=== PATIENT | male | born 1945 | race Caucasian/White ===

== ENCOUNTER → 2020-10-04 | Outpatient (CLI) | payer MEDICARE, OTHER ==
--- NOTE | 2020-10-05 17:40 | SLEEPCENT ---
DATE: 10/04/2020 ORDERED BY: Betsey Alvarez Nocturnal polysomnography was performed for evaluation of sleep physiology in this patient with a history of excessive somnolence and nonrestorative sleep who has significant comorbidities of atrial fibrillation, type 2 diabetes mellitus, coronary artery disease, and borderline pulmonary hypertension. There were 6 hours and 8 minutes of data reviewed. There was 143 minutes of sleep identified. Sleep latency was normal at 2 minutes. REM sleep was delayed at 200 minutes. Sleep architecture showed poor progression and periods of wake. Overall sleep efficiency was 39.5%. The electrocardiogram showed a sinus rhythm with an average heart rate of 60 beats per minute. Rate ranged 40-80 beats per minute. EEG showed reasonably normal waveforms for wake and sleep. There were 43 respiratory events identified of 10 seconds in duration or greater for an apnea-hypopnea index of 18. The events were not exclusive to sleep stage nor body posture. Arousals from respiratory events occurred 8.8 times per hour, and oxygen desaturations were seen below 90%. There was also some activity in the limb leads. Three trains of 30 events were seen. Limb movement arousal index 8.8. IMPRESSION: Obstructive sleep apnea syndrome (G47.33). Apnea-hypopnea index 18. RECOMMENDATION: The patient should be encouraged to return to the sleep disorder center for pressure therapy. In the interim, alcohol and sedative avoidance should be practiced and caution exercised during the operation of motor vehicles.
== END ==
LOC: M SLEEP 20:00
PROVIDERS: ATTEND Nurse Practitioner Family
DX: G47.33 Obstructive sleep apnea (adult) (pediatric) (principal)

== ENCOUNTER 2020-10-23 18:00 | Inpatient (IN) | payer MEDICARE ==
[~2020-10-23] VITALS: Ht 172.7 cm; Wt 89.2 kg
[2020-10-23] MEDS ORDERED: TAMS1CAP17 (18:35)
[2020-10-23] MEDS ORDERED: LISI10TA22 PO (18:35)
[2020-10-23] MEDS ORDERED: ELIQ5TAB PO (18:35)
[2020-10-23] MEDS ORDERED: SIMV40TA20 PO (18:35)
[2020-10-23] MEDS ORDERED: METF10004 PO (18:35)
[2020-10-23 19:34] LABS: BASO # 0.1 10^3/uL (0.0-0.2); BASO % 0.8 % (0.0-1.0); EOS % 0.5 % (0.0-3.0); HEMATOCRIT 46.3 % (42.0-52.0); HEMOGLOBIN 15.5 g/dl (13.5-17.5); LYMPH # 0.8 10^3/uL (1.5-5.0); LYMPH % 12.6 % (24.0-44.0); MEAN CORPUSCULAR HEMOGLOBIN 30.9 pg (27.0-33.0); MEAN CORPUSCULAR HGB CONC 33.5 g/dl (32.0-36.5); MEAN CORPUSCULAR VOLUME 92.2 fl (80.0-96.0); MONO # 0.4 10^3/uL (0.0-0.8); MONO % 7.3 % (2.0-8.0); NEUTROPHILS # 4.7 10^3/uL (1.5-8.5); NEUTROPHILS % 78.5 % (36.0-66.0); PLATELET COUNT, AUTOMATED 172 10^3/uL (150-450); RED BLOOD COUNT 5.02 10^6/uL (4.30-6.10)
--- NOTE | 2020-10-23 19:45 | ECGEPIP ---
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
[2020-10-23 19:47] LABS: ALBUMIN 3.6 GM/DL (3.2-5.2); ALT/SGPT 29 U/L (12-78); BILIRUBIN,DIRECT 0.3 MG/DL (0.0-0.2); BILIRUBIN,TOTAL 0.9 MG/DL (0.2-1.0); BLOOD UREA NITROGEN 31 MG/DL (7-18); CALCIUM LEVEL 8.6 MG/DL (8.8-10.2); CARBON DIOXIDE LEVEL 21 MEQ/L (21-32); CHLORIDE LEVEL 104 MEQ/L (98-107); CK-MB VALUE MASS 3.9 NG/ML (<3.6); CPK CREATINE PHOSPHOKINASE 382 U/L (39-308); GLOMERULAR FILTRATION RATE 48.4 (>42); GLUCOSE, FASTING 175 MG/DL (70-100); MB/CK RELATIVE INDEX 1.02 (< OR =4); POTASSIUM SERUM 4.4 MEQ/L (3.5-5.1); SODIUM LEVEL 135 MEQ/L (136-145); TOTAL PROTEIN 6.9 GM/DL (6.4-8.2); TROPONIN I < 0.02 NG/ML (< 0.10)
[2020-10-23 19:56] LABS: INR 1.41; PROTHROMBIN TIME 17.6 SECONDS (12.5-14.3)
[2020-10-23 20:00] LABS: D-DIMER QUANT 1152.29 ng/ml (<500)
[2020-10-23 20:03] LABS: C REACTIVE PROTEIN QUANTITATIV 7.42 MG/DL (0.00-0.30)
[2020-10-23] MEDS ORDERED: DAYQUIL PO (20:15)
--- NOTE | 2020-10-23 20:31 | REPVR ---
PROCEDURE INFORMATION: Exam: XR Chest Exam date and time: 10/23/2020 8:12 PM Age: 74 years old Clinical indication: Cough and dyspnea; Additional info: Dyspnea/cough TECHNIQUE: Imaging protocol: XR of the chest Views: 1 view. COMPARISON: No relevant prior studies available. FINDINGS: Tubes, catheters and devices: Dual chamber cardiac pacer demonstrated with intact pacer wires. Lungs: Increased markings demonstrated bilaterally predominantly peripherally in the mid and lower lung zones. Although the changes may be chronic the possibility of a acute to subacute pneumonitis not excluded. Pleural spaces: Unremarkable. No pleural effusion. No pneumothorax. Heart/Mediastinum: Unremarkable. No cardiomegaly. Bones/joints: Unremarkable. IMPRESSION: Increased markings demonstrated bilaterally predominantly peripherally in the mid and lower lung zones. Although the changes may be chronic the possibility of a acute to subacute pneumonitis not excluded. Electronically signed by: Chad Pan On 10/23/2020 20:31:45 PM
[2020-10-23] MEDS: APIXABAN 5 MG TAB (ELIQUIS) PO SCH (21:00)
--- NOTE | 2020-10-23 22:14 | HPEPDOC ---
[facility] Medical History & Physical Date of Admission Oct 23, 2020 Date of Service: Oct 23, 2020 Attending Physician: SHASHA QUINTANILLA MD History and Physical CHIEF COMPLAINT: Shortness of breath HISTORY OF PRESENT ILLNESS: Patient is a 74-year-old male, CAD status post stent, atrial fibrillation, on anticoagulation, COPD, hypertension, NIDDM, who presented to the emergency department the evening of 10/23/20 complaining of worsening shortness of breath. Patient reported that his SOB began approximately 10/17/20, worsening following administration of the COVID-19 vaccination on 10/22/20. Reporting a 1 day history of worsening SOB, RODRÍGUEZ, subjective fever and rigors. Out of concern, patient presented to earlier today. A COVID-19 test was performed and patient was determined to be POS. Per report, patient was also hypoxemic with an SPO2 at 88%. Given this, he was transported to the ED for further evaluation. He did receive IV decadron en route. PAST MEDICAL HISTORY: Atrial fibrillation, on Eliquis COPD Hypertension NIDDM ROBERTH CVD PAST SURGICAL HISTORY: CAD/stent placement, 2010 Pacemaker SOCIAL HISTORY: Marital status: Resides in: Live in own home with and granddaughter Employment: Employed part-time at [employer] Tobacco use: Patient is a current every day smoker, 1PPD for approx. 60 years ETOH: Debues ETOH use Illicit drug use: Denies ilicit, IV drugs, including marijuana Other relevant social factors: Patient does wear eyeglasses and upper and lower dentures FAMILY HISTORY: Father: , Alzheimer's and prostate cancer Mother: pacemaker Siblings: Alive, without any known medical history Children: Alive, healthy Hereditary Diseases: Denies any family history of bleeding disorders, breast, lung, colon, pancreatic cancer ALLERGIES: Please see below. REVIEW OF SYSTEMS: CONSTITUTIONAL: Positive three-day history of fever, rigors present as of yesterday, 10/22/20, HEENT: Denies headache, changes in vision, changes in hearing, difficulty swal lowing. No mouth lesions or sores. CARDIOVASCULAR: As any chest pain or chest pressure, no palpitations RESPIRATORY: Reports shortness of breath the last 7 days, worsening since patient received the vaccine on 10/22. Denies any pleuritic chest pain, no orthopnea or PND. Patient does carry a history of a baseline cough with clear phlegm in the a.m. GASTROINTESTINAL: Denies any nausea, vomiting, abdominal pain, constipation or diarrhea no melena or hematochezia GENITOURINARY: Denies any urinary difficulty, including urgency, hesitancy or frequency SKIN: Denies any new or changing skin lesions or rashes, no bruising MUSCULOSKELETAL: As any muscle/joint aches or pains NEUROLOGICAL: Denies any memory deficits, PSYCHIATRIC: Denies any pressure or anxiety ENDOCRINE: History of diabetes, does not check sugars at home, does not remember what his A1c is. HOME MEDICATIONS: Please see below. PHYSICAL EXAMINATION: VITAL SIGNS:Please see below GENERAL APPEARANCE: Patient was interviewed and examined in the emergency department, he was found to be resting comfortably in bed in no acute distress. HEENT: Normocephalic, atraumatic, EOMI, sclera nonicteric CARDIOVASCULAR: Rate and rhythm without murmur, examination limited secondary to disposable stethoscope LUNGS: Clear to auscultation with fair air movement, examination limited secondary to disposable stethoscope ABDOMEN: Half, nontender, nondistended EXTREMITIES: No lower extremity swelling, no calf tenderness bilaterally, able to move extremities equally NEUROLOGICAL: Alert and oriented 3, no aphasia or dysarthria, no facial droop PSYCHIATRIC: Affect are appropriate given patient's current clinical condition LABORATORY DATA: See below. IMAGING: CXR (10/23/20): Increased markings demonstrated bilaterally predominantly perihilarlly in the mid and lower lung zones. Although changes in the chronic possibility of acute and subacute pneumonitis is not excluded. MICROBIOLOGY: Blood cultures (10/23/20): Pending ASSESSMENT: Patient is a 74-year-old male with past medical history significant for CAD status post stent, atrial fibrillation, on anticoagulation, COPD, hypertension, NIDDM who presented to the emergency department the evening of 10/23/20 complaining of worsening shortness of breath. Patient reported that his symptoms began approximately 10/17/20, worsening following administration of the COVID-19 vaccination on 10/22/20. In the emergency department, patient was found to be hypoxic, requiring 2 L of oxygen via nasal cannula. Patient will be admitted for further monitoring and treatment. PLAN: #COVID-19 PNA -Patient tested positive earlier today, 10/23/20 at urgent care, Day #1. Symptoms of increased shortness of breath began on 10/17/20, Day #7. -Patient does have underlying COPD, CAD. D-dimer of 1152. Requiring 3L to maintain sat above 90%. -Continuous pulse ox, continue supplemental oxygen, CPAP at night, contact and airborne precautions, platelets, CRP, INR, BMP, fibrinogen, d-dimer, PT and PTT, ferritin and LDH, troponins. -Dexamethasone 6 mg IV, patient was started on Remdesivir #Lactic acidosis -Suspect secondary hypoxemia -Repeat lactic pending, trend -Conservative use of IVF 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 -BUN/Cr of 24/09.50, c/w last Cr on file in 2010 -Pt does not report history of CKD -Will hold KYM-i -Continue to monitor #Atrial fibrillation, rate controlled -s/p pacemaker, Eliquis for anticoagulation -tele monitoring #CAD -c/w Statin in 2010 #NIDDM -Hold metformin -Diabetic diet, sliding scale, will obtain A1c #HTN -Lisinopril at home -Normotensive, we will hold his KYM inhibitor as we're unsure whether or not his current renal function is baseline #HLD -c/w statin #Obesity, class I -Complicating care -PCP follow-up to discuss healthy lifestyle and diet modifications, coronary vascular exercise 40 minutes 4-5 days per week DVT: Eliquis CODE STATUS: FULL CODE DISPO: home after at least 2 midnight's stay Vital Signs Vital Signs Date Time Temp Pulse Resp B/P (MAP) Pulse Ox O2 Delivery O2 Flow Rate FiO2 10/23/20 18:41 Nasal Cannula 3.0 90 10/23/20 18:08 96.3 79 22 143/72 (95) 92 Laboratory Data Labs 24H Laboratory Tests 2 10/23/20 18:27: Prothrombin Time 17.6H, Prothromb Time International Ratio 1.41, Activated Partial Thromboplast Time 40.0H, D-Dimer, Quantitative 1152.29H, Lactic Acid Level 2.2*H, Ferritin 359, Lactate Dehydrogenase 295H, C-Reactive Protein, Quantitative 7.42H 10/23/20 19:03: Immature Granulocyte % (Auto) 0.3, Neutrophils (%) (Auto) 78.5H, Lymphocytes (%) (Auto) 12.6L, Monocytes (%) (Auto) 7.3, Eosinophils (%) (Auto) 0.5, Basophils (%) (Auto) 0.8, Neutrophils # (Auto) 4.7, Lymphocytes # (Auto) 0.8L, Monocytes # (Auto) 0.4, Eosinophils # (Auto) 0.0, Basophils # (Auto) 0.1, Nucleated Red Blood Cells % (auto) 0.0, Anion Gap 10, Glomerular Filtration Rate 48.4, Calcium Level 8.6L, Total Bilirubin 0.9, Direct Bilirubin 0.3H, Aspartate Amino Transf (AST/SGOT) 27, Alanine Aminotransferase (ALT/SGPT) 29, Alkaline Phosphatase 50, Total Creatine Kinase 382H, Creatine Kinase MB 3.9H, Creatine Kinase MB Relative Index 1.02, Troponin I < 0.02, Total Protein 6.9, Albumin 3.6, Albumin/Globulin Ratio 1.1 CBC/BMP Laboratory Tests 10/23/20 19:03 Microbiology Microbiology 10/23/20 Blood Culture, Received Pending Home Medications Scheduled Apixaban (Eliquis) 5 Mg Tablet, 5 MG PO BID Lisinopril (Lisinopril) 10 Mg Tablet, 10 MG PO DAILY Metformin HCl (Metformin HCl) 1,000 Mg Tablet, 1,000 MG PO BID Simvastatin (Simvastatin) 40 Mg Tablet, 40 MG PO QHS Scheduled PRN [Dayquil] , 2 TABS PO BID PRN for COUGH/ COLD SYMPTOMS PHENYLEPHRINE 5MG/ DEXTROMETHORPHAN 10MG/ ACETAMINOPHEN 325MG IN 1 TAB Allergies Coded Allergies: No Known Allergies (Unverified , 10/23/20) A-FIB/CHADSVASC A-FIB History Current/History of A-Fib/PAF?: Yes Current PO Anticoag Therapy: Yes GME ATTESTATION GME ATTESTATION My faculty preceptor for this patient encounter was physically present during the encounter and was fully available. All aspects of the patient interview, examination, medical decision making process, and medical care plan development were reviewed and approved by the faculty preceptor. The faculty preceptor is aware and concurs with the plan as stated in the body of this note and will attest to such by his/her cosignature. ATTENDING NOTE time of service 1015pm is a 74yr old smoker (since he was 14 or 15 yrs of age) w a hx of CVA, A fib, COPD, HTN, NIDDM & ROBERTH who presented w c/o dyspnea that begun on Friday and was diagnosed with COVID 19 at an urgent care center today; he currently requires 3L of O2 to maintain his O2 sats above 90%. He will be admitted for hypoxemia & acute COPD 2/2 COVID 19. His qCIS Score is 9 points = intermediate risk, since his score is greater than 3 he is a candidate for admission. His 4C mortality sore for COVID-19 is 14 points = 31.4% to 34.9% risk of in-hospital mortality. He also has lactic acidosis which I suspect is type B 2/2 hypoxemia. I discussed smoking cessation with him. Plan: treat for acute COPD 2/2 COVID 19 / trend lactic acid / CPAP w viral filter if available 18cm O2 w supplemental O2 / smoking cessation education / since his COVID scores put him in the high risk category we will check his IL-6 levels and have a low threshold to consult Pulm rest per 's H&P JON REDDING DO Oct 23, 2020 22:14 SHASHA QUINTANILLA MD Oct 23, 2020 23:47
[2020-10-23] MEDS ORDERED: GLUCAGON INJ 1MG VIAL SC PRN (22:50)
[2020-10-23] MEDS ORDERED: DEXTROSE 50% 50 ML SYRINGE IV PRN (22:50)
[2020-10-23] MEDS ORDERED: GLUCOSE 4GM CHEW TABLET PO PRN (22:50)
[2020-10-24] VITALS (8 sets, daily range): BP systolic 110–143; BP diastolic 58–74; O2SAT 91–92
[2020-10-24] MEDS ORDERED: REMDESIVIR 200 MG in NS 250 ML IV ONE ×2
[2020-10-24 00:12] LABS: HEMOGLOBIN A1c 6.9 %
[2020-10-24] MEDS: HumaLOG INSULIN (NovoLOG) PER UNIT SC SCH ×5 (00:20→19:33)
[2020-10-24] MEDS ORDERED: SODIUM CHLORIDE 0.9% INJ 10 ML SYR IV ONE (01:30)
[2020-10-24] MEDS ORDERED: ALBUTEROL 90 MCG/ACT 8GM HFA INHALER INH PRN (03:15)
[2020-10-24] MEDS ORDERED: methylPREDNISolone 125MG 2ML VIAL IV STA (03:15)
[2020-10-24] MEDS: COMBIVENT RESPIMAT 100-20MCG INHALER 4GM INH SCH ×3 (07:29→19:27)
[2020-10-24 07:47] LABS: BASO % 0.7 % (0.0-1.0); HEMATOCRIT 46.5 % (42.0-52.0); HEMOGLOBIN 15.4 g/dl (13.5-17.5); LYMPH # 0.9 10^3/uL (1.5-5.0); LYMPH % 15.6 % (24.0-44.0); MEAN CORPUSCULAR HGB CONC 33.1 g/dl (32.0-36.5); MEAN CORPUSCULAR VOLUME 93.6 fl (80.0-96.0); MONO # 0.3 10^3/uL (0.0-0.8); MONO % 5.6 % (2.0-8.0); NEUTROPHILS # 4.3 10^3/uL (1.5-8.5); NEUTROPHILS % 77.4 % (36.0-66.0); PLATELET COUNT, AUTOMATED 181 10^3/uL (150-450); RED BLOOD COUNT 4.97 10^6/uL (4.30-6.10); WHITE BLOOD COUNT 5.5 10^3/uL (4.0-10.0)
[2020-10-24] MEDS: dexameTHASONE 4 MG/ML 1ML VIAL (J1100 PER 1MG) IV SCH (07:55)
[2020-10-24] MEDS: APIXABAN 5 MG TAB (ELIQUIS) PO SCH ×2 (07:55→19:27)
[2020-10-24] MEDS: PANTOPRAZOLE 40MG TAB (PROTONIX) PO SCH (07:55)
[2020-10-24 08:26] LABS: CALCIUM LEVEL 8.4 MG/DL (8.8-10.2); CREATININE FOR GFR 1.3 MG/DL (0.70-1.30); GLOMERULAR FILTRATION RATE 57.1 (>42); MAGNESIUM LEVEL 2.2 MG/DL (1.8-2.4); POTASSIUM SERUM 4.5 MEQ/L (3.5-5.1)
--- NOTE | 2020-10-24 13:00 | IPNPDOC ---
Text Note Date of Service The patient was seen on 10/24/20. NOTE Subjective: Pt is a 74YO M with a PMH of atrial fibrillation with a pacemaker, CAD, COPD, NIDDMT2, ROBERTH, and COVID vaccination who presents with COVID pneumonia. This is hospital day 2 after pt was started on Remdisivir and Dexamethasone. Pt expresses good appetite, and denies headaches, chest pain, and abdominal pain at this time. Pt denies being on oxygen at home. Objective: General: Pleasant, NAD HEENT: NC, AT. EOMI, no scleral icterus. CV: RRR, Normal S1 and S2. No murmurs, gallops, or rubs. Resp: CTAB with full breath sounds. No wheezes, crackles, or rhonchi. No dullness to percussion. Abdomen: Bowel sounds present. Soft, NT, ND. Extremities: No swelling or edema. Assessment/Plan: #COVID-19 PNA -Patient tested positive on 10/23/20 at urgent care. Symptoms of increased shortness of breath began on 10/17/20, Day #7. -Patient does have underlying COPD, CAD. D-dimer of 1152 and is requiring 3L to maintain sat above 90%. -Continuous pulse ox, continue supplemental oxygen, CPAP at night, contact and airborne precautions, platelets, CRP, INR, BMP, fibrinogen, d-dimer, PT and PTT, ferritin and LDH, troponins. -Dexamethasone 6 mg IV, patient was started on Remdesivir #Lactic acidosis -Suspect secondary hypoxemia -Repeat lactic was 1.9, WNL -Conservative use of IVF due to COVID PNA at this time. 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 -Cr is 1.3 today; Cr 1.5, on file 2010 -Pt does not report history of CKD -Will hold KYM-I -Continue to monitor #Atrial fibrillation, rate controlled -s/p pacemaker, Eliquis for anticoagulation #CAD -c/w Statin in 2010 #NIDDM -Hold metformin -Diabetic diet, sliding scale, will obtain A1c #HTN -Lisinopril at home -Normotensive, holding KYM-I at this time as renal function stabilizes #HLD -c/w home dose statin #Obesity, class I -Complicating care -PCP follow-up to discuss healthy lifestyle and diet modifications, coronary vascular exercise 40 minutes 4-5 days per week DVT: Eliquis Code Status: FULL CODE Disposition: Pending clinical improvement VS,Fishbone, I+O VS, Fishbone, I+O Laboratory Tests 10/23/20 19:03 10/24/20 06:34 Vital Signs Date Time Temp Pulse Resp B/P (MAP) Pulse Ox O2 Delivery O2 Flow Rate FiO2 10/24/20 09:00 4.0 10/24/20 04:11 96.1 60 20 110/63 (79) 94 Nasal Cannula 10/23/20 18:41 90 I&O- Last 24 Hours up to 6 AM 10/24/20 06:00 Intake Total 590 ml Balance 590 ml GME ATTESTATION GME ATTESTATION My faculty preceptor for this patient encounter was physically present during the encounter and was fully available. All aspects of the patient interview, examination, medical decision making process, and medical care plan development were reviewed and approved by the faculty preceptor. The faculty preceptor is aware and concurs with the plan as stated in the body of this note and will attest to such by his/her cosignature. ATTENDING NOTE I, Kevin Dick MD, have independently examined this patient and performed my own physical exam, as well as reviewed the documentation and edited where necessary. I have discussed in detail with the resident / student the findings and plan of treatment as documented by the resident / student and edited their note. I agree with their findings and treatment plan and have edited their documentation. Rafy Suh DO Oct 24, 2020 13:00 KEVIN DICK MD Oct 27, 2020 14:58
[2020-10-24] MEDS: SIMVASTATIN 40 MG TAB PO SCH (19:27)
--- NOTE | 2020-10-24 22:18 | IPNPDOC ---
Text Note Date of Service The patient was seen on 10/24/20. NOTE INTERIM NOTE: 74 yo male, admitted early in the morning on 10/24/20 for COVID PNA, COPD with extensive smoking history. Called to bedside at approx: 2130 to evaluate patient for worsening SOB and increased WOB. Per nursing staff, patient was stable at start of shift, prior to call, patient began desating into the mid 80's. Non-rebreather placed by my arrival time. Saturations increased to 88-90. Examination demonstrated fair/limited air movement throughout. Pt did not appear to be in acute distress. Albuterol treatment administered and Vapotherm initiated at 20/50. Significant improvement noted, saturations increased to 93-94%. Pt resting comfortably. Giv en sudden decline, updated/reviewed advanced directives. Pt clearly reports desire for resuscitation, though adamantly declines intubation. MOLST updated and signed to reflect this. Pt upgraded to PCU status. VS,Fishbone, I+O VS, Fishbone, I+O Laboratory Tests 10/24/20 06:34 Vital Signs Date Time Temp Pulse Resp B/P (MAP) Pulse Ox O2 Delivery O2 Flow Rate FiO2 10/24/20 22:02 50.0 50 10/24/20 20:00 91 High Flow Cannula 10/24/20 19:14 98.2 71 20 143/65 (91) I&O- Last 24 Hours up to 6 AM 10/24/20 06:00 Intake Total 590 ml Balance 590 ml GME ATTESTATION GME ATTESTATION My faculty preceptor for this patient encounter was physically present during the encounter and was fully available. All aspects of the patient interview, examination, medical decision making process, and medical care plan development were reviewed and approved by the faculty preceptor. The faculty preceptor is aware and concurs with the plan as stated in the body of this note and will attest to such by his/her cosignature. ATTENDING NOTE I agree with the above physical findings, assessment, and management plan as documented by my resident physician. JON REDDING DO Oct 24, 2020 22:18 CARLOS BLANDON MD Oct 24, 2020 23:33
[2020-10-24] MEDS: REMDESIVIR 100 MG in NS 250 ML IV SCH (22:31)
[2020-10-25] VITALS (10 sets, daily range): BP systolic 101–133; BP diastolic 56–75; O2SAT 91–95
[2020-10-25] MEDS: SODIUM CHLORIDE 0.9% INJ 10 ML SYR IV SCH
[2020-10-25] MEDS: ACETAMINOPHEN TAB 650MG DOSE (2X325MG) PO PRN ×2 (00:20→01:23)
[2020-10-25] MEDS ORDERED: NICOTINE 21MG/24HR 1 EA TRANSDERMAL As Ordered ONE (00:25)
[2020-10-25] MEDS: NICOTINE 21MG/24HR 1 EA TRANSDERMAL TD SCH (00:35)
[2020-10-25] MEDS ORDERED: hydrOXYzine 25 MG TAB PO ONE (00:45)
[2020-10-25] MEDS ORDERED: ACETAMINOPHEN TAB 650MG DOSE (2X325MG) PO ONE (01:10)
[2020-10-25] MEDS: COMBIVENT RESPIMAT 100-20MCG INHALER 4GM INH SCH ×4 (02:00→20:22)
[2020-10-25 06:35] LABS: BASO # 0.1 10^3/uL (0.0-0.2); BASO % 0.7 % (0.0-1.0); EOS % 0.2 % (0.0-3.0); HEMOGLOBIN 14.3 g/dl (13.5-17.5); LYMPH # 1.3 10^3/uL (1.5-5.0); LYMPH % 15.7 % (24.0-44.0); MEAN CORPUSCULAR HEMOGLOBIN 31.2 pg (27.0-33.0); MEAN CORPUSCULAR VOLUME 91.7 fl (80.0-96.0); MONO # 0.7 10^3/uL (0.0-0.8); MONO % 8.1 % (2.0-8.0); NEUTROPHILS # 6.1 10^3/uL (1.5-8.5); NEUTROPHILS % 74.8 % (36.0-66.0); PLATELET COUNT, AUTOMATED 187 10^3/uL (150-450); RED BLOOD COUNT 4.58 10^6/uL (4.30-6.10); WHITE BLOOD COUNT 8.1 10^3/uL (4.0-10.0)
[2020-10-25 06:44] LABS: INR 1.44; PARTIAL THROMBOPLASTIN TIME 39.7 SECONDS (24.2-38.5); PROTHROMBIN TIME 17.9 SECONDS (12.5-14.3)
[2020-10-25 07:13] LABS: ALBUMIN 3.1 GM/DL (3.2-5.2); ALT/SGPT 37 U/L (12-78); BILIRUBIN,DIRECT 0.2 MG/DL (0.0-0.2); BILIRUBIN,TOTAL 0.5 MG/DL (0.2-1.0); BLOOD UREA NITROGEN 27 MG/DL (7-18); CALCIUM LEVEL 7.9 MG/DL (8.8-10.2); CARBON DIOXIDE LEVEL 23 MEQ/L (21-32); CHLORIDE LEVEL 105 MEQ/L (98-107); CPK CREATINE PHOSPHOKINASE 374 U/L (39-308); CREATININE FOR GFR 1.17 MG/DL (0.70-1.30); FERRITIN 447 NG/ML (26-388); GLOMERULAR FILTRATION RATE > 60.0 (>42); GLUCOSE, FASTING 197 MG/DL (70-100); LDH LACTATE DEHYDROGENASE 318 U/L (87-241); MAGNESIUM LEVEL 2.1 MG/DL (1.8-2.4); NT-PRO BNP 469 PG/ML (<450); POTASSIUM SERUM 3.9 MEQ/L (3.5-5.1); SODIUM LEVEL 136 MEQ/L (136-145); TOTAL PROTEIN 5.9 GM/DL (6.4-8.2); TROPONIN I < 0.02 NG/ML (< 0.10)
[2020-10-25] MEDS: HumaLOG INSULIN (NovoLOG) PER UNIT SC SCH ×4 (08:00→20:55)
[2020-10-25] MEDS: APIXABAN 5 MG TAB (ELIQUIS) PO SCH ×2 (08:01→20:55)
[2020-10-25] MEDS: PANTOPRAZOLE 40MG TAB (PROTONIX) PO SCH (08:01)
[2020-10-25] MEDS: dexameTHASONE 4 MG/ML 1ML VIAL (J1100 PER 1MG) IV SCH (08:01)
[2020-10-25] MEDS ORDERED: predniSONE 20 MG TAB PO SCH (09:00)
--- NOTE | 2020-10-25 10:59 | REP ---
INDICATION: pneumonia COMPARISON: 10/23/2020 TECHNIQUE: Portable AP view of the chest FINDINGS: Lung zuniga demonstrate increased bilateral infiltrates primarily involving the lower lobes (right greater than left). No obvious effusion. No pneumothorax. Mediastinum and cardiac silhouette stable. Skeletal structures stable. IMPRESSION: Increased bilateral multifocal infiltrates (right greater than left). <Electronically signed by Josias Gao > 10/25/20 [id number]
--- NOTE | 2020-10-25 12:01 | IPNPDOC ---
Text Note Date of Service The patient was seen on 10/25/20. NOTE Subjective: Pt is a 74YO M with a PMH of atrial fibrillation with a pacemaker, CAD, COPD, NIDDMT2, ROBERTH, and COVID vaccination who presents with COVID pneumonia. This is hospital day 3 after pt was started on Remdisivir and Dexamethasone. Pt expresses good appetite, and denies headaches, chest pain, and abdominal pain at this time. Pt denies being on oxygen at home. Overnight, pt was anxious and experienced oxygen desaturation. He was placed on vapotherm and given Atarax with resolution of shortness of breath. He states that he feels well today and denies any new concerns. Objective: General: Pleasant, NAD HEENT: NC, AT. EOMI, no scleral icterus. CV: RRR, Normal S1 and S2. No murmurs, gallops, or rubs. Resp: CTAB with full breath sounds. No wheezes, crackles, or rhonchi. No dullness to percussion. Abdomen: Bowel sounds present. Soft, NT, ND. Extremities: No swelling or edema. Assessment/Plan: #COVID-19 PNA -Patient tested positive on 10/23/20 at urgent care. Symptoms of increased shortness of breath began on 10/17/20, Day #8. -Patient does have underlying COPD, CAD. D-dimer of 1152 and is requiring 3L to maintain sat above 90%. -Continuous pulse ox, continue supplemental oxygen, CPAP at night, contact and airborne precautions, platelets, CRP, INR, BMP, fibrinogen, d-dimer, PT and PTT, ferritin and LDH, troponins. -Dexamethasone 6 mg IV, patient was started on Remdesivir -ordered another portable CXR today to appreciate progression of disease -nursing order placed for awake proning. #Lactic acidosis -Suspect secondary hypoxemia -Repeat lactic was 1.9, WNL -Conservative use of IVF due to COVID PNA at this time. 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 -Cr is 1.17 today; Cr 1.5, on file 2010 -Pt does not report history of CKD -Will hold KYM-I -Continue to monitor #Atrial fibrillation, rate controlled -s/p pacemaker, Eliquis for anticoagulation #CAD -c/w Statin in 2010 #NIDDM -Hold metformin -Diabetic diet, sliding scale, will obtain A1c #HTN -Lisinopril at home -Normotensive, holding KYM-I at this time as renal function stabilizes #HLD -c/w home dose statin #Obesity, class I -Complicating care -PCP follow-up to discuss healthy lifestyle and diet modifications, coronary va scular exercise 40 minutes 4-5 days per week DVT: Eliquis Code Status: DNI with limited (still wants CPR, MOLST form completed by Dr. Fernando.) Disposition: Pending clinical improvement VS,Fishbone, I+O VS, Fishbone, I+O Laboratory Tests 10/25/20 05:50 10/25/20 05:54 Vital Signs Date Time Temp Pulse Resp B/P (MAP) Pulse Ox O2 Delivery O2 Flow Rate FiO2 10/25/20 08:00 20.0 45 10/25/20 08:00 97.4 80 20 133/75 (94) 93 HVNI-Vapotherm I&O- Last 24 Hours up to 6 AM 10/25/20 06:00 Intake Total 1680 ml Output Total 800 ml Balance 880 ml GME ATTESTATION GME ATTESTATION My faculty preceptor for this patient encounter was physically present during the encounter and was fully available. All aspects of the patient interview, examination, medical decision making process, and medical care plan development were reviewed and approved by the faculty preceptor. The faculty preceptor is aware and concurs with the plan as stated in the body of this note and will attest to such by his/her cosignature. ATTENDING NOTE I, Kevin Dick MD, have independently examined this patient and performed my own physical exam, as well as reviewed the documentation and edited where necessary. I have discussed in detail with the resident / student the findings and plan of treatment as documented by the resident / student and edited their note. I agree with their findings and treatment plan and have edited their documentation. Rafy Suh DO Oct 25, 2020 12:00 KEVIN DICK MD Oct 27, 2020 14:58
[2020-10-25] MEDS: SIMVASTATIN 40 MG TAB PO SCH (20:55)
[2020-10-25] MEDS: REMDESIVIR 100 MG in NS 250 ML IV SCH (22:48)
[2020-10-26] VITALS (7 sets, daily range): BP systolic 113–134; BP diastolic 55–72; O2SAT 91–92
[2020-10-26] MEDS: SODIUM CHLORIDE 0.9% INJ 10 ML SYR IV SCH (00:28)
[2020-10-26] MEDS: COMBIVENT RESPIMAT 100-20MCG INHALER 4GM INH SCH ×4 (02:00→19:56)
[2020-10-26 05:44] LABS: HEMATOCRIT 44.1 % (42.0-52.0); HEMOGLOBIN 14.7 g/dl (13.5-17.5); MEAN CORPUSCULAR HEMOGLOBIN 30.8 pg (27.0-33.0); MEAN CORPUSCULAR HGB CONC 33.3 g/dl (32.0-36.5); MEAN CORPUSCULAR VOLUME 92.3 fl (80.0-96.0); PLATELET COUNT, AUTOMATED 209 10^3/uL (150-450); RED BLOOD COUNT 4.78 10^6/uL (4.30-6.10); WHITE BLOOD COUNT 8.9 10^3/uL (4.0-10.0)
[2020-10-26 06:02] LABS: BLOOD UREA NITROGEN 24 MG/DL (7-18); CALCIUM LEVEL 8.1 MG/DL (8.8-10.2); CARBON DIOXIDE LEVEL 28 MEQ/L (21-32); CHLORIDE LEVEL 108 MEQ/L (98-107); CREATININE FOR GFR 1.05 MG/DL (0.70-1.30); GLOMERULAR FILTRATION RATE > 60.0 (>42); GLUCOSE, FASTING 161 MG/DL (70-100); POTASSIUM SERUM 4.2 MEQ/L (3.5-5.1); SODIUM LEVEL 138 MEQ/L (136-145)
[2020-10-26 06:12] LABS: ATYPICAL LYMPH 3 % (0-5); EOSINOPHILS 2 % (0-3); LYMPHOCYTES 15 % (16-44); MONOCYTES 3 % (0-5); NEUTROPHILS 77 % (28-66); PLATELET ESTIMATE NORMAL (NORMAL)
[2020-10-26] MEDS: HumaLOG INSULIN (NovoLOG) PER UNIT SC SCH ×4 (07:45→22:30)
[2020-10-26] MEDS: NICOTINE 21MG/24HR 1 EA TRANSDERMAL TD SCH (08:46)
[2020-10-26] MEDS: dexameTHASONE 4 MG/ML 1ML VIAL (J1100 PER 1MG) IV SCH (08:46)
[2020-10-26] MEDS: APIXABAN 5 MG TAB (ELIQUIS) PO SCH ×2 (08:46→22:28)
[2020-10-26] MEDS: PANTOPRAZOLE 40MG TAB (PROTONIX) PO SCH (08:46)
[2020-10-26] MEDS ORDERED: DOCUSATE SODIUM 100MG CAPSULE PO PRN (09:10)
[2020-10-26] MEDS ORDERED: FUROSEMIDE 20MG/2ML VIAL (J1940) IV ONE (11:00)
--- NOTE | 2020-10-26 11:15 | REP ---
INDICATION: worsening hypoxia COMPARISON: 10/25/2020 TECHNIQUE: Portable AP view of the chest FINDINGS: Diffuse bilateral airspace disease again noted and relatively similar to prior examination although mild progression cannot be excluded. No obvious effusion. No pneumothorax. Mediastinum and cardiac silhouette including pacemaker are stable. Skeletal structures are intact. IMPRESSION: Diffuse bilateral airspace disease (right greater than left) relatively similar to prior examination. <Electronically signed by Josias Gao > 10/26/20 1111
[2020-10-26 11:24] LABS: FERRITIN 468 NG/ML (26-388); LDH LACTATE DEHYDROGENASE 321 U/L (87-241)
--- NOTE | 2020-10-26 11:24 | IPNPDOC ---
Text Note Date of Service The patient was seen on 10/26/20. NOTE Subjective: Pt is a 74YO M with a PMH of atrial fibrillation with a pacemaker, CAD, COPD, NIDDMT2, ROBERTH, and COVID vaccination who presents with COVID pneumonia. This is hospital day 3 after pt was started on Remdisivir and Dexamethasone. Pt expresses good appetite, and denies headaches, chest pain, and abdominal pain at this time. Pt denies being on oxygen at home. Overnight, they both are FiO2 was titrated up to 75%. This morning it was able to be titrated down to 70%. Pt states that he feels well today and expresses a good appetite. He denies any new concerns. . He denies any headaches, chest pain or palpitations and abdominal pain at this time. Objective: General: Pleasant, NAD HEENT: NC, AT. EOMI, no scleral icterus. CV: RRR, Normal S1 and S2.* No murmurs, gallops, or rubs. Resp: CTAB with full breath sounds.* No wheezes, crackles, or rhonchi.* No dullness to percussion. Abdomen: Bowel sounds present. Soft, NT, ND. Extremities: No swelling or edema. *Difficult to auscultate due to auditory interruption by Vapotherm machine. Assessment/Plan: #COVID-19 PNA -Patient tested positive on 10/23/20 at urgent care. Symptoms of increased shortness of breath began on 10/17/20, Day #9. -Patient does have underlying COPD, CAD. D-dimer of 1152 and is requiring 3L to maintain sat above 90%. -Continuous pulse ox, continue supplemental oxygen, CPAP at night, contact and airborne precautions, platelets, CRP, INR, BMP, fibrinogen, d-dimer, PT and PTT, ferritin and LDH, troponins. -Dexamethasone 6 mg IV, patient was started on Remdesivir -ordered another portable CXR today to appreciate progression of disease -nursing order placed for awake proning. -IV 20 mg Lasix ordered once to alleviate interstitial edema. -Toclizumab ordered due to patient's increasing O2 requirement. #Lactic acidosis -Suspect secondary hypoxemia -Repeat lactic was 1.9, WNL -Conservative use of IVF due to COVID PNA at this time. 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 -Cr is 1.05 today; Cr 1.5, on file 2010 -Pt does not report history of CKD -Will hold KYM-I -Continue to monitor #Atrial fibrillation, rate controlled -s/p pacemaker, Eliquis for anticoagulation #CAD -c/w Statin in 2010 #NIDDM -Hold metformin -Diabetic diet, sliding scale, will obtain A1c #HTN -Lisinopril at home -Normotensive, holding KYM-I at this time as renal function stabilizes #HLD -c/w home dose statin #Obesity, class I -Complicating care -PCP follow-up to discuss healthy lifestyle and diet modifications, coronary vascular exercise 40 minutes 4-5 days per week DVT: Eliquis Code Status: DNI, limited, patient would still like to receive chest compressions, MOLST form completed by Dr. Fernando in chart. Disposition: Pending clinical improvement VS,Fishbone, I+O VS, Fishbone, I+O Laboratory Tests 10/26/20 05:11 Vital Signs Date Time Temp Pulse Resp B/P (MAP) Pulse Ox O2 Delivery O2 Flow Rate FiO2 10/26/20 08:00 18.0 70 10/26/20 08:00 96.0 64 20 115/72 (86) 91 HVNI-Vapotherm I&O- Last 24 Hours up to 6 AM 10/26/20 06:00 Intake Total 870 ml Output Total 900 ml Balance -30 ml GME ATTESTATION GME ATTESTATION My faculty preceptor for this patient encounter was physically present during the encounter and was fully available. All aspects of the patient interview, examination, medical decision making process, and medical care plan development were reviewed and approved by the faculty preceptor. The faculty preceptor is aware and concurs with the plan as stated in the body of this note and will attest to such by his/her cosignature. ATTENDING NOTE I, Kevin Dick MD, have independently examined this patient and performed my own physical exam, as well as reviewed the documentation and edited where necessary. I have discussed in detail with the resident / student the findings and plan of treatment as documented by the resident / student and edited their note. I agree with their findings and treatment plan and have edited their documentation. Rafy Suh DO Oct 26, 2020 11:23 KEVIN DICK MD Oct 27, 2020 14:58
[2020-10-26] MEDS ORDERED: diphenhydrAMINE 25MG CAP PO PRN (14:00)
[2020-10-26] MEDS ORDERED: diphenhydrAMINE 50MG/ML VIAL (J1200) IV PRN (14:00)
[2020-10-26] MEDS ORDERED: EPINEPHrine INJ 1 MG/ML 1ML AMP IM PRN (14:00)
[2020-10-26] MEDS ORDERED: methylPREDNISolone 125MG 2ML VIAL IV PRN (14:00)
[2020-10-26] MEDS ORDERED: [UNRECOGNIZED DRUG - OTHER] IV ONE ×4 (14:00)
[2020-10-26] MEDS ORDERED: ALBUTEROL SULFATE 2.5 MG/0.5 ML INH NEB SOLN INH PRN (14:00)
[2020-10-26] MEDS: REMDESIVIR 100 MG in NS 250 ML IV SCH (22:28)
[2020-10-26] MEDS: SIMVASTATIN 40 MG TAB PO SCH (22:28)
[2020-10-27] VITALS (8 sets, daily range): BP systolic 126–136; BP diastolic 66–75; O2SAT 92–93
[2020-10-27] MEDS: SODIUM CHLORIDE 0.9% INJ 10 ML SYR IV SCH ×2 (00:04→23:03)
[2020-10-27] MEDS: COMBIVENT RESPIMAT 100-20MCG INHALER 4GM INH SCH ×4 (02:00→19:19)
[2020-10-27 04:57] LABS: HEMATOCRIT 42.3 % (42.0-52.0); HEMOGLOBIN 14.5 g/dl (13.5-17.5); MEAN CORPUSCULAR HEMOGLOBIN 31.7 pg (27.0-33.0); MEAN CORPUSCULAR HGB CONC 34.3 g/dl (32.0-36.5); MEAN CORPUSCULAR VOLUME 92.6 fl (80.0-96.0); PLATELET COUNT, AUTOMATED 228 10^3/uL (150-450); RED BLOOD COUNT 4.57 10^6/uL (4.30-6.10); WHITE BLOOD COUNT 8.8 10^3/uL (4.0-10.0)
[2020-10-27 05:04] LABS: ATYPICAL LYMPH 6 % (0-5); INR 1.31; LYMPHOCYTES 18 % (16-44); MONOCYTES 5 % (0-5); NEUTROPHILS 71 % (28-66); PARTIAL THROMBOPLASTIN TIME 37.8 SECONDS (24.2-38.5); PROTHROMBIN TIME 16.6 SECONDS (12.5-14.3)
[2020-10-27 05:05] LABS: PLATELET ESTIMATE NORMAL (NORMAL)
[2020-10-27 05:06] LABS: ANISOCYTOSIS 1+
[2020-10-27 05:07] LABS: D-DIMER QUANT 780.71 ng/ml (<500)
[2020-10-27 05:16] LABS: ERYTHROCYTE SEDIMENTATION RATE 35 mm/hr (0-20)
[2020-10-27 05:20] LABS: ALBUMIN 2.9 GM/DL (3.2-5.2); ALT/SGPT 46 U/L (12-78); BILIRUBIN,DIRECT 0.2 MG/DL (0.0-0.2); BILIRUBIN,TOTAL 0.5 MG/DL (0.2-1.0); BLOOD UREA NITROGEN 23 MG/DL (7-18); C REACTIVE PROTEIN QUANTITATIV 2.68 MG/DL (0.00-0.30); CALCIUM LEVEL 7.8 MG/DL (8.8-10.2); CARBON DIOXIDE LEVEL 29 MEQ/L (21-32); CHLORIDE LEVEL 106 MEQ/L (98-107); CPK CREATINE PHOSPHOKINASE 112 U/L (39-308); CREATININE FOR GFR 1.17 MG/DL (0.70-1.30); FERRITIN 455 NG/ML (26-388); GLOMERULAR FILTRATION RATE > 60.0 (>42); GLUCOSE, FASTING 207 MG/DL (70-100); LDH LACTATE DEHYDROGENASE 299 U/L (87-241); MAGNESIUM LEVEL 2.1 MG/DL (1.8-2.4); NT-PRO BNP 754 PG/ML (<450); POTASSIUM SERUM 3.9 MEQ/L (3.5-5.1); SODIUM LEVEL 138 MEQ/L (136-145); TOTAL PROTEIN 6.6 GM/DL (6.4-8.2); TROPONIN I < 0.02 NG/ML (< 0.10)
[2020-10-27] MEDS: NICOTINE 21MG/24HR 1 EA TRANSDERMAL TD SCH (08:51)
[2020-10-27] MEDS: PANTOPRAZOLE 40MG TAB (PROTONIX) PO SCH (08:51)
[2020-10-27] MEDS: HumaLOG INSULIN (NovoLOG) PER UNIT SC SCH ×4 (08:51→20:15)
[2020-10-27] MEDS: APIXABAN 5 MG TAB (ELIQUIS) PO SCH ×2 (08:51→20:10)
[2020-10-27] MEDS: dexameTHASONE 4 MG/ML 1ML VIAL (J1100 PER 1MG) IV SCH (08:51)
--- NOTE | 2020-10-27 09:29 | IPNPDOC ---
Text Note Date of Service The patient was seen on 10/27/20. NOTE Subjective: Pt is a 74YO M with a PMH of atrial fibrillation with a pacemaker, CAD, COPD, NIDDMT2, ROBERTH, and COVID vaccination who presents with COVID pneumonia. This is hospital day 3 after pt was started on Remdisivir and Dexamethasone. Pt expresses good appetite, and denies headaches, chest pain, and abdominal pain at this time. Pt denies being on oxygen at home. Overnight, they both are FiO2 requirement was 70%. This morning the nurse tried to titrate down to 65% but was unable to due to oxygenation dropping below 88%. Pt states that he feels well today and expresses a good appetite. He denies any new concerns. He denies any headaches, chest pain or palpitations and abdominal pain at this time. He reports that he wants to go home and feels well enough to do so. Objective: General: Pleasant, NAD HEENT: NC, AT. EOMI, no scleral icterus. CV: RRR, Normal S1 and S2.* No murmurs, gallops, or rubs. Resp: CTAB with full breath sounds.* No wheezes, crackles, or rhonchi.* No dullness to percussion. Abdomen: Bowel sounds present. Soft, NT, ND. Extremities: No swelling or edema. *Difficult to auscultate due to auditory interruption by Vapotherm machine. Assessment/Plan: #COVID-19 PNA -Patient tested positive on 10/23/20 at urgent care. Symptoms of increased shortness of breath began on 10/17/20, Day #9. -Patient does have underlying COPD, CAD. D-dimer of 1152 and is requiring 3L to maintain sat above 90%. -Continuous pulse ox, continue supplemental oxygen, CPAP at night, contact and airborne precautions, platelets, CRP, INR, BMP, fibrinogen, d-dimer, PT and PTT, ferritin and LDH, troponins. -Dexamethasone 6 mg IV, patient was started on Remdesivir -ordered another portable CXR today to appreciate progression of disease -nursing order placed for awake proning. -IV 20 mg Lasix ordered once on 10/26/2020 to alleviate interstitial edema. -Toclizumab administered on 10/26/2020 due to patient's increasing O2 requirement. #Lactic acidosis -Suspect secondary hypoxemia -Repeat lactic was 1.9, WNL -Conservative use of IVF due to COVID PNA at this time. 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 -Cr is 1.05 today; Cr 1.5, on file 2010 -Pt does not report history of CKD -Will hold KYM-I -Continue to monitor #Atrial fibrillation, rate controlled -s/p pacemaker, Eliquis for anticoagulation #CAD -c/w Statin in 2010 #NIDDM -Hold metformin -Diabetic diet, sliding scale, will obtain A1c #HTN -Lisinopril at home -Normotensive, holding KYM-I at this time as renal function stabilizes #HLD -c/w home dose statin #Obesity, class I -Complicating care -PCP follow-up to discuss healthy lifestyle and diet modifications, coronary vascular exercise 40 minutes 4-5 days per week DVT: Eliquis Code Status: DNI, limited, patient would still like to receive chest compressions, MOLST form completed by Dr. Fernando in chart. Disposition: Pending clinical improvement VS,Fishbone, I+O VS, Fishbone, I+O Laboratory Tests 10/27/20 04:39 Vital Signs Date Time Temp Pulse Resp B/P (MAP) Pulse Ox O2 Delivery O2 Flow Rate FiO2 10/27/20 07:52 97.2 56 17 134/66 (88) 93 HVNI-Vapotherm 25.0 65 I&O- Last 24 Hours up to 6 AM 10/27/20 05:59 Intake Total 1990 ml Output Total 2050 ml Balance -60 ml GME ATTESTATION GME ATTESTATION My faculty preceptor for this patient encounter was physically present during the encounter and was fully available. All aspects of the patient interview, examination, medical decision making process, and medical care plan development were reviewed and approved by the faculty preceptor. The faculty preceptor is aware and concurs with the plan as stated in the body of this note and will attest to such by his/her cosignature. ATTENDING NOTE I, Kevin Prescott MD, have independently examined this patient and performed my own physical exam, as well as reviewed the documentation and edited where necessary. I have discussed in detail with the resident / student the findings and plan of treatment as documented by the resident / student and edited their note. I agree with their findings and treatment plan and have edited their documentation. This is a 74-year-old male with past medical history of atrial fibrillation on anticoagulation with a pacemaker, CAD s/p pci , COPD no home oxygen, NIDDMT2, ROBERTH, and who presents to the emergency department the evening of 10/23/20 compl aining of worsening shortness of breath. Patient reported that his SOB began approximately 10/17/20, worsening following administration of the COVID-19 vaccination on 10/22/20. Reporting a 1 day history of worsening SOB, RODRÍGUEZ, subjective fever and rigors. A COVID-19 test was performed and patient was positive Per report, patient was also hypoxemic with an SPO2 at 88%. Given this, he was transported to the ED for further evaluation. He did receive IV decadron en route. He had the radiological features of diffuse interstitial pneumonia, which has been stable over the last 3 days. He was initially on only nasal cannula, but his oxygen requirement has increased and currently he is on 25 L and 70% FiO2. He has gotten remdesevir , which is his D5 along with dexamethasone as well. He continues to be on full dose and accommodation with Eliquis. He was given monoclonal toculizimab as well on 10/26/20 with no major improvement. He continues to have pronating as well as incentive spirometry. He was given 1 dose of Lasix as well as the keep him on the drum drier side. He is stable at this time but continues to require high oxygen requirements. Continue to titrate the high flow. Continue monitoring his infirmity markers every 48-72 hours. Disposition unknown at this time Rafy Suh DO Oct 27, 2020 09:26 KEVIN PRESCOTT MD Oct 27, 2020 15:00
[2020-10-27] MEDS: SIMVASTATIN 40 MG TAB PO SCH (20:10)
[2020-10-27] MEDS: REMDESIVIR 100 MG in NS 250 ML IV SCH (23:03)
[2020-10-28] VITALS (10 sets, daily range): BP systolic 138–156; BP diastolic 71–87; O2SAT 90–92
[2020-10-28] MEDS: COMBIVENT RESPIMAT 100-20MCG INHALER 4GM INH SCH ×4 (01:37→20:24)
[2020-10-28 07:11] LABS: BASO # 0.1 10^3/uL (0.0-0.2); BASO % 0.5 % (0.0-1.0); EOS # 0.1 10^3/uL (0.0-0.5); EOS % 1.1 % (0.0-3.0); HEMATOCRIT 44.9 % (42.0-52.0); LYMPH # 2.2 10^3/uL (1.5-5.0); LYMPH % 19.7 % (24.0-44.0); MEAN CORPUSCULAR HEMOGLOBIN 31.2 pg (27.0-33.0); MEAN CORPUSCULAR HGB CONC 33.4 g/dl (32.0-36.5); MEAN CORPUSCULAR VOLUME 93.3 fl (80.0-96.0); MONO # 0.5 10^3/uL (0.0-0.8); MONO % 4.3 % (2.0-8.0); NEUTROPHILS # 8.3 10^3/uL (1.5-8.5); NEUTROPHILS % 73.9 % (36.0-66.0); PLATELET COUNT, AUTOMATED 272 10^3/uL (150-450); RED BLOOD COUNT 4.81 10^6/uL (4.30-6.10); WHITE BLOOD COUNT 11.3 10^3/uL (4.0-10.0)
[2020-10-28 07:34] LABS: BLOOD UREA NITROGEN 25 MG/DL (7-18); CALCIUM LEVEL 8.2 MG/DL (8.8-10.2); CARBON DIOXIDE LEVEL 28 MEQ/L (21-32); CHLORIDE LEVEL 105 MEQ/L (98-107); CREATININE FOR GFR 1.07 MG/DL (0.70-1.30); GLOMERULAR FILTRATION RATE > 60.0 (>42); GLUCOSE, FASTING 235 MG/DL (70-100); MAGNESIUM LEVEL 2.2 MG/DL (1.8-2.4); POTASSIUM SERUM 4.2 MEQ/L (3.5-5.1); SODIUM LEVEL 138 MEQ/L (136-145)
[2020-10-28] MEDS: PANTOPRAZOLE 40MG TAB (PROTONIX) PO SCH (08:14)
[2020-10-28] MEDS: NICOTINE 21MG/24HR 1 EA TRANSDERMAL TD SCH (08:14)
[2020-10-28] MEDS: HumaLOG INSULIN (NovoLOG) PER UNIT SC SCH ×4 (08:14→20:40)
[2020-10-28] MEDS: APIXABAN 5 MG TAB (ELIQUIS) PO SCH ×2 (08:14→20:38)
[2020-10-28] MEDS: dexameTHASONE 4 MG/ML 1ML VIAL (J1100 PER 1MG) IV SCH (08:14)
--- NOTE | 2020-10-28 09:04 | IPNPDOC ---
Text Note Date of Service The patient was seen on 10/28/20. NOTE HPI: Pt is a 74 year old male with a past medical history of atrial fibrillation s/p pacemaker, CAD, COPD, and ROBERTH who was admitted to [facility] due to dyspnea started around 10/17/2020 and was admitted for COVID pneumonia. Pt denies any fever, chills, chest pain, palpitations, dyspnea, or abdominal pain at the tune if examination. It was noted that patient had exertional dyspnea with oxygen saturation dropped to 82% during exertion with vapotherm Physical examination: General: Pleasant, not in acute distress HEENT: Normocephalic, atraumatic, vapotherm on, no scleral icterus. CV: RRR, Normal S1 and S2. No murmurs noted. Resp: Clear to auscultation bilaterally. No obvious accessory muscle use, labored breathing, wheezing, crackles, or rhonchi noted at the time of examination. However auscultation is difficult due to vapotherm machine. Abdomen: Bowel sounds present in all 4 quadrants, soft, no guarding or distention. No tenderness upon palpation in all 4 quadrants. Extremities: No swelling or edema in bilateral lower extremity. Assessment/Plan: #COVID-19 pneumonia -Patient tested positive on 10/23/20 at urgent care -Patient has continue to be on vapotherm flow rate with 30 FiO2 60 to maintain oxygen saturation. It was noted that patient has been having exertional dyspnea with oxygen sat droppped to 82% with exertion with vapotherm on. He was on Vapotherm flow rate 35 with FiO2 65 earlier -Continuous pulse ox, oxygen therapy, CPAP inpt at night, contact and airborne precautions -respiratory therapy, IS lung expansion -Dexamethasone 6 mg IV and Remdesivir since 10/24/2020. Patient received Tocilizumab on 10/26/2020 -Procalcitonin 0.12 and 0.06, trending down -Patient denies any fever or chills -Toclizumab administered on 10/26/2020 due to patient's increasing O2 requirement #Atrial fibrillation, rate controlled -s/p pacemaker -RRR at time of examination -Continue Eliquis for anticoagulation #History of CAD -Continue Statin -Patient on anticoagulation Eliquis due to history of A. fib #NIDDM -Continue to hold [employer] med metformin -Continue Diabetic diet, sliding scale, glucose checks AC&HS, and hypoglycemia protocol -A1C 6.9 #HTN -Patient has been on Lisinopril at home -Blood pressure grossly unremarkable, patient's home med Lisinopril has been held since admission #Hyperlipidemia -continue with home dose statin #Obesity -Complicating care -Patient will discuss with PCP at follow-up appointments o discuss healthy lifestyle and diet modifications DVT prophylaxis: On Eliquis due to history of a. fib Code Status: DNI, limited, patient would still like to receive chest ej sions Disposition: Pending clinical improvement/oxygen titration Attending Note: Patient seen and examined independently. Agree with resident's note and plan of care. VS,Fishbone, I+O VS, Fishbone, I+O Laboratory Tests 10/28/20 06:21 10/28/20 06:22 Vital Signs Date Time Temp Pulse Resp B/P (MAP) Pulse Ox O2 Delivery O2 Flow Rate FiO2 10/28/20 08:19 96.3 64 20 148/78 (101) 89 HVNI-Vapotherm 30.0 60 I&O- Last 24 Hours up to 6 AM 10/28/20 06:00 Intake Total 2370 ml Output Total 1800 ml Balance 570 ml MISAEL HENDRICKS DO Oct 28, 2020 09:04 JODY SANTIAGO MD Oct 30, 2020 18:40
[2020-10-28] MEDS: SIMVASTATIN 40 MG TAB PO SCH (20:38)
[2020-10-28] MEDS: REMDESIVIR 100 MG in NS 250 ML IV SCH (22:56)
[2020-10-28] MEDS: SODIUM CHLORIDE 0.9% INJ 10 ML SYR IV SCH (22:56)
[2020-10-29] VITALS: BP 129/80; O2SAT 93
[2020-10-29] MEDS: COMBIVENT RESPIMAT 100-20MCG INHALER 4GM INH SCH ×4 (01:06→19:39)
[2020-10-29 05:30] VITALS: O2SAT 91
[2020-10-29 05:52] VITALS: BP 144/84
[2020-10-29 07:30] LABS: BASO # 0.1 10^3/uL (0.0-0.2); BASO % 0.6 % (0.0-1.0); EOS # 0.1 10^3/uL (0.0-0.5); EOS % 1.2 % (0.0-3.0); HEMATOCRIT 45.7 % (42.0-52.0); HEMOGLOBIN 15.5 g/dl (13.5-17.5); LYMPH # 2.7 10^3/uL (1.5-5.0); LYMPH % 22.5 % (24.0-44.0); MEAN CORPUSCULAR HGB CONC 33.9 g/dl (32.0-36.5); MEAN CORPUSCULAR VOLUME 91.4 fl (80.0-96.0); MONO # 0.6 10^3/uL (0.0-0.8); NEUTROPHILS # 8.3 10^3/uL (1.5-8.5); PLATELET COUNT, AUTOMATED 293 10^3/uL (150-450); WHITE BLOOD COUNT 11.9 10^3/uL (4.0-10.0)
[2020-10-29 07:44] LABS: INR 1.27; PROTHROMBIN TIME 16.2 SECONDS (12.5-14.3)
[2020-10-29 07:45] LABS: PARTIAL THROMBOPLASTIN TIME 32.6 SECONDS (24.2-38.5)
[2020-10-29 07:56] LABS: ALBUMIN 3.2 GM/DL (3.2-5.2); ALT/SGPT 66 U/L (12-78); BILIRUBIN,DIRECT 0.2 MG/DL (0.0-0.2); BILIRUBIN,TOTAL 0.6 MG/DL (0.2-1.0); BLOOD UREA NITROGEN 26 MG/DL (7-18); CALCIUM LEVEL 8.5 MG/DL (8.8-10.2); CARBON DIOXIDE LEVEL 27 MEQ/L (21-32); CHLORIDE LEVEL 104 MEQ/L (98-107); CPK CREATINE PHOSPHOKINASE 104 U/L (39-308); FERRITIN 571 NG/ML (26-388); GLOMERULAR FILTRATION RATE > 60.0 (>42); GLUCOSE, FASTING 202 MG/DL (70-100); LDH LACTATE DEHYDROGENASE 329 U/L (87-241); NT-PRO BNP 713 PG/ML (<450); POTASSIUM SERUM 4.3 MEQ/L (3.5-5.1); SODIUM LEVEL 137 MEQ/L (136-145); TOTAL PROTEIN 6.3 GM/DL (6.4-8.2); TROPONIN I < 0.02 NG/ML (< 0.10)
[2020-10-29] MEDS: NICOTINE 21MG/24HR 1 EA TRANSDERMAL TD SCH (08:15)
[2020-10-29] MEDS: dexameTHASONE 4 MG/ML 1ML VIAL (J1100 PER 1MG) IV SCH (08:15)
[2020-10-29] MEDS: PANTOPRAZOLE 40MG TAB (PROTONIX) PO SCH (08:16)
[2020-10-29] MEDS: APIXABAN 5 MG TAB (ELIQUIS) PO SCH ×2 (08:16→21:15)
[2020-10-29] MEDS: HumaLOG INSULIN (NovoLOG) PER UNIT SC SCH ×4 (08:16→21:17)
[2020-10-29 08:19] VITALS: BP 139/80
[2020-10-29 11:53] VITALS: BP 125/73
--- NOTE | 2020-10-29 16:14 | IPNPDOC ---
Text Note Date of Service The patient was seen on 10/29/20. NOTE Subjective: Patient has no new medical complaints this morning. States he is feeling better. No acute overnight events reported. Objective: General: Pleasant, not in acute distress HEENT: NC/AT, vapotherm on CV: RRR, Normal S1 and S2. No murmurs noted. Resp: CTA B/L, labored breathing Assessment/Plan: #COVID-19 pneumonia -Patient tested positive on 10/23/20 at urgent care -continue supplemental oxygen with vapotherm - patient has been having exertional dyspnea with oxygen sat dropped to 82% with exertion with vapotherm on. -Continuous pulse ox, oxygen therapy, CPAP at night, contact and airborne precautions -respiratory treatment, incentive spirometry -Dexamethasone 6 mg IV and Remdesivir since 10/24/2020 -Procalcitonin trending down -Toclizumab administered on 10/26/2020 due to patient's increasing O2 requirement #Atrial fibrillation - rate controlled -Continue Eliquis for anticoagulation #History of CAD -Continue Statin #NIDDM -Continue to hold home med - metformin -Continue Diabetic diet, sliding scale, glucose checks AC&HS, and hypoglycemia protocol -A1C 6.9 #HTN -Patient has been on Lisinopril at home - held inpatient for now #HLD -continue with home dose statin #Obesity -Complicating care -Patient will discuss with PCP at follow-up appointments o discuss healthy lifestyle and diet modifications DVT prophylaxis: On Eliquis due to history of a. fib Code Status: DNI, limited, patient would still like to receive chest compressions Disposition: Pending clinical improvement/oxygen titration VS,Santobone, I+O VS, Fishbone, I+O Vital Signs Date Time Temp Pulse Resp B/P (MAP) Pulse Ox O2 Delivery O2 Flow Rate FiO2 10/29/20 05:52 96.5 60 18 144/84 (104) 91 High Flow Cannula 30.0 60 I&O- Last 24 Hours up to 6 AM 10/29/20 06:00 Intake Total 1710 ml Output Total 1500 ml Balance 210 ml JODY SANTIAGO MD Oct 29, 2020 07:00
[2020-10-29 21:00] VITALS: BP 137/80; O2SAT 91
[2020-10-29] MEDS: SIMVASTATIN 40 MG TAB PO SCH (21:15)
[2020-10-29] MEDS: SODIUM CHLORIDE 0.9% INJ 10 ML SYR IV SCH (23:11)
[2020-10-29] MEDS: REMDESIVIR 100 MG in NS 250 ML IV SCH (23:11)
[2020-10-30] VITALS (7 sets, daily range): BP systolic 119–137; BP diastolic 69–93; O2SAT 88–94
[2020-10-30] MEDS: COMBIVENT RESPIMAT 100-20MCG INHALER 4GM INH SCH ×4 (01:00→20:16)
[2020-10-30 06:25] LABS: BASO # 0.1 10^3/uL (0.0-0.2); BASO % 0.7 % (0.0-1.0); EOS # 0.2 10^3/uL (0.0-0.5); EOS % 1.1 % (0.0-3.0); HEMATOCRIT 46.1 % (42.0-52.0); HEMOGLOBIN 15.9 g/dl (13.5-17.5); LYMPH # 2.8 10^3/uL (1.5-5.0); LYMPH % 20.4 % (24.0-44.0); MEAN CORPUSCULAR HEMOGLOBIN 31.5 pg (27.0-33.0); MEAN CORPUSCULAR HGB CONC 34.5 g/dl (32.0-36.5); MEAN CORPUSCULAR VOLUME 91.3 fl (80.0-96.0); MONO # 0.7 10^3/uL (0.0-0.8); MONO % 5.2 % (2.0-8.0); NEUTROPHILS # 9.6 10^3/uL (1.5-8.5); NEUTROPHILS % 71.3 % (36.0-66.0); PLATELET COUNT, AUTOMATED 296 10^3/uL (150-450); RED BLOOD COUNT 5.05 10^6/uL (4.30-6.10); WHITE BLOOD COUNT 13.5 10^3/uL (4.0-10.0)
[2020-10-30 06:43] LABS: BLOOD UREA NITROGEN 29 MG/DL (7-18); CALCIUM LEVEL 8.4 MG/DL (8.8-10.2); CARBON DIOXIDE LEVEL 27 MEQ/L (21-32); CHLORIDE LEVEL 103 MEQ/L (98-107); CREATININE FOR GFR 1.14 MG/DL (0.70-1.30); GLOMERULAR FILTRATION RATE > 60.0 (>42); GLUCOSE, FASTING 219 MG/DL (70-100); MAGNESIUM LEVEL 2.1 MG/DL (1.8-2.4); POTASSIUM SERUM 4.4 MEQ/L (3.5-5.1); SODIUM LEVEL 136 MEQ/L (136-145)
[2020-10-30] MEDS: NICOTINE 21MG/24HR 1 EA TRANSDERMAL TD SCH (08:13)
[2020-10-30] MEDS: dexameTHASONE 4 MG/ML 1ML VIAL (J1100 PER 1MG) IV SCH (08:14)
[2020-10-30] MEDS: HumaLOG INSULIN (NovoLOG) PER UNIT SC SCH ×4 (08:14→20:34)
[2020-10-30] MEDS: PANTOPRAZOLE 40MG TAB (PROTONIX) PO SCH (08:14)
[2020-10-30] MEDS: APIXABAN 5 MG TAB (ELIQUIS) PO SCH ×2 (08:14→20:33)
--- NOTE | 2020-10-30 14:07 | IPNPDOC ---
Subjective Date Seen The patient was seen on 10/30/20. Subjective Chief Complaint/HPI Subjective: Patient seen at bedside this morning. Did not report any episodes of shortness of breath at night. He is able to that above 94% on 30 L, 60% FiO2 overnight without desaturations. This morning he was able to tolerate without any desaturations on 50% FiO2. Vision. States that he's feeling well and has been using his Acapella device, which helps break up some of the mucus; also using incentive spirometry hourly. No acute events reported by nursing overnight or this morning. Objective: Vital signs: Please see below General: Pleasant, not in acute distress, saturating 94% on 30 L 50% FiO2 of Vapotherm HEENT: NC/AT CV: RRR, Normal S1 and S2. No murmurs, gallops, rubs appreciated Resp: CTA B/L, breathing comfortably on current settings of PEEP, no accessory muscle use. No significant labored breathing appreciated Extr: Trace lower extremity edema bilaterally, no cyanosis, clubbing or rashes appreciated Assessment and plan: This is a 74-year-old male with past medical history significant for CAD status post stent, atrial fibrillation, on anticoagulation, COPD, hypertension, NIDDM who presented to the emergency department the evening of 10/23/20 complaining of worsening shortness of breath. Patient reported that his symptoms began approximately 10/17/20, worsening following administration of the COVID-19 vaccination on 10/22/20. In the emergency department, patient was found to be hypoxic, requiring 2 L of oxygen via nasal cannula. Patient was admitted to the hospital service for acute hypoxic respiratory failure secondary to Covid pneumonia. #Hypoxic respiratory failure secondary to COVID 19 infection with superimposed pneumonia -Patient tested positive on 10/23/20 at urgent care -Patient continues to improve and able to be weaned slowly down on the FiO2 on vapotherm- currently on 50% FIO2 and satting above 90% -Continuous pulse ox, oxygen therapy, CPAP at night, contact and airborne precautions -respiratory treatment, incentive spirometry, acapella -Dexamethasone 6 mg IV and Remdesivir since 10/24/2020 (today is day 7) -C/w monitoring inflamm markers -Toclizumab administered on 10/26/2020 due to patient's increasing O2 requirement #Atrial fibrillation -rate controlled -Continue Eliquis for AC #History of CAD -Continue Statin #NIDDM -Continue to hold home metformin -Continue Diabetic diet, sliding scale, glucose checks AC&HS, and hypoglycemia protocol -A1C 6.9 #HTN -Patient has been on Lisinopril at home - held inpatient for now - bp 137/74 #HLD -continue with home dose statin #Obesity -Complicating care -Patient will discuss with PCP at follow-up appointments o discuss healthy lifestyle and diet modifications DVT prophylaxis: On Eliquis for afib GI ppx: Protonix Fluids: none Code Status: DNI, limited, patient would still like to receive chest compressions Disposition: Patient continues to improve and required less oxygen from day to day. Currently able to wean FiO2 from 60% to 50% without desaturations. Pending further clinical improvement. Continue to wean FiO2 Assessment /Plan Plan/VTE VTE Prophylaxis Ordered?: Yes VS, I&O, 24H, Fishbone Vital Signs/I&O Vital Signs Date Time Temp Pulse Resp B/P (MAP) Pulse Ox O2 Delivery O2 Flow Rate FiO2 10/30/20 09:00 30.0 50 10/30/20 08:30 19 10/30/20 08:30 92 HVNI-Vapotherm 10/30/20 08:00 96.3 79 123/69 (87) I&O- Last 24 Hours up to 6 AM 10/30/20 05:59 Intake Total 1580 ml Output Total 1880 ml Balance -300 ml Laboratory Data 24H LABS Laboratory Tests 2 10/29/20 11:47: Bedside Glucose (Misc Panel) 307H 10/29/20 16:55: Bedside Glucose (Misc Panel) 381H 10/29/20 21:13: Bedside Glucose (Misc Panel) 313H 10/30/20 05:51: Immature Granulocyte % (Auto) 1.3, Neutrophils (%) (Auto) 71.3H, Lymphocytes (%) (Auto) 20.4L, Monocytes (%) (Auto) 5.2, Eosinophils (%) (Auto) 1.1, Basophils (%) (Auto) 0.7, Neutrophils # (Auto) 9.6H, Lymphocytes # (Auto) 2.8, Monocytes # (Auto) 0.7, Eosinophils # (Auto) 0.2, Basophils # (Auto) 0.1, Nucleated Red Blood Cells % (auto) 0.0, Anion Gap 6L, Glomerular Filtration Rate > 60.0, Calcium Level 8.4L, Magnesium Level 2.1 CBC/BMP Laboratory Tests 10/30/20 05:51 Microbiology Microbiology 10/24/20 Blood Culture - Final, Complete NO GROWTH AFTER 5 DAYS 10/23/20 Blood Culture - Final, Complete NO GROWTH AFTER 5 DAYS GME ATTESTATION GME ATTESTATION My faculty preceptor for this patient encounter was physically present during the encounter and was fully available. All aspects of the patient interview, examination, medical decision making process, and medical care plan development were reviewed and approved by the faculty preceptor. The faculty preceptor is aware and concurs with the plan as stated in the body of this note and will attest to such by his/her cosignature. ATTENDING NOTE Attending Note: Patient seen and examined independently. Agree with resident's note and plan of care. Prosper Sterling DO Oct 30, 2020 11:08 JODY SANTIAGO MD Oct 30, 2020 18:38
[2020-10-30] MEDS: SIMVASTATIN 40 MG TAB PO SCH (20:33)
[2020-10-30] MEDS: LEVEMIR (INSULIN DETEMIR) 1 UNITS/0.01ML SC SCH (20:35)
[2020-10-30] MEDS: ACETAMINOPHEN TAB 650MG DOSE (2X325MG) PO PRN (20:35)
[2020-10-30] MEDS: REMDESIVIR 100 MG in NS 250 ML IV SCH (23:15)
[2020-10-30] MEDS: SODIUM CHLORIDE 0.9% INJ 10 ML SYR IV SCH (23:16)
[2020-10-31] VITALS (9 sets, daily range): BP systolic 120–139; BP diastolic 75–85; O2SAT 88–94
[2020-10-31] MEDS: COMBIVENT RESPIMAT 100-20MCG INHALER 4GM INH SCH ×4 (01:03→20:00)
[2020-10-31] MEDS: NICOTINE 21MG/24HR 1 EA TRANSDERMAL TD SCH (08:01)
[2020-10-31] MEDS: dexameTHASONE 4 MG/ML 1ML VIAL (J1100 PER 1MG) IV SCH (08:01)
[2020-10-31] MEDS: HumaLOG INSULIN (NovoLOG) PER UNIT SC SCH ×4 (08:02→20:38)
[2020-10-31] MEDS: LEVEMIR (INSULIN DETEMIR) 1 UNITS/0.01ML SC SCH ×2 (08:02→20:38)
[2020-10-31] MEDS: PANTOPRAZOLE 40MG TAB (PROTONIX) PO SCH (08:04)
[2020-10-31] MEDS: APIXABAN 5 MG TAB (ELIQUIS) PO SCH ×2 (08:04→20:38)
[2020-10-31 08:16] LABS: BASO # 0.1 10^3/uL (0.0-0.2); BASO % 0.4 % (0.0-1.0); EOS # 0.2 10^3/uL (0.0-0.5); HEMATOCRIT 45.2 % (42.0-52.0); HEMOGLOBIN 15.4 g/dl (13.5-17.5); LYMPH # 2.9 10^3/uL (1.5-5.0); LYMPH % 19.2 % (24.0-44.0); MEAN CORPUSCULAR HEMOGLOBIN 31.2 pg (27.0-33.0); MEAN CORPUSCULAR HGB CONC 34.1 g/dl (32.0-36.5); MEAN CORPUSCULAR VOLUME 91.7 fl (80.0-96.0); MONO # 0.9 10^3/uL (0.0-0.8); MONO % 5.9 % (2.0-8.0); NEUTROPHILS # 10.8 10^3/uL (1.5-8.5); NEUTROPHILS % 71.7 % (36.0-66.0); PLATELET COUNT, AUTOMATED 291 10^3/uL (150-450); RED BLOOD COUNT 4.93 10^6/uL (4.30-6.10)
[2020-10-31 08:30] LABS: D-DIMER QUANT 1152.29 ng/ml (<500)
[2020-10-31 08:43] LABS: ALBUMIN 3.2 GM/DL (3.2-5.2); ALT/SGPT 68 U/L (12-78); BILIRUBIN,TOTAL 0.6 MG/DL (0.2-1.0); BLOOD UREA NITROGEN 25 MG/DL (7-18); C REACTIVE PROTEIN QUANTITATIV 0.36 MG/DL (0.00-0.30); CARBON DIOXIDE LEVEL 28 MEQ/L (21-32); CHLORIDE LEVEL 103 MEQ/L (98-107); CREATININE FOR GFR 1.08 MG/DL (0.70-1.30); FERRITIN 458 NG/ML (26-388); GLOMERULAR FILTRATION RATE > 60.0 (>42); GLUCOSE, FASTING 227 MG/DL (70-100); POTASSIUM SERUM 4.2 MEQ/L (3.5-5.1); SODIUM LEVEL 137 MEQ/L (136-145); TOTAL PROTEIN 6.2 GM/DL (6.4-8.2)
--- NOTE | 2020-10-31 10:38 | IPNPDOC ---
Subjective Date Seen The patient was seen on 10/31/20. Subjective Chief Complaint/HPI Subjective: Patient seen at bedside this morning. Did not report any episodes of shortness of breath at night. Had no desaturations overnight on 30 L, 50% FiO2 overnight. This morning he was able to be weaned down to 20 L, 40% FiO2, satting greater than 90%. Patient continues to use his acappella device to break up the mucus/chest congestion. Patient also continues to be compliant with incentive spirometry. Objective: Vital signs: Please see below General: Obese male, not in acute distress, saturating greater than 90% on 20 L, 40 % FiO2 of Vapotherm HEENT: NC/AT CV: RRR, Normal S1 and S2. No murmurs, gallops, rubs appreciated Resp: decreased breath sounds in lung bases, no crackles appreciated, no wheezing Extr: Trace lower extremity edema bilaterally, no cyanosis, clubbing or rashes appreciated Assessment and plan: This is a 74-year-old male with past medical history significant for CAD status post stent, atrial fibrillation, on anticoagulation, COPD, hypertension, NIDDM who presented to the emergency department the evening of 10/23/20 complaining of worsening shortness of breath. Patient reported that his symptoms began a pproximately 10/17/20, worsening following administration of the COVID-19 vaccination on 10/22/20. In the emergency department, patient was found to be hypoxic, requiring 2 L of oxygen via nasal cannula. Patient was admitted to the hospital service for acute hypoxic respiratory failure secondary to Covid pneumonia. #Hypoxic respiratory failure secondary to COVID 19 infection with superimposed pneumonia -Patient tested positive on 10/23/20 at urgent care -Patient continues to improve oxygenation. Currently on 20 L, 40% FiO2, satting greater than 90% -Continuous pulse ox, oxygen therapy, CPAP at night, contact and airborne precautions -respiratory treatment, incentive spirometry, acapella -Dexamethasone 6 mg IV and Remdesivir since 10/24/2020 (today is day 8) -C/w monitoring inflamm markers -Toclizumab administered on 10/26/2020 due to patient's increasing O2 requirement #Atrial fibrillation -rate controlled -Continue Eliquis for AC #History of CAD -Continue Statin #NIDDM - Continue to hold home metformin - A1C 6.9 - Blood sugar running high to 27. This morning, changed Levemir to 20 units daily at bedtime - We'll continue to monitor blood sugars closely with glucose checks before meals and daily at bedtime plus hypoglycemic protocol - Continue with consistent carb diet #HTN -Patient has been on Lisinopril at home - held inpatient for now - bp 139/85 #HLD -continue with home dose statin #Obesity -Complicating care -Patient will discuss with PCP at follow-up appointments o discuss healthy lifestyle and diet modifications DVT prophylaxis: On Eliquis for afib GI ppx: Protonix Fluids: none Code Status: DNI, limited, patient would still like to receive chest compression s Disposition: Pending clinical improvement. Continues to wean down FiO2. Assessment /Plan Plan/VTE VTE Prophylaxis Ordered?: Yes VS, I&O, 24H, Fishbone Vital Signs/I&O Vital Signs Date Time Temp Pulse Resp B/P (MAP) Pulse Ox O2 Delivery O2 Flow Rate FiO2 10/31/20 08:10 89 HVNI-Vapotherm 20.0 40 10/31/20 08:00 97.6 61 18 134/78 (96) I&O- Last 24 Hours up to 6 AM 10/31/20 06:00 Intake Total 1750 ml Output Total 1175 ml Balance 575 ml Laboratory Data 24H LABS Laboratory Tests 2 10/30/20 11:33: Bedside Glucose (Misc Panel) 295H 10/30/20 17:25: Bedside Glucose (Misc Panel) 436H 10/30/20 20:29: Bedside Glucose (Misc Panel) 387H 10/31/20 05:52: Bedside Glucose (Misc Panel) 269H 10/31/20 07:40: Immature Granulocyte % (Auto) 1.8, Neutrophils (%) (Auto) 71.7H, Lymphocytes (%) (Auto) 19.2L, Monocytes (%) (Auto) 5.9, Eosinophils (%) (Auto) 1.0, Basophils (%) (Auto) 0.4, Neutrophils # (Auto) 10.8H, Lymphocytes # (Auto) 2.9, Monocytes # (Auto) 0.9H, Eosinophils # (Auto) 0.2, Basophils # (Auto) 0.1, Nucleated Red Blood Cells % (auto) 0.0, Fibrinogen 275, D-Dimer, Quantitative 1152.29H CBC/BMP Laboratory Tests 10/31/20 07:40 Microbiology Microbiology 10/24/20 Blood Culture - Final, Complete NO GROWTH AFTER 5 DAYS 10/23/20 Blood Culture - Final, Complete NO GROWTH AFTER 5 DAYS GME ATTESTATION GME ATTESTATION My faculty preceptor for this patient encounter was physically present during the encounter and was fully available. All aspects of the patient interview, examination, medical decision making process, and medical care plan development were reviewed and approved by the faculty preceptor. The faculty preceptor is aware and concurs with the plan as stated in the body of this note and will attest to such by his/her cosignature. ATTENDING NOTE I, Raji Berman, have independently examined this patient and performed my own physical exam, as well as reviewed the documentation and edited where necessary. I have discussed in detail with the resident / student the findings and plan of treatment as documented by the resident / student and edited their note. I agree with their findings and treatment plan and have edited their documentation. I will continue to follow the patient during this hospital stay. Prosper Sterling DO Oct 31, 2020 08:37 RAJI BERMAN MD Oct 31, 2020 11:03
[2020-10-31] MEDS: SIMVASTATIN 40 MG TAB PO SCH (20:38)
[2020-10-31] MEDS: REMDESIVIR 100 MG in NS 250 ML IV SCH (22:03)
[2020-10-31] MEDS: SODIUM CHLORIDE 0.9% INJ 10 ML SYR IV SCH (22:04)
[2020-11-01] VITALS (8 sets, daily range): BP systolic 113–126; BP diastolic 63–78; O2SAT 89–94
[2020-11-01] MEDS: COMBIVENT RESPIMAT 100-20MCG INHALER 4GM INH SCH ×4 (01:24→20:19)
[2020-11-01 06:04] LABS: BASO # 0.1 10^3/uL (0.0-0.2); BASO % 0.5 % (0.0-1.0); EOS # 0.2 10^3/uL (0.0-0.5); EOS % 1.2 % (0.0-3.0); HEMATOCRIT 46.2 % (42.0-52.0); HEMOGLOBIN 15.3 g/dl (13.5-17.5); LYMPH # 3.1 10^3/uL (1.5-5.0); LYMPH % 21.3 % (24.0-44.0); MEAN CORPUSCULAR HEMOGLOBIN 30.4 pg (27.0-33.0); MEAN CORPUSCULAR HGB CONC 33.1 g/dl (32.0-36.5); MEAN CORPUSCULAR VOLUME 91.8 fl (80.0-96.0); MONO # 0.9 10^3/uL (0.0-0.8); MONO % 5.9 % (2.0-8.0); NEUTROPHILS # 10.2 10^3/uL (1.5-8.5); NEUTROPHILS % 69.5 % (36.0-66.0); PLATELET COUNT, AUTOMATED 273 10^3/uL (150-450); RED BLOOD COUNT 5.03 10^6/uL (4.30-6.10); WHITE BLOOD COUNT 14.7 10^3/uL (4.0-10.0)
[2020-11-01 06:16] LABS: D-DIMER QUANT 910.54 ng/ml (<500)
[2020-11-01 06:36] LABS: ALBUMIN 3.1 GM/DL (3.2-5.2); ALT/SGPT 60 U/L (12-78); BILIRUBIN,TOTAL 0.6 MG/DL (0.2-1.0); BLOOD UREA NITROGEN 25 MG/DL (7-18); CARBON DIOXIDE LEVEL 27 MEQ/L (21-32); CHLORIDE LEVEL 104 MEQ/L (98-107); CREATININE FOR GFR 1.03 MG/DL (0.70-1.30); FERRITIN 386 NG/ML (26-388); GLOMERULAR FILTRATION RATE > 60.0 (>42); GLUCOSE, FASTING 121 MG/DL (70-100); SODIUM LEVEL 136 MEQ/L (136-145); TOTAL PROTEIN 5.9 GM/DL (6.4-8.2)
[2020-11-01] MEDS ORDERED: SLF 3 ML SYR IV PRN (07:15)
[2020-11-01] MEDS: HumaLOG INSULIN (NovoLOG) PER UNIT SC SCH ×4 (08:23→20:19)
[2020-11-01] MEDS: dexameTHASONE 4 MG/ML 1ML VIAL (J1100 PER 1MG) IV SCH (08:24)
[2020-11-01] MEDS: NICOTINE 21MG/24HR 1 EA TRANSDERMAL TD SCH (08:24)
[2020-11-01] MEDS: APIXABAN 5 MG TAB (ELIQUIS) PO SCH ×2 (08:24→20:17)
[2020-11-01] MEDS: PANTOPRAZOLE 40MG TAB (PROTONIX) PO SCH (08:24)
--- NOTE | 2020-11-01 09:34 | IPNPDOC ---
Subjective Date Seen The patient was seen on 11/01/20. Subjective Chief Complaint/HPI Subjective: Patient seen at bedside this morning. Did not report any episodes of shortness of breath at night. Had no desaturations overnight and was able to be weaned to nasal cannula 5 L. This morning he was able to be weaned down to 4 L NC satting about 90%. Patient will likely be discharged tomorrow if he can tolerate ambulation on 2-3 L of nasal cannula without desaturation below 90%. Objective: Vital signs: Please see below General: Obese male, not in acute distress, saturating greater than 90% on 4L NC, but desats with ambulation HEENT: NC/AT CV: RRR, Normal S1 and S2. No murmurs, gallops, rubs appreciated Resp: decreased breath sounds in lung bases, no crackles appreciated, no wheezing Extr: Trace lower extremity edema bilaterally, no cyanosis, clubbing or rashes appreciated Assessment and plan: This is a 74-year-old male with past medical history significant for CAD status post stent, atrial fibrillation, on anticoagulation, COPD, hypertension, NIDDM who presented to the emergency department the evening of 10/23/20 complaining of worsening shortness of breath. Patient reported that his symptoms began approximately 10/17/20, worsening following administration of the COVID-19 vaccination on 10/22/20. In the emergency department, patient was found to be hypoxic, requiring 2 L of oxygen via nasal cannula. Patient was admitted to the hospital service for acute hypoxic respiratory failure secondary to Covid pneumonia. #Hypoxic respiratory failure secondary to COVID-19 infection with superimposed pneumonia -Patient tested positive on 10/23/20 at urgent care -Patient continues to improve oxygenation. Currently on 4L NC satting greater than 90%, but does desat when he ambulates -Continuous pulse ox, oxygen therapy, CPAP at night, contact and airborne precautions -respiratory treatment, incentive spirometry, acapella -Dexamethasone 6 mg IV and Remdesivir since 10/24/2020 (today is day 9) -Inflammatory markers improving -Toclizumab administered on 10/26/2020 due to patient's increasing O2 requirement #Atrial fibrillation -rate controlled -Continue Eliquis for AC #History of CAD -Continue Statin #NIDDM - Continue to hold home metformin - A1C 6.9 - Blood sugar running high to 27. This morning, changed Levemir to 20 units daily at bedtime - We'll continue to monitor blood sugars closely with glucose checks before meals and daily at bedtime plus hypoglycemic protocol - Continue with consistent carb diet #HTN -Patient has been on Lisinopril at home - held inpatient for now #HLD -continue with home dose statin #Obesity -Complicating care -Patient will discuss with PCP at follow-up appointments o discuss healthy lifestyle and diet modifications DVT prophylaxis: On Eliquis for afib GI ppx: Protonix Fluids: none Code Status: DNI, limited, patient would still like to receive chest compressions Disposition: Continue to wean O2%. He's currently on NC 4L. Likely dc tomorrow if he can tolerated 2-3L NC without desatting below 90%. Assessment /Plan Plan/VTE VTE Prophylaxis Ordered?: Yes VS, I&O, 24H, Fishbone Vital Signs/I&O Vital Signs Date Time Temp Pulse Resp B/P (MAP) Pulse Ox O2 Delivery O2 Flow Rate FiO2 11/01/20 05:06 97.1 64 18 126/78 (94) 90 High Flow Cannula 4.0 10/31/20 16:30 40 I&O- Last 24 Hours up to 6 AM 11/01/20 06:00 Intake Total 1510 ml Output Total 1625 ml Balance -115 ml Laboratory Data 24H LABS Laboratory Tests 2 10/31/20 12:28: Bedside Glucose (Misc Panel) 347H 10/31/20 16:38: Bedside Glucose (Misc Panel) 280H 10/31/20 19:54: Bedside Glucose (Misc Panel) 326H 11/01/20 05:36: Immature Granulocyte % (Auto) 1.6, Neutrophils (%) (Auto) 69.5H, Lymphocytes (%) (Auto) 21.3L, Monocytes (%) (Auto) 5.9, Eosinophils (%) (Auto) 1.2, Basophils (%) (Auto) 0.5, Neutrophils # (Auto) 10.2H, Lymphocytes # (Auto) 3.1, Monocytes # (Auto) 0.9H, Eosinophils # (Auto) 0.2, Basophils # (Auto) 0.1, Nucleated Red Blood Cells % (auto) 0.0, Fibrinogen 271, D-Dimer, Quantitative 910.54H, Anion Gap 5L, Glomerular Filtration Rate > 60.0, Calcium Level 8.0L, Ferritin 386, Total Bilirubin 0.6, Aspartate Amino Transf (AST/SGOT) 18, Alanine Aminotransferase (ALT/SGPT) 60, Alkaline Phosphatase 69, C-Reactive Protein, Quantitative 0.30, Total Protein 5.9L, Albumin 3.1L, Albumin/Globulin Ratio 1.1 CBC/BMP Laboratory Tests 11/01/20 05:36 Microbiology Microbiology 10/24/20 Blood Culture - Final, Complete NO GROWTH AFTER 5 DAYS 10/23/20 Blood Culture - Final, Complete NO GROWTH AFTER 5 DAYS GME ATTESTATION GME ATTESTATION My faculty preceptor for this patient encounter was physically present during the encounter and was fully available. All aspects of the patient interview, examination, medical decision making process, and medical care plan development were reviewed and approved by the faculty preceptor. The faculty preceptor is aware and concurs with the plan as stated in the body of this note and will attest to such by his/her cosignature. ATTENDING NOTE I, Raji Berman, have independently examined this patient and performed my own physical exam, as well as reviewed the documentation and edited where necessary. I have discussed in detail with the resident / student the findings and plan of treatment as documented by the resident / student and edited their note. I agree with their findings and treatment plan and have edited their documentation. I will continue to follow the patient during this hospital stay. Prosper Sterling DO Nov 01, 2020 09:25 RAJI BERMAN MD Nov 01, 2020 10:21
[2020-11-01] MEDS: SLF 3 ML SYR IV SCH ×2 (17:19→22:39)
[2020-11-01] MEDS: SIMVASTATIN 40 MG TAB PO SCH (20:17)
[2020-11-01] MEDS: LEVEMIR (INSULIN DETEMIR) 1 UNITS/0.01ML SC SCH (20:17)
[2020-11-01] MEDS: REMDESIVIR 100 MG in NS 250 ML IV SCH (22:39)
[2020-11-01] MEDS: SODIUM CHLORIDE 0.9% INJ 10 ML SYR IV SCH (23:41)
[2020-11-02] VITALS (9 sets, daily range): BP systolic 121–137; BP diastolic 68–77; O2SAT 88–95
[2020-11-02] MEDS: COMBIVENT RESPIMAT 100-20MCG INHALER 4GM INH SCH ×4 (02:19→20:10)
[2020-11-02 05:51] LABS: BASO # 0.1 10^3/uL (0.0-0.2); BASO % 0.5 % (0.0-1.0); EOS # 0.1 10^3/uL (0.0-0.5); EOS % 0.9 % (0.0-3.0); HEMATOCRIT 45.2 % (42.0-52.0); HEMOGLOBIN 15.5 g/dl (13.5-17.5); LYMPH # 2.8 10^3/uL (1.5-5.0); MEAN CORPUSCULAR HEMOGLOBIN 31.8 pg (27.0-33.0); MEAN CORPUSCULAR HGB CONC 34.3 g/dl (32.0-36.5); MEAN CORPUSCULAR VOLUME 92.6 fl (80.0-96.0); MONO # 0.8 10^3/uL (0.0-0.8); MONO % 5.5 % (2.0-8.0); NEUTROPHILS # 10.7 10^3/uL (1.5-8.5); NEUTROPHILS % 72.3 % (36.0-66.0); PLATELET COUNT, AUTOMATED 243 10^3/uL (150-450); RED BLOOD COUNT 4.88 10^6/uL (4.30-6.10); WHITE BLOOD COUNT 14.8 10^3/uL (4.0-10.0)
[2020-11-02] MEDS: SLF 3 ML SYR IV SCH ×3 (06:04→23:34)
[2020-11-02 06:05] LABS: D-DIMER QUANT 946.94 ng/ml (<500)
[2020-11-02 06:16] LABS: ALBUMIN 3.1 GM/DL (3.2-5.2); ALT/SGPT 56 U/L (12-78); BILIRUBIN,TOTAL 0.5 MG/DL (0.2-1.0); BLOOD UREA NITROGEN 26 MG/DL (7-18); CALCIUM LEVEL 8.2 MG/DL (8.8-10.2); CARBON DIOXIDE LEVEL 28 MEQ/L (21-32); CHLORIDE LEVEL 104 MEQ/L (98-107); CREATININE FOR GFR 1.01 MG/DL (0.70-1.30); FERRITIN 341 NG/ML (26-388); GLOMERULAR FILTRATION RATE > 60.0 (>42); GLUCOSE, FASTING 168 MG/DL (70-100); POTASSIUM SERUM 4.2 MEQ/L (3.5-5.1); SODIUM LEVEL 138 MEQ/L (136-145); TOTAL PROTEIN 5.8 GM/DL (6.4-8.2)
[2020-11-02] MEDS: HumaLOG INSULIN (NovoLOG) PER UNIT SC SCH ×4 (07:50→20:07)
[2020-11-02] MEDS: PANTOPRAZOLE 40MG TAB (PROTONIX) PO SCH (07:50)
[2020-11-02] MEDS: NICOTINE 21MG/24HR 1 EA TRANSDERMAL TD SCH (07:50)
[2020-11-02] MEDS: dexameTHASONE 4 MG/ML 1ML VIAL (J1100 PER 1MG) IV SCH (07:50)
[2020-11-02] MEDS: APIXABAN 5 MG TAB (ELIQUIS) PO SCH ×2 (07:50→20:05)
--- NOTE | 2020-11-02 09:50 | IPNPDOC ---
Subjective Date Seen The patient was seen on 11/02/20. Subjective Chief Complaint/HPI Subjective: No acute events overnight reported by the patient or nursing staff. Patient states that he hadn't really get night last night, maintaining sats above 92% to 95% on 5 L oxygen. Patient continues to work with PT, OT, but desats to below 80% with ambulation yesterday. He denies any shortness of breath, chest pain, abdominal discomfort, nausea, vomiting, diarrhea Objective: Vital signs: Please see below General: Obese male, not in acute distress, saturating greater than 88% on 5L NC HEENT: NC/AT CV: RRR, Normal S1 and S2. No murmurs, gallops, rubs appreciated Resp: decreased breath sounds in lung bases, no crackles appreciated, no wheezing Extr: Trace lower extremity edema bilaterally, no cyanosis, clubbing or rashes appreciated Assessment and plan: This is a 74-year-old male with past medical history significant for CAD status post stent, atrial fibrillation, on anticoagulation, COPD, hypertension, NIDDM who presented to the emergency department the evening of 10/23/20 complaining of worsening shortness of breath. Patient reported that his symptoms began approximately 10/17/20, worsening following administration of the COVID-19 vaccination on 10/22/20. In the emergency department, patient was found to be hypoxic, requiring 2 L of oxygen via nasal cannula. Patient was admitted to the hospital service for acute hypoxic respiratory failure secondary to Covid pneumonia. #Hypoxic respiratory failure secondary to COVID-19 infection with superimposed pneumonia -Patient tested positive on 10/23/20 at urgent care -Patient desatted to 79% with ambulation while working with PT, OT yesterday -Currently satting at 88% on 5 L oxygen at rest; will attempt to get ambulate with oxygen and determine requirement -Continuous pulse ox, oxygen therapy, CPAP at night, contact and airborne precautions -respiratory treatment, incentive spirometry, acapella -Dexamethasone 6 mg IV and Remdesivir since 10/24/2020 (today is day 10) -Inflammatory markers improving -Toclizumab administered on 10/26/2020 due to patient's increasing O2 requirement #Atrial fibrillation -rate controlled -Continue Eliquis for AC #History of CAD -Continue Statin #NIDDM - Continue to hold home metformin - A1C 6.9 - Blood sugar running high to 27. This morning, changed Levemir to 20 units daily at bedtime - We'll continue to monitor blood sugars closely with glucose checks before meals and daily at bedtime plus hypoglycemic protocol - Continue with consistent carb diet #HTN -Patient has been on Lisinopril at home - held inpatient for now #HLD -continue with home dose statin #Obesity -Complicating care -Patient will discuss with PCP at follow-up appointments o discuss healthy lifestyle and diet modifications DVT prophylaxis: On Eliquis for afib GI ppx: Protonix Fluids: none Code Status: DNI, limited, patient would still like to receive chest compressions Disposition: - Continue to wean O2%. He's currently on NC 5L satting 88%. continue PT/OT - Patient is adamant that he is leaving tomorrow regardless of medical clearance Assessment /Plan Plan/VTE VTE Prophylaxis Ordered?: Yes VS, I&O, 24H, Fishbone Vital Signs/I&O Vital Signs Date Time Temp Pulse Resp B/P (MAP) Pulse Ox O2 Delivery O2 Flow Rate FiO2 11/02/20 04:04 96.9 62 18 137/74 (95) 95 High Flow Cannula 5.0 10/31/20 16:30 40 I&O- Last 24 Hours up to 6 AM 11/02/20 06:00 Intake Total 2010 ml Output Total 1750 ml Balance 260 ml Laboratory Data 24H LABS Laboratory Tests 2 11/01/20 11:27: Bedside Glucose (Misc Panel) 343H 11/01/20 16:51: Bedside Glucose (Misc Panel) 286H 11/01/20 20:15: Bedside Glucose (Misc Panel) 389H 11/02/20 05:30: Immature Granulocyte % (Auto) 1.8, Neutrophils (%) (Auto) 72.3H, Lymphocytes (%) (Auto) 19.0L, Monocytes (%) (Auto) 5.5, Eosinophils (%) (Auto) 0.9, Basophils (%) (Auto) 0.5, Neutrophils # (Auto) 10.7H, Lymphocytes # (Auto) 2.8, Monocytes # (Auto) 0.8, Eosinophils # (Auto) 0.1, Basophils # (Auto) 0.1, Nucleated Red Blood Cells % (auto) 0.0, Fibrinogen 273, D-Dimer, Quantitative 946.94H, Anion Gap 6L, Glomerular Filtration Rate > 60.0, Calcium Level 8.2L, Ferritin 341, Total Bilirubin 0.5, Aspartate Amino Transf (AST/SGOT) 17, Alanine Aminotransfe rase (ALT/SGPT) 56, Alkaline Phosphatase 65, C-Reactive Protein, Quantitative 0.30, Total Protein 5.8L, Albumin 3.1L, Albumin/Globulin Ratio 1.1 CBC/BMP Laboratory Tests 11/02/20 05:30 Microbiology Microbiology 10/24/20 Blood Culture - Final, Complete NO GROWTH AFTER 5 DAYS 10/23/20 Blood Culture - Final, Complete NO GROWTH AFTER 5 DAYS GME ATTESTATION GME ATTESTATION My faculty preceptor for this patient encounter was physically present during the encounter and was fully available. All aspects of the patient interview, examination, medical decision making process, and medical care plan development were reviewed and approved by the faculty preceptor. The faculty preceptor is aware and concurs with the plan as stated in the body of this note and will attest to such by his/her cosignature. ATTENDING NOTE I, Raji Berman, have independently examined this patient and performed my own physical exam, as well as reviewed the documentation and edited where necessary. I have discussed in detail with the resident / student the findings and plan of treatment as documented by the resident / student and edited their note. I agree with their findings and treatment plan and have edited their documentation. I will continue to follow the patient during this hospital stay. Prosper Sterling DO Nov 02, 2020 08:13 RAJI BERMAN MD Nov 02, 2020 11:34
[2020-11-02] MEDS: SIMVASTATIN 40 MG TAB PO SCH (20:05)
[2020-11-02] MEDS: LEVEMIR (INSULIN DETEMIR) 1 UNITS/0.01ML SC SCH (20:06)
[2020-11-03] MEDS: COMBIVENT RESPIMAT 100-20MCG INHALER 4GM INH SCH ×2 (01:00→07:04)
[2020-11-03] MEDS: SLF 3 ML SYR IV SCH (04:15)
[2020-11-03 04:16] VITALS: BP 149/88
[2020-11-03 06:41] LABS: BASO # 0.1 10^3/uL (0.0-0.2); BASO % 0.5 % (0.0-1.0); EOS # 0.1 10^3/uL (0.0-0.5); EOS % 0.9 % (0.0-3.0); HEMATOCRIT 48.8 % (42.0-52.0); HEMOGLOBIN 16.6 g/dl (13.5-17.5); LYMPH # 2.9 10^3/uL (1.5-5.0); LYMPH % 19.3 % (24.0-44.0); MEAN CORPUSCULAR HEMOGLOBIN 31.7 pg (27.0-33.0); MEAN CORPUSCULAR VOLUME 93.3 fl (80.0-96.0); MONO # 0.8 10^3/uL (0.0-0.8); MONO % 5.1 % (2.0-8.0); NEUTROPHILS % 72.7 % (36.0-66.0); PLATELET COUNT, AUTOMATED 227 10^3/uL (150-450); RED BLOOD COUNT 5.23 10^6/uL (4.30-6.10); WHITE BLOOD COUNT 15.2 10^3/uL (4.0-10.0)
[2020-11-03 06:53] LABS: D-DIMER QUANT 962.16 ng/ml (<500)
[2020-11-03 07:07] LABS: ALBUMIN 3.3 GM/DL (3.2-5.2); ALT/SGPT 57 U/L (12-78); BILIRUBIN,TOTAL 0.7 MG/DL (0.2-1.0); BLOOD UREA NITROGEN 27 MG/DL (7-18); CALCIUM LEVEL 8.1 MG/DL (8.8-10.2); CARBON DIOXIDE LEVEL 30 MEQ/L (21-32); CHLORIDE LEVEL 102 MEQ/L (98-107); CREATININE FOR GFR 1.16 MG/DL (0.70-1.30); FERRITIN 353 NG/ML (26-388); GLOMERULAR FILTRATION RATE > 60.0 (>42); GLUCOSE, FASTING 250 MG/DL (70-100); POTASSIUM SERUM 4.3 MEQ/L (3.5-5.1); SODIUM LEVEL 136 MEQ/L (136-145); TOTAL PROTEIN 6.1 GM/DL (6.4-8.2)
[2020-11-03] MEDS: HumaLOG INSULIN (NovoLOG) PER UNIT SC SCH ×2 (07:35→12:13)
[2020-11-03 08:00] VITALS: O2SAT 92
[2020-11-03] MEDS: APIXABAN 5 MG TAB (ELIQUIS) PO SCH (08:16)
[2020-11-03] MEDS: NICOTINE 21MG/24HR 1 EA TRANSDERMAL TD SCH (08:16)
[2020-11-03] MEDS: PANTOPRAZOLE 40MG TAB (PROTONIX) PO SCH (08:16)
[2020-11-03] MEDS ORDERED: PRED10TA2 PO (10:15)
--- NOTE | 2020-11-03 10:27 | DS.PDOC ---
Discharge Summary General Date of Admission Oct 23, 2020 at 21:38 Date of Discharge 11/03/20 Discharge Summary PROCEDURES PERFORMED DURING STAY: [None]. ADMITTING DIAGNOSES / DISCHARGE DIAGNOSES: Acute hypoxic respiratory failure - likely 2/2 Viral pneumonia 2/2 COVID19 Virus Atrial fibrillation, on Eliquis COPD Hypertension NIDDM ROBERTH DLP DVT prophylaxis CHIEF COMPLAINT: Shortness of breath HISTORY OF PRESENT ILLNESS: Patient is a 74-year-old male, CAD status post stent, atrial fibrillation, on anticoagulation, COPD, hypertension, NIDDM, who presented to the emergency department the evening of 10/23/20 complaining of worsening shortness of breath. Patient reported that his SOB began approximately 10/17/20, worsening following administration of the COVID-19 vaccination on 10/22/20. Reporting a 1 day history of worsening SOB, RODRÍGUEZ, subjective fever and rigors. Out of concern, patient presented to earlier today. A COVID-19 test was performed and patient was determined to be POS. Per report, patient was also hypoxemic with an SPO2 at 88%. Given this, he was transported to the ED for further evaluation. He did receive IV decadron en route. HOSPITAL COURSE: This is a 74-year-old male with past medical history significant for CAD status post stent, atrial fibrillation, on anticoagulation, COPD, hypertension, NIDDM who presented to the emergency department the evening of 10/23/20 complaining of worsening shortness of breath. Patient reported that his symptoms began approximately 10/17/20, worsening following administration of the COVID-19 vaccination on 10/22/20. In the emergency department, patient was found to be hypoxic, requiring 2 L of oxygen via nasal cannula. Patient was admitted to the hospital service for acute hypoxic respiratory failure secondary to Covid pneumonia. Pt was able to be weaned down from vapotherm to highflow 4L NC without desaturations. He will be discharged home with home services and oxygen. He was informed to be compliant with the prednisone taper and to follow up with PCP within 2 weeks of hospital discharge. He was also instructed that if his condition worsens to report back to ER. #Hypoxic respiratory failure secondary to COVID-19 infection with superimposed pneumonia -Patient tested positive on 10/23/20 at urgent care -Patient desatted to 79% with ambulation while working with PT, OT yesterday -Currently satting at 88% on 5 L oxygen at rest; will attempt to get ambulate with oxygen and determine requirement -Continuous pulse ox, oxygen therapy, CPAP at night, contact and airborne precautions -Toclizumab administered on 10/26/2020 due to patient's increasing O2 requirement -respiratory treatment, incentive spirometry, acapella -Dexamethasone 6 mg IV and Remdesivir since 10/24/2020 - completed 10 day course -Inflammatory markers improving -Will d/c home with O2. #Atrial fibrillation -rate controlled -Continue Eliquis for AC #History of CAD -Continue Statin #NIDDM - C/w with home metformin - A1C 6.9 - b.s spikes likely 2/2 to steroids - given basal bolus coverage inpatient - need to f.u with pcp to repeat labs within 2 weeks and address accordingly outpt - Continue with consistent carb diet #HTN - c/w w home med lisinopril #HLD -continue with home dose statin #Obesity -Complicating care -Patient will discuss with PCP at follow-up appointments o discuss healthy lifestyle and diet modifications #Tobacco use disorder - pt requested nicotine patch on discharge - given 30 day supply - f/u with PCP to discuss further about quitting smoking DVT prophylaxis: On Eliquis for afib GI ppx: Protonix DISCHARGE MEDICATIONS: Please see below. ALLERGIES: Please see below. PHYSICAL EXAMINATION ON DISCHARGE: VITAL SIGNS: Please see below GENERAL APPEARANCE: NAD, no accessory muscle use, speaking in full sentences without desaturations or sob HEENT: Normocephalic, atraumatic, EOMI, sclera nonicteric CARDIOVASCULAR: Rate and rhythm without murmur, examination limited secondary to disposable stethoscope LUNGS: could not appreciate any wheezing, examination limited secondary to disposable stethoscope ABDOMEN: Half, nontender, nondistended, +BS throughout EXTREMITIES: No lower extremity swelling, no calf tenderness bilaterally, able to move extremities equally NEUROLOGICAL: Alert and oriented 3,no focal neuro deficits PSYCHIATRIC: Affect are appropriate given patient's current clinical condition LABORATORY DATA: Please see below. IMAGING: X-ray chest 10/23/20 IMPRESSION: Increased markings demonstrated bilaterally predominantly peripherally in the mid and lower lung zones. Although the changes may be chronic the possibility of a acute to subacute pneumonitis not excluded. X-ray chest 10/25 Increased bilateral multifocal infiltrates (right greater than left). Xray chest 3/4 Diffuse bilateral airspace disease (right greater than left) relatively similar to prior examination. PROGNOSIS: fair ACTIVITY: [As tolerated]. DIET: consistent carb and 2g Na DISCHARGE PLAN: prednisone taper and f/u with pcp w.i 2 weeks DISPOSITION: Home with services DISCHARGE INSTRUCTIONS: please be complaint with medication: prednisone taper please f/u with pcp within 2 weeks of discharge Return to the ER if you experience any problems TIME SPENT ON DISCHARGE: Greater than 30 minutes. Vital Signs/I&Os Vital Signs Date Time Temp Pulse Resp B/P (MAP) Pulse Ox O2 Delivery O2 Flow Rate FiO2 11/03/20 08:00 92 Nasal Cannula 4.0 11/03/20 04:16 96.4 60 18 149/88 (108) 10/31/20 16:30 40 I&O- Last 24 Hours up to 6 AM 11/03/20 06:00 Intake Total 1800 ml Output Total 1550 ml Balance 250 ml Laboratory Data Labs 24H Laboratory Tests 2 11/02/20 11:40: Bedside Glucose (Misc Panel) 294H 11/02/20 16:32: Bedside Glucose (Misc Panel) 314H 11/02/20 20:01: Bedside Glucose (Misc Panel) 275H 11/03/20 06:25: Immature Granulocyte % (Auto) 1.5, Neutrophils (%) (Auto) 72.7H, Lymphocytes (%) (Auto) 19.3L, Monocytes (%) (Auto) 5.1, Eosinophils (%) (Auto) 0.9, Basophils (%) (Auto) 0.5, Neutrophils # (Auto) 11.0H, Lymphocytes # (Auto) 2.9, Monocytes # (Auto) 0.8, Eosinophils # (Auto) 0.1, Basophils # (Auto) 0.1, Nucleated Red Blood Cells % (auto) 0.0, Fibrinogen 252, D-Dimer, Quantitative 962.16H, Anion Gap 4L, Glomerular Filtration Rate > 60.0, Calcium Level 8.1L, Ferritin 353, Total Bilirubin 0.7, Aspartate Amino Transf (AST/SGOT) 15, Alanine Aminotransferase (ALT/SGPT) 57, Alkaline Phosphatase 80, C-Reactive Protein, Quantitative 0.30, Total Protein 6.1L, Albumin 3.3, Albumin/Globulin Ratio 1.2 CBC/BMP Laboratory Tests 11/03/20 06:25 FSBS Laboratory Tests Test 11/02/20 11:40 11/02/20 16:32 11/02/20 20:01 Range/Units Bedside Glucose (Misc Panel) 294 314 275 83-110 MG/DL Microbiology Microbiology 10/24/20 Blood Culture - Final, Complete NO GROWTH AFTER 5 DAYS Discharge Medications Scheduled Apixaban (Eliquis) 5 Mg Tablet, 5 MG PO BID, (Reported) Lisinopril (Lisinopril) 10 Mg Tablet, 10 MG PO DAILY, (Reported) Metformin HCl (Metformin HCl) 1,000 Mg Tablet, 1,000 MG PO BID, (Reported) Nicotine (Nicotine Patch) 21 Mg Patch.td24, 1 PATCH TD DAILY Prednisone (Prednisone) 10 Mg Tablet, 10 MG PO TAPER Take 4 tabs daily x 3 days, then 3 tabs daily x 3 days, then 2 tabs daily x 3 days, then 1 tab daily x 3 days and stop Simvastatin (Simvastatin) 40 Mg Tablet, 40 MG PO QHS, (Reported) Scheduled PRN [Dayquil] , 2 TABS PO BID PRN for COUGH/ COLD SYMPTOMS, (Reported) PHENYLEPHRINE 5MG/ DEXTROMETHORPHAN 10MG/ ACETAMINOPHEN 325MG IN 1 TAB Allergies Coded Allergies: No Known Allergies (Unverified , 10/23/20) GME ATTESTATION GME ATTESTATION My faculty preceptor for this patient encounter was physically present during the encounter and was fully available. All aspects of the patient interview, examination, medical decision making process, and medical care plan development were reviewed and approved by the faculty preceptor. The faculty preceptor is aware and concurs with the plan as stated in the body of this note and will attest to such by his/her cosignature. ATTENDING NOTE I, Raji Berman, have independently examined this patient and performed my own physical exam, as well as reviewed the documentation and edited where necessary. I have discussed in detail with the resident / student the findings and plan of treatment as documented by the resident / student and edited their note. I agree with their findings and treatment plan and have edited their documentation. I will continue to follow the patient during this hospital stay. Time spent on discharge 35 minutes Prosper Sterling DO Nov 03, 2020 10:26 RAJI BERMAN MD Nov 03, 2020 13:40
[2020-11-03] MEDS ORDERED: NICO21PAT TD (10:32)
== END 2020-11-03 13:26 | disposition home health service (06) | DRG 177 ==
LOC: M ED 18:00 → M ED INP 21:38 → M 4MAIN 10-24 00:07
PROVIDERS: ADMIT Internal Medicine; ATTEND Internal Medicine
PROC: XW033E5 Introduction of Remdesivir Anti-infective into Peripheral Vein, Percutaneous Approach, New Technology Group 5 (ICD-10-PCS; principal; 2020-10-23)
PROC: 3E0333Z Introduction of Anti-inflammatory into Peripheral Vein, Percutaneous Approach (ICD-10-PCS; 2020-10-23)
DX: U07.1 COVID-19 (principal); J12.82 Pneumonia due to coronavirus disease 2019; J96.01 Acute respiratory failure with hypoxia; E87.2 Acidosis; J44.1 Chronic obstructive pulmonary disease with (acute) exacerbation; N17.9 Acute kidney failure, unspecified; I25.10 Atherosclerotic heart disease of native coronary artery without angina pectoris; I48.91 Unspecified atrial fibrillation; I10 Essential (primary) hypertension; F17.200 Nicotine dependence, unspecified, uncomplicated; G47.33 Obstructive sleep apnea (adult) (pediatric); E11.9 Type 2 diabetes mellitus without complications; E66.9 Obesity, unspecified; Z79.01 Long term (current) use of anticoagulants; Z95.0 Presence of cardiac pacemaker; Z95.5 Presence of coronary angioplasty implant and graft; Z79.84 Long term (current) use of oral hypoglycemic drugs; Z79.899 Other long term (current) drug therapy; Z68.29 Body mass index [BMI] 29.0-29.9, adult

== ENCOUNTER 2020-11-28 14:03 | Emergency (ER) | payer MEDICARE ==
[~2020-11-28] VITALS: Ht 172.7 cm; Wt 90.8 kg
[~2020-11-28 14:03] MED LIST: DAYQUIL PO; ELIQ5TAB PO; LISI10TA22 PO; METF10004 PO; NICO21PAT TD; PRED10TA2 PO; SIMV40TA20 PO; TAMS1CAP17
[2020-11-28] MEDS ORDERED: ASPI81CH33 PO (14:14)
[2020-11-28 15:09] LABS: VENOUS BASE EXCESS 0.2 (-2.0-2.0); VENOUS HCO3 24.3 MEQ/L (23.0-27.0); VENOUS O2 SATURATION 75.5 % (60.0-80.0); VENOUS PARTIAL PRESSURE CO2 37.7 mmHg (38.0-50.0); VENOUS PARTIAL PRESSURE O2 40.3 mmHg (30.0-50.0); VENOUS PH 7.427 UNITS (7.330-7.430); VENOUS STANDARD HCO3 24.1 MEQ/L; VENOUS TOTAL CO2 25.5 MEQ/L (24.0-28.0)
[2020-11-28 15:17] LABS: BASO # 0.1 10^3/uL (0.0-0.2); BASO % 0.7 % (0.0-1.0); EOS # 0.1 10^3/uL (0.0-0.5); EOS % 1.5 % (0.0-3.0); HEMOGLOBIN 13.1 g/dl (13.5-17.5); LYMPH # 2.1 10^3/uL (1.5-5.0); LYMPH % 23.1 % (24.0-44.0); MEAN CORPUSCULAR HEMOGLOBIN 31.6 pg (27.0-33.0); MEAN CORPUSCULAR HGB CONC 34.5 g/dl (32.0-36.5); MEAN CORPUSCULAR VOLUME 91.8 fl (80.0-96.0); MONO # 0.6 10^3/uL (0.0-0.8); MONO % 6.4 % (2.0-8.0); NEUTROPHILS % 66.5 % (36.0-66.0); PLATELET COUNT, AUTOMATED 215 10^3/uL (150-450); RED BLOOD COUNT 4.14 10^6/uL (4.30-6.10); WHITE BLOOD COUNT 9.1 10^3/uL (4.0-10.0)
[2020-11-28 15:25] LABS: INR 1.14; PROTHROMBIN TIME 14.9 SECONDS (12.5-14.3)
[2020-11-28 15:52] LABS: ALBUMIN 3.1 GM/DL (3.2-5.2); BILIRUBIN,DIRECT 0.2 MG/DL (0.0-0.2); BILIRUBIN,TOTAL 0.5 MG/DL (0.2-1.0); THYROID STIMULATING HORMONE 1.3 uIU/ML (0.358-3.740); TOTAL PROTEIN 6.4 GM/DL (6.4-8.2)
--- NOTE | 2020-11-28 16:22 | REP ---
INDICATION: DYSPNEA/COUGH. COMPARISON: 10/26/2020. TECHNIQUE: SINGLE PORTABLE AP VIEW OF THE CHEST WAS PERFORMED. FINDINGS: Diffuse bilateral infiltrates appear essentially unchanged. Heart mediastinum are unchanged. Left 2 lead pacemaker is again noted. IMPRESSION: Diffuse bilateral infiltrates unchanged. The infiltrates are greater on the right than on the left. <Electronically signed by Juan Zhou > 11/28/20 0003
[2020-11-28] MEDS ORDERED: ISOVUE-370 76% 100ML VIAL As Ordered ONE (16:46)
--- NOTE | 2020-11-28 17:56 | REPVR ---
PROCEDURE INFORMATION: Exam: CTA Chest With Contrast Exam date and time: 11/28/2020 5:02 PM Age: 75 years old Clinical indication: Shortness of breath; Additional info: Hypoxia SOB TECHNIQUE: Imaging protocol: Computed tomographic angiography of the chest with contrast. 3D rendering (Not supervised by radiologist): MIP and/or 3D reconstructed images were created by the technologist. Radiation optimization: All CT scans at this facility use at least one of these dose optimization techniques: automated exposure control; mA and/or kV adjustment per patient size (includes targeted exams where dose is matched to clinical indication); or iterative reconstruction. Contrast material: ISOVUE 370; Contrast volume: 75 ml; Contrast route: INTRAVENOUS (IV); COMPARISON: [facility] PORTABLE CHEST X-RAY 11/28/2020 2:50 PM FINDINGS: Pulmonary arteries: There is no filling defect in the pulmonary arteries bilaterally to indicate pulmonary emboli. Aorta: There is atherosclerotic calcification in a tortuous thoracic aorta. No thoracic aortic aneurysm. Additional atherosclerotic changes in the upper abdomen. Lungs: Peripheral opacities particularly on the right in the mid and lower lung, with soft tissue density masslike regions measuring up to 4.4 x 1.8 cm in the right upper lobe and measuring up to 1.0 by 0.8 cm in the lingula, and adjacent mixed interstitial and ground-glass opacities. This is superimposed on moderate to severe emphysematous changes. Pleural spaces: Unremarkable. No pneumothorax. No pleural effusion. Heart: Heart size is mildly enlarged. No pericardial effusion. Mediastinal space: Small to moderate hiatal hernia. Lymph nodes: Paratracheal lymphadenopathy with the largest node measuring 14 mm short axis dimension. Aortic pulmonary window lymph node measures 10 mm short axis dimension. Subcarinal node measures 1.9 cm short axis dimension. Small nonenlarged bilateral hilar lymph nodes. Small posterior mediastinal lymph node adjacent to the hiatal hernia measuring 4 mm short axis dimension. Liver: Minimal diffuse fatty liver change. Kidneys and ureters: There may be a small 1 mm nonobstructing calculus in the upper pole of the left kidney. Bones/joints: No acute osseous abnormality or concerning osseous lesion Soft tissues: Unremarkable. IMPRESSION: 1. No evidence of pulmonary embolism. 2. Peripheral opacities particularly on the right in the mid and lower lung with soft tissue density masslike regions, larger on the right, and adjacent mixed interstitial and ground-glass opacities. Findings may be from interstitial lung disease, potentially with superimposed pneumonia, although neoplasm cannot be completely excluded in the areas of nodular masslike soft tissue density. For patients at low risk (minimal or absent history of smoking and of other known risk factors), recommend CT Chest at 3-6 months, then consider CT Chest at 18-24 months. For patients at high risk (history of smoking or of other known risk factors), recommend CT Chest at 3-6 months, then CT Chest at 18-24 months. (Reference: Ana) 3. Mediastinal lymphadenopathy which may be reactive from pneumonia, although metastases from an unknown primary are not excluded. 4. Minimal diffuse fatty liver change. 5. Emphysema. References: Maria Luzhodeirdre H, et al. Guidelines for Management of Incidental Pulmonary Nodules Detected on CT Images: From the Fleischner Society 2017. Radiology. 2017;284(1):228-243. Electronically signed by: Violette Heller On 11/28/2020 17:56:44 PM
--- NOTE | 2020-11-28 18:02 | ECGEPIP ---
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
[2020-11-28] MEDS ORDERED: CEFU50TA PO (18:54)
[2020-11-28] MEDS ORDERED: PRED10TA2 PO (18:54)
[2020-11-28 19:15] VITALS: BP 152/82
--- NOTE | 2020-11-29 17:48 | ED PDOC ---
Post-Departure Follow-Up cta chest faxed to [facility] for fu Jameson Harper MD Nov 29, 2020 17:48
== END 2020-11-28 19:35 | disposition home or self-care (01) ==
LOC: M ED 14:03
DX: J18.9 Pneumonia, unspecified organism (principal); U07.1 COVID-19; J44.9 Chronic obstructive pulmonary disease, unspecified; I10 Essential (primary) hypertension; E11.9 Type 2 diabetes mellitus without complications; I48.91 Unspecified atrial fibrillation; G47.30 Sleep apnea, unspecified; I25.10 Atherosclerotic heart disease of native coronary artery without angina pectoris; I25.2 Old myocardial infarction; Z99.81 Dependence on supplemental oxygen; Z95.5 Presence of coronary angioplasty implant and graft; Z79.899 Other long term (current) drug therapy; Z79.84 Long term (current) use of oral hypoglycemic drugs; Z79.82 Long term (current) use of aspirin; Z79.01 Long term (current) use of anticoagulants; F17.210 Nicotine dependence, cigarettes, uncomplicated
CPT/HCPCS: 36415; 71045; 71275; 80047; 80076; 82803; 83880; 84443; 84484; 85025; 85610; 87040; 93005; 93041; 99284; Q9967

== ENCOUNTER → 2021-01-24 | Outpatient (CLI) | payer MEDICARE ==
[~2021-01-24] MED LIST changes: +ASPI81CH33 PO; +CEFU50TA PO
--- NOTE | 2021-01-24 10:01 | REP ---
INDICATION: DEPENDENCE ON SUPPLIMENTAL OXYGEN COMPARISON: 11/28/2020 TECHNIQUE: Axial noncontrast images from the thoracic inlet to the upper abdomen with coronal and sagittal reformations. This CT examination was performed using the following dose reduction techniques: Automated exposure control, adjustment of mA and/or kv according to the patient's size, and use of iterative reconstruction technique. FINDINGS: Advanced COPD/emphysematous changes with moderate to significant subpleural fibrosis demonstrating areas of ground-glass opacity and small areas of consolidation. No large acute area of consolidation, effusion, or pneumothorax. Tracheobronchial tree demonstrates stable bronchiectasis. Stable mediastinal and hilar lymph nodes likely reactive again noted. Thoracic aorta, pulmonary vasculature, and heart/pericardium are stable with atherosclerotic disease and pacemaker again noted. No pericardial effusion. In direct comparison with most recent prior examination. The areas of consolidation along the periphery of the right hemithorax have significantly improved while there appears to be slightly more areas of patchy ground-glass opacities/fibrosis along the periphery of the left hemithorax now noted. IMPRESSION: Advanced COPD/emphysematous changes and subpleural fibrosis. While there is decreased areas of consolidation along the right hemithorax as compared to prior examination, there appears to be slightly increased areas of peripheral fibrosis/ground-glass opacities in the left hemithorax, bow without significant large consolidation or effusion. <Electronically signed by Josias Gao > 01/24/21 [id number]
== END ==
LOC: M RAD 08:39
PROVIDERS: ATTEND Nurse Practitioner Family
DX: J44.9 Chronic obstructive pulmonary disease, unspecified (principal); Z99.81 Dependence on supplemental oxygen

== ENCOUNTER → 2021-02-02 | Outpatient (CLI) | payer MEDICARE ==
[2021-02-02 14:54] LABS: C REACTIVE PROTEIN QUANTITATIV 0.62 MG/DL (0.00-0.30); RHEUMATOID FACTOR QUANT < 10.0 IU/ML (<15.0)
== END ==
LOC: M LAB 08:47
PROVIDERS: ATTEND Nurse Practitioner Family
DX: Z99.81 Dependence on supplemental oxygen (principal); Z79.899 Other long term (current) drug therapy

== ENCOUNTER → 2021-03-12 | Outpatient (CLI) | payer MEDICARE ==
--- NOTE | 2021-03-12 15:25 | REP ---
INDICATION: HX OF COVID 19, OXYGEN DEPENDENCE. COMPARISON: CT 01/24/2021, 11/28/2020; portable 11/28/2020, 10/26/2020. TECHNIQUE: Noncontrast CT with coronal and sagittal reconstructions provided. FINDINGS: Study again shows hyperinflation with danced bullous emphysematous changes throughout. There is extensive peripheral fibrotic change in the subpleural regions and further improvement in the areas of consolidation bilaterally. Still significant fibrotic changes and some superimposed interstitial infiltrates are again seen. I do not see pleural effusion, pleural based mass or calcified pleural plaques. No pneumothorax. Apical pleuroparenchymal scarring again noted. Bronchiectatic changes are stable. Heart size not enlarged. Dual lead pacer overlies the left upper chest with leads terminating in the right atrium and ventricle. No pericardial thickening or effusion. The mediastinal and hilar nodes are stable, the largest is a precarinal node up to 14 mm in short axis. These are likely reactive in nature to the inflammatory process. Calcifications aortic arch and descending aorta without aneurysm. Coronary artery calcifications are also noted. Visible structures in the upper abdomen were unchanged from multiple priors. They show no acute finding. Likewise the bony thorax is without acute finding or interval change. IMPRESSION: 1. Advanced COPD with bullous emphysematous changes extensive subpleural fibrotic changes there are decreased areas of consolidations associated with this subpleural fibrotic change and further improvement without complete clearing of the consolidative appearance noted on both sides. No effusion. No definite new areas of consolidation. <Electronically signed by Julio Spear > 03/12/21 [id number]
== END ==
LOC: M RAD 12:43
PROVIDERS: ATTEND Nurse Practitioner Family
DX: J44.9 Chronic obstructive pulmonary disease, unspecified (principal); Z86.16 Personal history of COVID-19; Z99.81 Dependence on supplemental oxygen

== ENCOUNTER → 2021-06-25 | Outpatient (CLI) | payer MEDICARE ==
--- NOTE | 2021-06-25 08:45 | REPVR ---
PROCEDURE INFORMATION: Exam: CT Chest Without Contrast; Diagnostic Exam date and time: 06/25/2021 7:19 AM Age: 75 years old Clinical indication: Abnormal findings; Lung mass or nodule; Not specified; Additional info: Abn findings of lung field TECHNIQUE: Imaging protocol: Diagnostic computed tomography of the chest without contrast. 3D rendering (Not supervised by radiologist): MIP reconstructed images were created by the technologist. Radiation optimization: All CT scans at this facility use at least one of these dose optimization techniques: automated exposure control; mA and/or kV adjustment per patient size (includes targeted exams where dose is matched to clinical indication); or iterative reconstruction. COMPARISON: CT Chest without contrast 03/12/2021 12:58 PM FINDINGS: Tubes, catheters and devices: A dual lead pacemaker is present. Thyroid: The partially imaged bilateral thyroid lobes are unremarkable. Lungs: Peripheral predominant pulmonary intralobular and interlobular septal thickening with architectural distortion, predominating in the bilateral mid lung zones with relative apical and basal sparing. Tree in bud densities l peripheral ateral right upper lobe on the prior study are much less conspicuous/profuse. None of the current densities appear particularly nodular or masslike, with exception of previously described posterior right apical density which appears rounded in the sagittal plane only, maximally measuring 10.7 mm, stable. The previously described lingular nodular density is not appreciated on the current study. Pleural spaces: No pneumothorax. No pleural effusion. Heart: Subendocardial adipose of the cardiac left ventricular apex and mid-distal anterior wall and septum. Aorta: Mild aortic arch, branch, and descending thoracic aortic atherosclerotic calcification without ectasia. Lymph nodes: No enlarged lymph nodes. Diaphragm: A small sliding hiatal hernia is present above the level of the diaphragm. Kidneys and ureters: Left renal 11.7 mm probable benign cyst. Bones/joints: Mild left shoulder rotator cuff calcifications. Thoracic spine vertebral body marginal osteophytes are noted at multiple levels. Soft tissues: Unremarkable. IMPRESSION: 1. Chronic interstitial lung disease, interval improvement in the lateral right upper lobe alveolar component as described, otherwise stable. 2. Stable scarring right pulmonary apex at 16 months. A 2 year follow-up may be helpful. 3. 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 4. Small hiatal hernia. 5. Left renal probable benign cyst. No follow-up imaging is recommended. COMMENTS: Consistent with the [employer]'s Incidental Findings Committee white paper (J Am Zeus Radiol 2018): Any incidental renal lesion less than 1 cm or classified as too small to characterize, or any incidental cystic renal lesion characterized as simple-appearing, is likely benign. No follow-up imaging is recommended for these lesions per consensus recommendations based on imaging criteria. Electronically signed by: Jonnathan De Guzman On 06/25/2021 08:45:20 AM
== END ==
LOC: M RAD 06:55
PROVIDERS: ATTEND Internal Medicine Pulmonary Disease
DX: R91.8 Other nonspecific abnormal finding of lung field (principal)

== ENCOUNTER 2021-10-17 12:57 | Inpatient (IN) | payer MEDICARE ==
[~2021-10-17] VITALS: Ht 172.7 cm; Wt 97.9 kg
[2021-10-17] MEDS ORDERED: dexameTHASONE 20MG/5ML VIAL (J1100 PER 1MG) IV ONE (13:25)
[2021-10-17 13:37] LABS: VENOUS BASE EXCESS -3.8 (-2.0-2.0); VENOUS HCO3 21.9 MEQ/L (23.0-27.0); VENOUS PARTIAL PRESSURE CO2 42.1 mmHg (38.0-50.0); VENOUS PARTIAL PRESSURE O2 17.6 mmHg (30.0-50.0); VENOUS PH 7.334 UNITS (7.330-7.430); VENOUS STANDARD HCO3 19.4 MEQ/L; VENOUS TOTAL CO2 23.2 MEQ/L (24.0-28.0)
[2021-10-17] MEDS: COMBIVENT RESPIMAT 100-20MCG INHALER 4GM INH SCH ×3 (13:38→14:52)
[2021-10-17 13:41] LABS: BASO # 0.1 10^3/uL (0.0-0.2); BASO % 0.8 % (0.0-1.0); EOS # 0.1 10^3/uL (0.0-0.5); EOS % 0.9 % (0.0-3.0); HEMATOCRIT 49.8 % (42.0-52.0); HEMOGLOBIN 16.2 g/dl (13.5-17.5); LYMPH # 1.9 10^3/uL (1.5-5.0); LYMPH % 23.9 % (24.0-44.0); MEAN CORPUSCULAR HEMOGLOBIN 30.7 pg (27.0-33.0); MEAN CORPUSCULAR HGB CONC 32.5 g/dl (32.0-36.5); MEAN CORPUSCULAR VOLUME 94.5 fl (80.0-96.0); MONO # 0.5 10^3/uL (0.0-0.8); NEUTROPHILS # 5.4 10^3/uL (1.5-8.5); NEUTROPHILS % 68.1 % (36.0-66.0); PLATELET COUNT, AUTOMATED 171 10^3/uL (150-450); RED BLOOD COUNT 5.27 10^6/uL (4.30-6.10); WHITE BLOOD COUNT 7.9 10^3/uL (4.0-10.0)
[2021-10-17 14:12] LABS: CK-MB VALUE MASS 5.6 NG/ML (<3.6); MB/CK RELATIVE INDEX 5.05 (< OR =4)
[2021-10-17] MEDS ORDERED: cefTRIAXone SOD 2 GM in D5W MINI-BAG PLUS 50 ML IV ONE (14:20)
[2021-10-17 14:32] LABS: ALBUMIN 3.3 GM/DL (3.2-5.2); ALT/SGPT 25 U/L (12-78); BILIRUBIN,DIRECT 0.9 MG/DL (0.0-0.2); BILIRUBIN,TOTAL 1.8 MG/DL (0.2-1.0); BLOOD UREA NITROGEN 29 MG/DL (7-18); CALCIUM LEVEL 8.9 MG/DL (8.8-10.2); CARBON DIOXIDE LEVEL 23 MEQ/L (21-32); CHLORIDE LEVEL 106 MEQ/L (98-107); CREATININE FOR GFR 1.21 MG/DL (0.70-1.30); GLOMERULAR FILTRATION RATE > 60.0 (>42); GLUCOSE, FASTING 139 MG/DL (70-100); NT-PRO BNP 9997 PG/ML (<450); POTASSIUM SERUM 4.7 MEQ/L (3.5-5.1); SODIUM LEVEL 138 MEQ/L (136-145); TOTAL PROTEIN 5.9 GM/DL (6.4-8.2)
[2021-10-17] MEDS ORDERED: ASPI81TA26 PO (15:03)
[2021-10-17] MEDS ORDERED: CARV6.25 PO (15:03)
[2021-10-17] MEDS ORDERED: HOME MED LIST COMPLETE! XX SCH (15:05)
[2021-10-17] MEDS ORDERED: MOM 30ML SUSPENSION UDC PO PRN (15:45)
[2021-10-17] MEDS ORDERED: ACETAMINOPHEN TAB 650MG DOSE (2X325MG) PO PRN (15:45)
[2021-10-17] MEDS ORDERED: GLUCOSE 4GM CHEW TABLET PO PRN (15:45)
[2021-10-17] MEDS ORDERED: DEXTROSE 50% 50 ML SYRINGE IV PRN (15:45)
[2021-10-17] MEDS ORDERED: GLUCAGON INJ 1MG VIAL SC PRN (15:45)
[2021-10-17] MEDS ORDERED: LEVALBUTEROL 1.25 MG/0.5 ML CONCENTRATE NEB NEB PRN (17:20)
[2021-10-17] MEDS: HumaLOG INSULIN (NovoLOG) PER UNIT SC SCH ×2 (17:25→21:00)
[2021-10-17 18:57] VITALS: BP 113/75
[2021-10-17] MEDS: IPRATROPIUM 0.5MG/ALBUTEROL 2.5MG INH SOL UD 3ML (DUONEB) NEB SCH ×2 (20:00→23:55)
[2021-10-17] MEDS ORDERED: DOXYCYCLINE HYCLATE 100 MG in D5W MINI-BAG PLUS 100 ML IV SCH (21:00)
[2021-10-17] MEDS: SIMVASTATIN 40 MG TAB PO SCH (21:12)
[2021-10-17] MEDS: methylPREDNISolone 125MG 2ML VIAL IV SCH (21:12)
[2021-10-17] MEDS: APIXABAN 5 MG TAB (ELIQUIS) PO SCH (21:12)
[2021-10-17 22:00] VITALS: BP 107/72
[2021-10-18 02:00] VITALS: BP 107/69
[2021-10-18] MEDS ORDERED: cefTRIAXone SOD 1 GM in D5W MINI-BAG PLUS 50 ML IV SCH (02:00)
[2021-10-18 06:00] VITALS: BP 125/79
[2021-10-18 07:20] LABS: HEMATOCRIT 42.9 % (42.0-52.0); HEMOGLOBIN 14.3 g/dl (13.5-17.5); MEAN CORPUSCULAR HEMOGLOBIN 31.2 pg (27.0-33.0); MEAN CORPUSCULAR HGB CONC 33.3 g/dl (32.0-36.5); MEAN CORPUSCULAR VOLUME 93.5 fl (80.0-96.0); PLATELET COUNT, AUTOMATED 144 10^3/uL (150-450); RED BLOOD COUNT 4.59 10^6/uL (4.30-6.10); WHITE BLOOD COUNT 6.3 10^3/uL (4.0-10.0)
[2021-10-18 07:28] LABS: CALCIUM LEVEL 8.3 MG/DL (8.8-10.2); CREATININE FOR GFR 1.31 MG/DL (0.70-1.30); GLOMERULAR FILTRATION RATE 56.5 (>42); MAGNESIUM LEVEL 1.5 MG/DL (1.8-2.4); POTASSIUM SERUM 4.3 MEQ/L (3.5-5.1)
[2021-10-18] MEDS: IPRATROPIUM 0.5MG/ALBUTEROL 2.5MG INH SOL UD 3ML (DUONEB) NEB SCH ×3 (08:21→20:20)
[2021-10-18] MEDS: APIXABAN 5 MG TAB (ELIQUIS) PO SCH ×2 (08:31→20:00)
[2021-10-18] MEDS: HumaLOG INSULIN (NovoLOG) PER UNIT SC SCH ×4 (08:31→21:00)
[2021-10-18] MEDS: methylPREDNISolone 125MG 2ML VIAL IV SCH ×2 (08:31→20:00)
[2021-10-18] MEDS: FUROSEMIDE 40MG/4ML VIAL (J1940) IV SCH (08:31)
[2021-10-18] MEDS: ASPIRIN 81MG ENTERIC TABLET PO SCH (08:31)
[2021-10-18 10:00] VITALS: BP 122/78
[2021-10-18] MEDS: MAG SULF 1GM/100ML (MAG RUN) 1 GM in IV 1 EA IV SCH ×2 (12:14→13:37)
[2021-10-18 14:00] VITALS: BP 117/71
[2021-10-18 16:25] LABS: CALCIUM LEVEL 8.6 MG/DL (8.8-10.2); CREATININE FOR GFR 1.38 MG/DL (0.70-1.30); GLOMERULAR FILTRATION RATE 53.2 (>42); POTASSIUM SERUM 4.1 MEQ/L (3.5-5.1)
[2021-10-18] MEDS: SIMVASTATIN 40 MG TAB PO SCH (20:00)
[2021-10-18 21:00] VITALS: BP 113/76
[2021-10-19] MEDS: IPRATROPIUM 0.5MG/ALBUTEROL 2.5MG INH SOL UD 3ML (DUONEB) NEB SCH ×4 (01:43→20:37)
[2021-10-19 02:00] VITALS: BP 113/76
[2021-10-19 05:41] VITALS: BP 113/77
[2021-10-19 06:10] LABS: HEMOGLOBIN 13.5 g/dl (13.5-17.5); MEAN CORPUSCULAR HEMOGLOBIN 30.9 pg (27.0-33.0); MEAN CORPUSCULAR HGB CONC 32.9 g/dl (32.0-36.5); MEAN CORPUSCULAR VOLUME 93.8 fl (80.0-96.0); PLATELET COUNT, AUTOMATED 148 10^3/uL (150-450); RED BLOOD COUNT 4.37 10^6/uL (4.30-6.10); WHITE BLOOD COUNT 11.6 10^3/uL (4.0-10.0)
[2021-10-19 06:37] LABS: BLOOD UREA NITROGEN 36 MG/DL (7-18); CALCIUM LEVEL 8.6 MG/DL (8.8-10.2); CARBON DIOXIDE LEVEL 27 MEQ/L (21-32); CHLORIDE LEVEL 106 MEQ/L (98-107); GLOMERULAR FILTRATION RATE > 60.0 (>42); GLUCOSE, FASTING 177 MG/DL (70-100); POTASSIUM SERUM 4.4 MEQ/L (3.5-5.1); SODIUM LEVEL 141 MEQ/L (136-145)
[2021-10-19] MEDS: methylPREDNISolone 125MG 2ML VIAL IV SCH ×2 (08:19→20:19)
[2021-10-19] MEDS: ASPIRIN 81MG ENTERIC TABLET PO SCH (08:19)
[2021-10-19] MEDS: HumaLOG INSULIN (NovoLOG) PER UNIT SC SCH ×4 (08:19→20:20)
[2021-10-19] MEDS: APIXABAN 5 MG TAB (ELIQUIS) PO SCH ×2 (08:19→20:19)
[2021-10-19] MEDS: FUROSEMIDE 40MG/4ML VIAL (J1940) IV SCH (08:19)
[2021-10-19 10:00] VITALS: BP 113/79
[2021-10-19 14:00] VITALS: BP 108/75
[2021-10-19 16:08] LABS: MYCOPLASMA PNEUMONIAE IgG 510 U/mL (0-99); MYCOPLASMA PNEUMONIAE IgM <770 U/mL (0-769)
[2021-10-19 18:00] VITALS: BP 108/74
[2021-10-19] MEDS: SIMVASTATIN 40 MG TAB PO SCH (20:19)
[2021-10-19 21:00] VITALS: BP 109/74
[2021-10-19] MEDS: hydrOXYzine 25 MG TAB PO PRN (22:47)
[2021-10-19] MEDS: RAMELTEON 8 MG TAB (ROZEREM) PO PRN (22:47)
[2021-10-20] VITALS (7 sets, daily range): BP systolic 118–129; BP diastolic 76–91
[2021-10-20] MEDS: IPRATROPIUM 0.5MG/ALBUTEROL 2.5MG INH SOL UD 3ML (DUONEB) NEB SCH ×4 (00:19→19:48)
[2021-10-20] MEDS ORDERED: SALIVA SUBSTITUTE(MOUTHKOTE) BTL MT PRN (00:20)
[2021-10-20] MEDS ORDERED: SODIUM CHLORIDE NASAL 0.65% SPRAY BTL (OCEAN) PRN (00:20)
[2021-10-20 05:40] LABS: VENOUS BASE EXCESS -0.2 (-2.0-2.0); VENOUS HCO3 25.7 MEQ/L (23.0-27.0); VENOUS PARTIAL PRESSURE CO2 46.7 mmHg (38.0-50.0); VENOUS PARTIAL PRESSURE O2 51.4 mmHg (30.0-50.0); VENOUS PH 7.359 UNITS (7.330-7.430); VENOUS TOTAL CO2 27.2 MEQ/L (24.0-28.0)
[2021-10-20 05:58] LABS: HEMATOCRIT 40.2 % (42.0-52.0); HEMOGLOBIN 13.1 g/dl (13.5-17.5); MEAN CORPUSCULAR HEMOGLOBIN 30.8 pg (27.0-33.0); MEAN CORPUSCULAR HGB CONC 32.6 g/dl (32.0-36.5); MEAN CORPUSCULAR VOLUME 94.4 fl (80.0-96.0); PLATELET COUNT, AUTOMATED 142 10^3/uL (150-450); RED BLOOD COUNT 4.26 10^6/uL (4.30-6.10); WHITE BLOOD COUNT 10.2 10^3/uL (4.0-10.0)
[2021-10-20 06:14] LABS: BLOOD UREA NITROGEN 36 MG/DL (7-18); CALCIUM LEVEL 8.4 MG/DL (8.8-10.2); CARBON DIOXIDE LEVEL 28 MEQ/L (21-32); CHLORIDE LEVEL 106 MEQ/L (98-107); CREATININE FOR GFR 1.11 MG/DL (0.70-1.30); GLOMERULAR FILTRATION RATE > 60.0 (>42); GLUCOSE, FASTING 179 MG/DL (70-100); POTASSIUM SERUM 4.2 MEQ/L (3.5-5.1); SODIUM LEVEL 141 MEQ/L (136-145)
[2021-10-20] MEDS: FUROSEMIDE 40MG/4ML VIAL (J1940) IV SCH (09:15)
[2021-10-20] MEDS: methylPREDNISolone 125MG 2ML VIAL IV SCH ×2 (09:15→20:56)
[2021-10-20] MEDS: HumaLOG INSULIN (NovoLOG) PER UNIT SC SCH ×4 (09:16→20:32)
[2021-10-20] MEDS: APIXABAN 5 MG TAB (ELIQUIS) PO SCH ×2 (09:16→20:57)
[2021-10-20] MEDS: ASPIRIN 81MG ENTERIC TABLET PO SCH (09:16)
[2021-10-20] MEDS: cefTRIAXone SOD 1 GM in D5W MINI-BAG PLUS 50 ML IV SCH (09:17)
[2021-10-20] MEDS: FLUTICASONE PROP 0.05% NASAL SPRAY 16 GM (FLONASE) NARES PRN ×2 (09:40→19:00)
[2021-10-20] MEDS: SIMVASTATIN 40 MG TAB PO SCH (20:57)
[2021-10-20] MEDS ORDERED: FUROSEMIDE 40MG/4ML VIAL (J1940) IV SCH (21:00)
[2021-10-21] MEDS: IPRATROPIUM 0.5MG/ALBUTEROL 2.5MG INH SOL UD 3ML (DUONEB) NEB SCH ×4 (01:27→21:00)
[2021-10-21 02:00] VITALS: BP 117/70
[2021-10-21 06:00] VITALS: BP 110/69
[2021-10-21 06:46] LABS: HEMATOCRIT 40.4 % (42.0-52.0); HEMOGLOBIN 13.2 g/dl (13.5-17.5); MEAN CORPUSCULAR HEMOGLOBIN 30.9 pg (27.0-33.0); MEAN CORPUSCULAR HGB CONC 32.7 g/dl (32.0-36.5); MEAN CORPUSCULAR VOLUME 94.6 fl (80.0-96.0); PLATELET COUNT, AUTOMATED 123 10^3/uL (150-450); RED BLOOD COUNT 4.27 10^6/uL (4.30-6.10); WHITE BLOOD COUNT 8.9 10^3/uL (4.0-10.0)
[2021-10-21 07:13] LABS: BLOOD UREA NITROGEN 35 MG/DL (7-18); CALCIUM LEVEL 8.1 MG/DL (8.8-10.2); CARBON DIOXIDE LEVEL 32 MEQ/L (21-32); CHLORIDE LEVEL 102 MEQ/L (98-107); CREATININE FOR GFR 1.09 MG/DL (0.70-1.30); GLOMERULAR FILTRATION RATE > 60.0 (>42); GLUCOSE, FASTING 215 MG/DL (70-100); POTASSIUM SERUM 3.6 MEQ/L (3.5-5.1); SODIUM LEVEL 143 MEQ/L (136-145)
[2021-10-21] MEDS ORDERED: POTASSIUM CHLORIDE 10MEQ SR TABLET PO ONE (07:40)
[2021-10-21] MEDS: HumaLOG INSULIN (NovoLOG) PER UNIT SC SCH ×4 (07:47→21:01)
[2021-10-21] MEDS: ASPIRIN 81MG ENTERIC TABLET PO SCH (08:58)
[2021-10-21] MEDS: APIXABAN 5 MG TAB (ELIQUIS) PO SCH ×2 (08:58→21:00)
[2021-10-21] MEDS: methylPREDNISolone 125MG 2ML VIAL IV SCH ×2 (09:00→21:01)
[2021-10-21] MEDS: FUROSEMIDE 40MG/4ML VIAL (J1940) IV SCH ×2 (09:01→18:02)
[2021-10-21] MEDS: cefTRIAXone SOD 1 GM in D5W MINI-BAG PLUS 50 ML IV SCH (09:02)
[2021-10-21 10:00] VITALS: BP 110/72
[2021-10-21] MEDS: FLUTICASONE PROP 0.05% NASAL SPRAY 16 GM (FLONASE) NARES PRN (11:54)
[2021-10-21 13:33] VITALS: O2SAT 89
[2021-10-21 13:42] LABS: BLOOD UREA NITROGEN 36 MG/DL (7-18); CALCIUM LEVEL 8.5 MG/DL (8.8-10.2); CARBON DIOXIDE LEVEL 34 MEQ/L (21-32); CHLORIDE LEVEL 100 MEQ/L (98-107); CREATININE FOR GFR 1.18 MG/DL (0.70-1.30); GLOMERULAR FILTRATION RATE > 60.0 (>42); GLUCOSE, FASTING 162 MG/DL (70-100); MAGNESIUM LEVEL 1.8 MG/DL (1.8-2.4); POTASSIUM SERUM 3.8 MEQ/L (3.5-5.1); SODIUM LEVEL 142 MEQ/L (136-145)
[2021-10-21 14:00] VITALS: BP 110/73
[2021-10-21] MEDS: SIMVASTATIN 40 MG TAB PO SCH (21:00)
[2021-10-21 21:30] VITALS: BP 110/74
[2021-10-22] MEDS: IPRATROPIUM 0.5MG/ALBUTEROL 2.5MG INH SOL UD 3ML (DUONEB) NEB SCH ×4 (01:46→20:22)
[2021-10-22 02:00] VITALS: BP 120/78
[2021-10-22 06:00] VITALS: BP 120/78
[2021-10-22 06:17] LABS: HEMOGLOBIN 13.2 g/dl (13.5-17.5); MEAN CORPUSCULAR HEMOGLOBIN 30.9 pg (27.0-33.0); MEAN CORPUSCULAR VOLUME 93.7 fl (80.0-96.0); PLATELET COUNT, AUTOMATED 117 10^3/uL (150-450); RED BLOOD COUNT 4.27 10^6/uL (4.30-6.10); WHITE BLOOD COUNT 9.3 10^3/uL (4.0-10.0)
[2021-10-22 06:54] LABS: BLOOD UREA NITROGEN 35 MG/DL (7-18); CALCIUM LEVEL 8.3 MG/DL (8.8-10.2); CARBON DIOXIDE LEVEL 34 MEQ/L (21-32); CHLORIDE LEVEL 99 MEQ/L (98-107); CREATININE FOR GFR 1.17 MG/DL (0.70-1.30); GLOMERULAR FILTRATION RATE > 60.0 (>42); GLUCOSE, FASTING 183 MG/DL (70-100); POTASSIUM SERUM 4.1 MEQ/L (3.5-5.1); SODIUM LEVEL 138 MEQ/L (136-145)
[2021-10-22] MEDS: APIXABAN 5 MG TAB (ELIQUIS) PO SCH ×2 (09:00→20:08)
[2021-10-22] MEDS: ASPIRIN 81MG ENTERIC TABLET PO SCH (09:00)
[2021-10-22] MEDS: cefTRIAXone SOD 1 GM in D5W MINI-BAG PLUS 50 ML IV SCH (09:01)
[2021-10-22] MEDS: methylPREDNISolone 125MG 2ML VIAL IV SCH ×2 (09:01→20:09)
[2021-10-22] MEDS: FUROSEMIDE 40MG/4ML VIAL (J1940) IV SCH ×2 (09:01→17:44)
[2021-10-22] MEDS: SODIUM CHLORIDE NASAL 0.65% SPRAY BTL (OCEAN) SCH ×3 (09:02→20:09)
[2021-10-22] MEDS: HumaLOG INSULIN (NovoLOG) PER UNIT SC SCH ×4 (09:02→20:02)
[2021-10-22 10:00] VITALS: BP 116/76
[2021-10-22 14:00] VITALS: BP 116/77
[2021-10-22 15:42] LABS: ABG BASE EXCESS 3.7 (-2.0-2.0); ABG HCO3 27.4 MEQ/L (22.0-26.0); ABG O2 SATURATION 93.6 % (95.0-99.0); ABG PARTIAL PRESSURE CO2 38.4 mmHg (35.0-45.0); ABG STANDARD HCO3 27.7 MEQ/L (22.0-26.0); ABG TOTAL CO2 28.6 MEQ/L (23.0-31.0); ABG pH (ARTERIAL) 7.472 UNITS (7.350-7.450)
[2021-10-22] MEDS: SIMVASTATIN 40 MG TAB PO SCH (20:08)
[2021-10-22 20:22] VITALS: O2SAT 95
[2021-10-22 22:00] VITALS: BP 105/70
[2021-10-23] MEDS: IPRATROPIUM 0.5MG/ALBUTEROL 2.5MG INH SOL UD 3ML (DUONEB) NEB SCH ×4 (01:00→20:14)
[2021-10-23 02:00] VITALS: BP 111/71
[2021-10-23 06:00] VITALS: BP 111/71
[2021-10-23 06:00] LABS: HEMATOCRIT 39.7 % (42.0-52.0); MEAN CORPUSCULAR HGB CONC 32.7 g/dl (32.0-36.5); MEAN CORPUSCULAR VOLUME 94.5 fl (80.0-96.0); PLATELET COUNT, AUTOMATED 119 10^3/uL (150-450); WHITE BLOOD COUNT 9.6 10^3/uL (4.0-10.0)
[2021-10-23 06:23] LABS: BLOOD UREA NITROGEN 35 MG/DL (7-18); CARBON DIOXIDE LEVEL 38 MEQ/L (21-32); CHLORIDE LEVEL 97 MEQ/L (98-107); CREATININE FOR GFR 1.05 MG/DL (0.70-1.30); GLOMERULAR FILTRATION RATE > 60.0 (>42); GLUCOSE, FASTING 159 MG/DL (70-100); POTASSIUM SERUM 3.3 MEQ/L (3.5-5.1); SODIUM LEVEL 139 MEQ/L (136-145)
[2021-10-23] MEDS: methylPREDNISolone 125MG 2ML VIAL IV SCH (08:50)
[2021-10-23] MEDS: POTASSIUM CHLORIDE 10MEQ SR TABLET PO SCH (08:51)
[2021-10-23] MEDS: HumaLOG INSULIN (NovoLOG) PER UNIT SC SCH ×4 (08:51→20:30)
[2021-10-23] MEDS: SODIUM CHLORIDE NASAL 0.65% SPRAY BTL (OCEAN) SCH ×3 (08:51→20:30)
[2021-10-23] MEDS: FUROSEMIDE 40MG/4ML VIAL (J1940) IV SCH (08:51)
[2021-10-23] MEDS: APIXABAN 5 MG TAB (ELIQUIS) PO SCH ×2 (08:51→20:29)
[2021-10-23] MEDS: ASPIRIN 81MG ENTERIC TABLET PO SCH (08:51)
[2021-10-23 10:00] VITALS: BP 110/73
[2021-10-23] MEDS: SPIRONOLACTONE 25 MG TAB PO SCH (12:41)
[2021-10-23 14:00] VITALS: BP 106/71
[2021-10-23] MEDS ORDERED: TORSEMIDE 10 MG TABLET PO SCH (17:00)
[2021-10-23] MEDS: SIMVASTATIN 40 MG TAB PO SCH (20:29)
[2021-10-23] MEDS ORDERED: LEVEMIR (INSULIN DETEMIR) 1 UNITS/0.01ML SC SCH (21:00)
[2021-10-23 22:00] VITALS: BP 100/64
[2021-10-24] VITALS (14 sets, daily range): BP systolic 92–130; BP diastolic 57–87; O2SAT 90–95
[2021-10-24] MEDS: IPRATROPIUM 0.5MG/ALBUTEROL 2.5MG INH SOL UD 3ML (DUONEB) NEB SCH ×4 (01:50→19:51)
[2021-10-24 05:10] LABS: HEMATOCRIT 40.1 % (42.0-52.0); HEMOGLOBIN 13.1 g/dl (13.5-17.5); MEAN CORPUSCULAR HGB CONC 32.7 g/dl (32.0-36.5); PLATELET COUNT, AUTOMATED 134 10^3/uL (150-450); RED BLOOD COUNT 4.22 10^6/uL (4.30-6.10); WHITE BLOOD COUNT 11.9 10^3/uL (4.0-10.0)
[2021-10-24 05:36] LABS: BLOOD UREA NITROGEN 38 MG/DL (7-18); CARBON DIOXIDE LEVEL 41 MEQ/L (21-32); CHLORIDE LEVEL 99 MEQ/L (98-107); CREATININE FOR GFR 1.06 MG/DL (0.70-1.30); GLOMERULAR FILTRATION RATE > 60.0 (>42); GLUCOSE, FASTING 50 MG/DL (70-100); POTASSIUM SERUM 3.2 MEQ/L (3.5-5.1); SODIUM LEVEL 143 MEQ/L (136-145)
[2021-10-24 07:03] LABS: LDH LACTATE DEHYDROGENASE 387 U/L (87-241); TOTAL PROTEIN 5.8 GM/DL (6.4-8.2)
[2021-10-24] MEDS: HumaLOG INSULIN (NovoLOG) PER UNIT SC SCH ×4 (07:24→20:31)
[2021-10-24] MEDS: predniSONE 20 MG TAB PO SCH (08:49)
[2021-10-24] MEDS: POTASSIUM CHLORIDE 10MEQ SR TABLET PO SCH (08:49)
[2021-10-24] MEDS: MIDODRINE 5 MG TAB PO SCH ×3 (08:50→16:10)
[2021-10-24] MEDS: ENTRESTO 24-26MG TABLET (SACUBITRIL/VALSARTAN) PO SCH ×2 (08:50→20:30)
[2021-10-24] MEDS: CARVedilol 3.125 MG TAB PO SCH (08:50)
[2021-10-24] MEDS: ASPIRIN 81MG ENTERIC TABLET PO SCH (08:51)
[2021-10-24] MEDS: SODIUM CHLORIDE NASAL 0.65% SPRAY BTL (OCEAN) SCH ×3 (08:51→20:32)
[2021-10-24] MEDS: SPIRONOLACTONE 25 MG TAB PO SCH (09:00)
[2021-10-24 13:30] LABS: APPEARANCE, BODY FLUID HAZY (CLEAR); PLEURAL FL COLOR YELLOW (COLORLESS); SOURCE, BODY FLUID PLEURAL
[2021-10-24 13:52] LABS: PH BODY FLUID 7.746 UNITS (NOT ESTABLISHED); SOURCE, BODY FLUID pH PLEURAL
[2021-10-24 14:15] LABS: AMYLASE, BODY FLUID 21 U/L (NOT ESTABLISHED); CHOLESTEROL, BODY FLUID < 50 MG/DL (NOT ESTABLISHED); LDH, BODY FLUID 106 U/L (NOT ESTABLISHED); SOURCE, BODY FLUID AMYLASE PLEURAL; SOURCE, BODY FLUID CHOL PLEURAL; SOURCE, BODY FLUID GLUCOSE PLEURAL; SOURCE, BODY FLUID LDH PLEURAL; TRIGLYCERIDE, BODY FLUID 16 MG/DL (NOT ESTABLISHED)
[2021-10-24 14:16] LABS: SOURCE, BODY FLUID TRIG PLEURAL
[2021-10-24 14:37] LABS: SOURCE, BODY FLUID ALBUMIN PLEURAL; SOURCE, BODY FLUID TOT PROTEIN PLEURAL; TOTAL PROTEIN, BODY FLUID 2.8 G/DL (NOT ESTABLISHED)
[2021-10-24 15:08] LABS: ALBUMIN 3.7 GM/DL (3.2-5.2); BILIRUBIN,TOTAL 2.5 MG/DL (0.2-1.0); TOTAL PROTEIN 6.4 GM/DL (6.4-8.2)
[2021-10-24] MEDS: SIMVASTATIN 40 MG TAB PO SCH (20:30)
[2021-10-25] VITALS (8 sets, daily range): BP systolic 102–112; BP diastolic 64–69; O2SAT 93
[2021-10-25] MEDS: IPRATROPIUM 0.5MG/ALBUTEROL 2.5MG INH SOL UD 3ML (DUONEB) NEB SCH ×4 (02:41→20:23)
[2021-10-25 07:16] LABS: HEMATOCRIT 44.4 % (42.0-52.0); HEMOGLOBIN 14.6 g/dl (13.5-17.5); MEAN CORPUSCULAR HEMOGLOBIN 31.3 pg (27.0-33.0); MEAN CORPUSCULAR HGB CONC 32.9 g/dl (32.0-36.5); MEAN CORPUSCULAR VOLUME 95.3 fl (80.0-96.0); PLATELET COUNT, AUTOMATED 128 10^3/uL (150-450); RED BLOOD COUNT 4.66 10^6/uL (4.30-6.10); WHITE BLOOD COUNT 11.6 10^3/uL (4.0-10.0)
[2021-10-25 07:44] LABS: BLOOD UREA NITROGEN 34 MG/DL (7-18); CALCIUM LEVEL 7.9 MG/DL (8.8-10.2); CARBON DIOXIDE LEVEL 35 MEQ/L (21-32); CHLORIDE LEVEL 102 MEQ/L (98-107); CREATININE FOR GFR 0.88 MG/DL (0.70-1.30); GLOMERULAR FILTRATION RATE > 60.0 (>42); GLUCOSE, FASTING 115 MG/DL (70-100); POTASSIUM SERUM 3.5 MEQ/L (3.5-5.1); SODIUM LEVEL 141 MEQ/L (136-145)
[2021-10-25] MEDS: MIDODRINE 5 MG TAB PO SCH ×3 (08:12→16:15)
[2021-10-25] MEDS: APIXABAN 5 MG TAB (ELIQUIS) PO SCH ×2 (08:12→21:53)
[2021-10-25] MEDS: HumaLOG INSULIN (NovoLOG) PER UNIT SC SCH ×4 (08:12→21:00)
[2021-10-25] MEDS: cefTRIAXone SOD 2 GM in D5W MINI-BAG PLUS 50 ML IV SCH (08:12)
[2021-10-25] MEDS: ASPIRIN 81MG ENTERIC TABLET PO SCH (08:12)
[2021-10-25] MEDS: POTASSIUM CHLORIDE 10MEQ SR TABLET PO SCH (08:12)
[2021-10-25] MEDS: CARVedilol 3.125 MG TAB PO SCH (08:13)
[2021-10-25] MEDS: SODIUM CHLORIDE NASAL 0.65% SPRAY BTL (OCEAN) SCH ×3 (08:13→21:53)
[2021-10-25] MEDS: SPIRONOLACTONE 25 MG TAB PO SCH (08:13)
[2021-10-25] MEDS: ENTRESTO 24-26MG TABLET (SACUBITRIL/VALSARTAN) PO SCH (08:13)
[2021-10-25] MEDS: predniSONE 20 MG TAB PO SCH (09:37)
[2021-10-25 11:36] LABS: NT-PRO BNP 11319 PG/ML (<450)
[2021-10-25] MEDS ORDERED: FUROSEMIDE injection 250 MG in D5W 225 ML IV SCH (19:00)
[2021-10-25] MEDS: FUROSEMIDE injection 250 MG in D5W 225 ML IV SCH (19:00)
[2021-10-25] MEDS: SIMVASTATIN 40 MG TAB PO SCH (21:53)
[2021-10-26] VITALS (18 sets, daily range): BP systolic 94–122; BP diastolic 61–83; O2SAT 81–97
[2021-10-26] MEDS: IPRATROPIUM 0.5MG/ALBUTEROL 2.5MG INH SOL UD 3ML (DUONEB) NEB SCH ×2 (00:57→07:46)
[2021-10-26 05:51] LABS: HEMATOCRIT 46.1 % (42.0-52.0); HEMOGLOBIN 15.1 g/dl (13.5-17.5); MEAN CORPUSCULAR HEMOGLOBIN 31.4 pg (27.0-33.0); MEAN CORPUSCULAR HGB CONC 32.8 g/dl (32.0-36.5); MEAN CORPUSCULAR VOLUME 95.8 fl (80.0-96.0); PLATELET COUNT, AUTOMATED 140 10^3/uL (150-450); RED BLOOD COUNT 4.81 10^6/uL (4.30-6.10); WHITE BLOOD COUNT 10.9 10^3/uL (4.0-10.0)
[2021-10-26 06:16] LABS: BLOOD UREA NITROGEN 39 MG/DL (7-18); CALCIUM LEVEL 8.5 MG/DL (8.8-10.2); CARBON DIOXIDE LEVEL 37 MEQ/L (21-32); CHLORIDE LEVEL 101 MEQ/L (98-107); CREATININE FOR GFR 1.12 MG/DL (0.70-1.30); GLOMERULAR FILTRATION RATE > 60.0 (>42); GLUCOSE, FASTING 167 MG/DL (70-100); MAGNESIUM LEVEL 1.9 MG/DL (1.8-2.4); PHOSPHORUS LEVEL 2.5 MG/DL (2.5-4.9); POTASSIUM SERUM 4.7 MEQ/L (3.5-5.1); SODIUM LEVEL 141 MEQ/L (136-145)
[2021-10-26] MEDS: APIXABAN 5 MG TAB (ELIQUIS) PO SCH ×2 (08:25→20:18)
[2021-10-26] MEDS: MIDODRINE 5 MG TAB PO SCH ×3 (08:25→16:38)
[2021-10-26] MEDS: ASPIRIN 81MG ENTERIC TABLET PO SCH (08:25)
[2021-10-26] MEDS: predniSONE 20 MG TAB PO SCH (08:25)
[2021-10-26] MEDS: POTASSIUM CHLORIDE 10MEQ SR TABLET PO SCH (08:25)
[2021-10-26] MEDS: SPIRONOLACTONE 25 MG TAB PO SCH (08:26)
[2021-10-26] MEDS: HumaLOG INSULIN (NovoLOG) PER UNIT SC SCH ×4 (08:27→20:18)
[2021-10-26] MEDS: cefTRIAXone SOD 2 GM in D5W MINI-BAG PLUS 50 ML IV SCH (08:27)
[2021-10-26] MEDS: FLUTICASONE PROP 0.05% NASAL SPRAY 16 GM (FLONASE) NARES PRN (08:29)
[2021-10-26] MEDS ORDERED: FUROSEMIDE injection 250 MG in D5W 225 ML IV SCH (08:40)
[2021-10-26] MEDS: SODIUM CHLORIDE NASAL 0.65% SPRAY BTL (OCEAN) SCH ×3 (09:34→20:19)
[2021-10-26] MEDS: FUROSEMIDE injection 250 MG in D5W 225 ML IV SCH (10:25)
[2021-10-26] MEDS ORDERED: LEVALBUTEROL 1.25 MG/0.5 ML CONCENTRATE NEB INH PRN (12:40)
[2021-10-26] MEDS ORDERED: methylPREDNISolone 125MG 2ML VIAL IV ONE (12:40)
[2021-10-26 12:59] LABS: BLOOD UREA NITROGEN 39 MG/DL (7-18); CALCIUM LEVEL 8.1 MG/DL (8.8-10.2); CARBON DIOXIDE LEVEL 32 MEQ/L (21-32); CHLORIDE LEVEL 100 MEQ/L (98-107); CREATININE FOR GFR 1.13 MG/DL (0.70-1.30); GLOMERULAR FILTRATION RATE > 60.0 (>42); GLUCOSE, FASTING 292 MG/DL (70-100); POTASSIUM SERUM 4.1 MEQ/L (3.5-5.1); SODIUM LEVEL 138 MEQ/L (136-145)
[2021-10-26] MEDS ORDERED: SODIUM CHLORIDE NASAL 0.65% SPRAY BTL (OCEAN) PRN (13:00)
[2021-10-26] MEDS: SODIUM CHLORIDE 0.9% NASAL GEL 15GM (AYR) SCH ×3 (14:28→20:19)
[2021-10-26] MEDS: LEVALBUTEROL 1.25 MG/0.5 ML CONCENTRATE NEB INH SCH ×3 (15:10→23:18)
[2021-10-26] MEDS ORDERED: ISOVUE-370 76% 100ML VIAL As Ordered ONE (15:59)
[2021-10-26 18:23] LABS: CALCIUM LEVEL 8.1 MG/DL (8.8-10.2); CREATININE FOR GFR 1.3 MG/DL (0.70-1.30); POTASSIUM SERUM 4.2 MEQ/L (3.5-5.1)
[2021-10-26] MEDS: methylPREDNISolone 125MG 2ML VIAL IV SCH (18:40)
[2021-10-26] MEDS: SIMVASTATIN 40 MG TAB PO SCH (20:18)
[2021-10-26] MEDS: hydrOXYzine 25 MG TAB PO PRN (22:32)
[2021-10-26] MEDS: RAMELTEON 8 MG TAB (ROZEREM) PO PRN (22:32)
[2021-10-27] VITALS (20 sets, daily range): BP systolic 85–150; BP diastolic 53–100
[2021-10-27] MEDS: methylPREDNISolone 125MG 2ML VIAL IV SCH ×2 (00:08→05:29)
[2021-10-27] MEDS: SODIUM CHLORIDE 0.9% NASAL GEL 15GM (AYR) SCH ×6 (00:09→20:56)
[2021-10-27] MEDS ORDERED: ALBUTEROL 90 MCG/ACT 8GM HFA INHALER INH PRN (01:00)
[2021-10-27 01:32] LABS: ABG O2 SATURATION 83.6 % (95.0-99.0)
[2021-10-27 01:34] LABS: ABG BASE EXCESS 6.5 (-2.0-2.0); ABG HCO3 30.5 MEQ/L (22.0-26.0); ABG TOTAL CO2 31.7 MEQ/L (23.0-31.0); ABG pH (ARTERIAL) 7.489 UNITS (7.350-7.450)
[2021-10-27] MEDS ORDERED: FUROSEMIDE injection 250 MG in D5W 225 ML IV SCH ×2 (01:35→08:15)
[2021-10-27] MEDS ORDERED: ALBUTEROL SULFATE 2.5 MG/0.5 ML INH NEB SOLN NEB SCH (02:00)
[2021-10-27 02:26] LABS: BASO % 0.2 % (0.0-1.0); EOS % 0.1 % (0.0-3.0); HEMATOCRIT 43.7 % (42.0-52.0); HEMOGLOBIN 13.9 g/dl (13.5-17.5); LYMPH # 0.6 10^3/uL (1.5-5.0); MEAN CORPUSCULAR HEMOGLOBIN 30.9 pg (27.0-33.0); MEAN CORPUSCULAR HGB CONC 31.8 g/dl (32.0-36.5); MEAN CORPUSCULAR VOLUME 97.1 fl (80.0-96.0); MONO # 0.1 10^3/uL (0.0-0.8); MONO % 1.3 % (2.0-8.0); NEUTROPHILS # 8.6 10^3/uL (1.5-8.5); NEUTROPHILS % 90.7 % (36.0-66.0); PLATELET COUNT, AUTOMATED 128 10^3/uL (150-450); WHITE BLOOD COUNT 9.5 10^3/uL (4.0-10.0)
[2021-10-27 02:55] LABS: RSV AMPLIFICATION NEGATIVE (NEGATIVE)
[2021-10-27 02:58] LABS: ALBUMIN 3.2 GM/DL (3.2-5.2); ALT/SGPT 88 U/L (12-78); BILIRUBIN,TOTAL 1.4 MG/DL (0.2-1.0); BLOOD UREA NITROGEN 45 MG/DL (7-18); CARBON DIOXIDE LEVEL 35 MEQ/L (21-32); CHLORIDE LEVEL 99 MEQ/L (98-107); CREATININE FOR GFR 1.12 MG/DL (0.70-1.30); GLOMERULAR FILTRATION RATE > 60.0 (>42); GLUCOSE, FASTING 289 MG/DL (70-100); MAGNESIUM LEVEL 1.8 MG/DL (1.8-2.4); PHOSPHORUS LEVEL 2.6 MG/DL (2.5-4.9); POTASSIUM SERUM 4.4 MEQ/L (3.5-5.1); SODIUM LEVEL 140 MEQ/L (136-145)
[2021-10-27] MEDS: hydrOXYzine 25 MG TAB PO PRN ×2 (03:06→20:49)
[2021-10-27] MEDS: LEVALBUTEROL 1.25 MG/0.5 ML CONCENTRATE NEB INH SCH ×6 (03:43→23:38)
[2021-10-27 05:51] LABS: ABG HCO3 29.7 MEQ/L (22.0-26.0); ABG O2 SATURATION 99.5 % (95.0-99.0); ABG PARTIAL PRESSURE O2 309.7 mmHg (75.0-100.0); ABG pH (ARTERIAL) 7.447 UNITS (7.350-7.450)
[2021-10-27 06:44] LABS: HEMATOCRIT 42.2 % (42.0-52.0); HEMOGLOBIN 13.7 g/dl (13.5-17.5); MEAN CORPUSCULAR HEMOGLOBIN 30.9 pg (27.0-33.0); MEAN CORPUSCULAR HGB CONC 32.5 g/dl (32.0-36.5); PLATELET COUNT, AUTOMATED 125 10^3/uL (150-450); RED BLOOD COUNT 4.44 10^6/uL (4.30-6.10); WHITE BLOOD COUNT 9.7 10^3/uL (4.0-10.0)
[2021-10-27 07:08] LABS: BLOOD UREA NITROGEN 43 MG/DL (7-18); CALCIUM LEVEL 7.8 MG/DL (8.8-10.2); CARBON DIOXIDE LEVEL 32 MEQ/L (21-32); CHLORIDE LEVEL 100 MEQ/L (98-107); CREATININE FOR GFR 1.15 MG/DL (0.70-1.30); GLOMERULAR FILTRATION RATE > 60.0 (>42); GLUCOSE, FASTING 311 MG/DL (70-100); POTASSIUM SERUM 4.3 MEQ/L (3.5-5.1); SODIUM LEVEL 139 MEQ/L (136-145)
[2021-10-27] MEDS: HumaLOG INSULIN (NovoLOG) PER UNIT SC SCH ×4 (07:47→20:32)
[2021-10-27] MEDS: cefTRIAXone SOD 2 GM in D5W MINI-BAG PLUS 50 ML IV SCH (07:47)
[2021-10-27 07:50] LABS: MAGNESIUM LEVEL 1.9 MG/DL (1.8-2.4)
[2021-10-27 08:17] LABS: CK-MB VALUE MASS 5.2 NG/ML (<3.6); MB/CK RELATIVE INDEX 4.77 (< OR =4)
[2021-10-27] MEDS: LEVEMIR (INSULIN DETEMIR) 1 UNITS/0.01ML SC SCH ×2 (09:26→20:49)
[2021-10-27] MEDS: APIXABAN 5 MG TAB (ELIQUIS) PO SCH ×2 (09:26→20:27)
[2021-10-27] MEDS: predniSONE 20 MG TAB PO SCH (09:26)
[2021-10-27] MEDS: ASPIRIN 81MG ENTERIC TABLET PO SCH (09:26)
[2021-10-27] MEDS: SODIUM CHLORIDE NASAL 0.65% SPRAY BTL (OCEAN) SCH ×3 (09:27→20:56)
[2021-10-27] MEDS: POTASSIUM CHLORIDE 10MEQ SR TABLET PO SCH (09:27)
[2021-10-27] MEDS: FUROSEMIDE injection 250 MG in D5W 225 ML IV SCH (17:29)
[2021-10-27] MEDS: SIMVASTATIN 40 MG TAB PO SCH (20:27)
[2021-10-27] MEDS ORDERED: MIDODRINE 5 MG TAB PO ONE (20:30)
[2021-10-27] MEDS: RAMELTEON 8 MG TAB (ROZEREM) PO PRN (20:33)
[2021-10-28] VITALS (26 sets, daily range): BP systolic 74–116; BP diastolic 56–87
[2021-10-28] MEDS: SODIUM CHLORIDE 0.9% NASAL GEL 15GM (AYR) SCH ×6 (01:56→20:24)
[2021-10-28] MEDS: LEVALBUTEROL 1.25 MG/0.5 ML CONCENTRATE NEB INH SCH ×6 (03:28→23:57)
[2021-10-28 05:38] LABS: ABG BASE EXCESS 7.1 (-2.0-2.0); ABG HCO3 30.5 MEQ/L (22.0-26.0); ABG O2 SATURATION 86.9 % (95.0-99.0); ABG PARTIAL PRESSURE CO2 38.7 mmHg (35.0-45.0); ABG PARTIAL PRESSURE O2 50.4 mmHg (75.0-100.0); ABG STANDARD HCO3 30.7 MEQ/L (22.0-26.0); ABG TOTAL CO2 31.7 MEQ/L (23.0-31.0); ABG pH (ARTERIAL) 7.514 UNITS (7.350-7.450)
[2021-10-28 05:39] LABS: HEMATOCRIT 39.3 % (42.0-52.0); MEAN CORPUSCULAR HEMOGLOBIN 31.3 pg (27.0-33.0); MEAN CORPUSCULAR HGB CONC 33.1 g/dl (32.0-36.5); MEAN CORPUSCULAR VOLUME 94.5 fl (80.0-96.0); PLATELET COUNT, AUTOMATED 123 10^3/uL (150-450); RED BLOOD COUNT 4.16 10^6/uL (4.30-6.10)
[2021-10-28 06:03] LABS: BLOOD UREA NITROGEN 35 MG/DL (7-18); CALCIUM LEVEL 7.4 MG/DL (8.8-10.2); CARBON DIOXIDE LEVEL 37 MEQ/L (21-32); CHLORIDE LEVEL 98 MEQ/L (98-107); CREATININE FOR GFR 0.99 MG/DL (0.70-1.30); GLOMERULAR FILTRATION RATE > 60.0 (>42); GLUCOSE, FASTING 77 MG/DL (70-100); POTASSIUM SERUM 3.5 MEQ/L (3.5-5.1); SODIUM LEVEL 140 MEQ/L (136-145)
[2021-10-28] MEDS: HumaLOG INSULIN (NovoLOG) PER UNIT SC SCH ×4 (07:17→20:15)
[2021-10-28] MEDS: cefTRIAXone SOD 2 GM in D5W MINI-BAG PLUS 50 ML IV SCH (08:08)
[2021-10-28] MEDS: APIXABAN 5 MG TAB (ELIQUIS) PO SCH ×2 (08:08→20:23)
[2021-10-28] MEDS: ASPIRIN 81MG ENTERIC TABLET PO SCH (08:08)
[2021-10-28] MEDS: SODIUM CHLORIDE NASAL 0.65% SPRAY BTL (OCEAN) SCH ×3 (08:09→20:24)
[2021-10-28] MEDS: predniSONE 20 MG TAB PO SCH (08:09)
[2021-10-28] MEDS: LEVEMIR (INSULIN DETEMIR) 1 UNITS/0.01ML SC SCH ×2 (08:09→20:23)
[2021-10-28] MEDS: MAGNESIUM OXIDE 400MG TAB (MAG-OX) PO SCH ×2 (08:09→20:24)
[2021-10-28] MEDS ORDERED: POTASSIUM CHLORIDE 10MEQ SR TABLET PO SCH (09:00)
[2021-10-28] MEDS ORDERED: LEVEMIR (INSULIN DETEMIR) 1 UNITS/0.01ML SC ONE (10:00)
[2021-10-28] MEDS: POTASSIUM CHLORIDE 10MEQ SR TABLET PO SCH (10:17)
[2021-10-28] MEDS: FUROSEMIDE injection 250 MG in D5W 225 ML IV SCH (17:39)
[2021-10-28] MEDS: SYMBICORT 160/4.5MCG INHALER 6GM INH SCH (19:27)
[2021-10-28] MEDS: SIMVASTATIN 40 MG TAB PO SCH (20:23)
[2021-10-28] MEDS: RAMELTEON 8 MG TAB (ROZEREM) PO PRN (20:23)
[2021-10-28] MEDS ORDERED: LEVEMIR (INSULIN DETEMIR) 1 UNITS/0.01ML SC SCH (21:00)
[2021-10-29] VITALS (21 sets, daily range): BP systolic 77–109; BP diastolic 50–75; O2SAT 94
[2021-10-29] MEDS: SODIUM CHLORIDE 0.9% NASAL GEL 15GM (AYR) SCH ×6 (02:33→21:29)
[2021-10-29] MEDS: LEVALBUTEROL 1.25 MG/0.5 ML CONCENTRATE NEB INH SCH ×3 (03:53→12:11)
[2021-10-29 05:25] LABS: HEMATOCRIT 39.1 % (42.0-52.0); MEAN CORPUSCULAR HEMOGLOBIN 31.5 pg (27.0-33.0); MEAN CORPUSCULAR HGB CONC 33.2 g/dl (32.0-36.5); MEAN CORPUSCULAR VOLUME 94.7 fl (80.0-96.0); PLATELET COUNT, AUTOMATED 114 10^3/uL (150-450); RED BLOOD COUNT 4.13 10^6/uL (4.30-6.10); WHITE BLOOD COUNT 10.1 10^3/uL (4.0-10.0)
[2021-10-29 05:47] LABS: BLOOD UREA NITROGEN 34 MG/DL (7-18); CALCIUM LEVEL 7.3 MG/DL (8.8-10.2); CARBON DIOXIDE LEVEL 37 MEQ/L (21-32); CHLORIDE LEVEL 96 MEQ/L (98-107); CREATININE FOR GFR 1.02 MG/DL (0.70-1.30); GLOMERULAR FILTRATION RATE > 60.0 (>42); GLUCOSE, FASTING 220 MG/DL (70-100); POTASSIUM SERUM 3.5 MEQ/L (3.5-5.1); SODIUM LEVEL 137 MEQ/L (136-145)
[2021-10-29] MEDS: SYMBICORT 160/4.5MCG INHALER 6GM INH SCH ×2 (07:24→19:32)
[2021-10-29] MEDS: TIOTROPIUM INHALER/CAPSULE (SPIRIVA) INH SCH (07:24)
[2021-10-29] MEDS ORDERED: FUROSEMIDE injection 250 MG in D5W 225 ML IV SCH (08:00)
[2021-10-29] MEDS: SODIUM CHLORIDE NASAL 0.65% SPRAY BTL (OCEAN) SCH ×3 (08:24→21:28)
[2021-10-29] MEDS: APIXABAN 5 MG TAB (ELIQUIS) PO SCH ×2 (08:25→21:24)
[2021-10-29] MEDS: MAGNESIUM OXIDE 400MG TAB (MAG-OX) PO SCH ×2 (08:25→21:25)
[2021-10-29] MEDS: POTASSIUM CHLORIDE 10MEQ SR TABLET PO SCH (08:25)
[2021-10-29] MEDS: predniSONE 20 MG TAB PO SCH (08:25)
[2021-10-29] MEDS: ASPIRIN 81MG ENTERIC TABLET PO SCH (08:25)
[2021-10-29] MEDS: cefTRIAXone SOD 2 GM in D5W MINI-BAG PLUS 50 ML IV SCH (08:26)
[2021-10-29] MEDS: HumaLOG INSULIN (NovoLOG) PER UNIT SC SCH ×4 (08:26→21:00)
[2021-10-29] MEDS: FUROSEMIDE injection 250 MG in D5W 225 ML IV SCH ×2 (08:27→17:30)
[2021-10-29] MEDS: PANTOPRAZOLE 40MG TAB (PROTONIX) PO SCH (11:51)
[2021-10-29] MEDS: hydrOXYzine 25 MG TAB PO PRN (17:47)
[2021-10-29] MEDS: LEVEMIR (INSULIN DETEMIR) 1 UNITS/0.01ML SC SCH (21:00)
[2021-10-29] MEDS: SIMVASTATIN 40 MG TAB PO SCH (21:25)
[2021-10-29] MEDS: RAMELTEON 8 MG TAB (ROZEREM) PO PRN (21:25)
[2021-10-30] VITALS (12 sets, daily range): BP systolic 85–118; BP diastolic 55–80
[2021-10-30] MEDS: hydrOXYzine 25 MG TAB PO PRN ×2 (01:43→08:50)
[2021-10-30] MEDS: SODIUM CHLORIDE 0.9% NASAL GEL 15GM (AYR) SCH ×6 (01:44→21:19)
[2021-10-30 05:20] LABS: BASO % 0.1 % (0.0-1.0); EOS # 0.4 10^3/uL (0.0-0.5); EOS % 3.4 % (0.0-3.0); HEMATOCRIT 41.1 % (42.0-52.0); HEMOGLOBIN 13.7 g/dl (13.5-17.5); LYMPH # 0.9 10^3/uL (1.5-5.0); LYMPH % 8.1 % (24.0-44.0); MEAN CORPUSCULAR HEMOGLOBIN 31.2 pg (27.0-33.0); MEAN CORPUSCULAR HGB CONC 33.3 g/dl (32.0-36.5); MEAN CORPUSCULAR VOLUME 93.6 fl (80.0-96.0); MONO # 0.4 10^3/uL (0.0-0.8); MONO % 3.5 % (2.0-8.0); NEUTROPHILS # 9.2 10^3/uL (1.5-8.5); NEUTROPHILS % 84.2 % (36.0-66.0); PLATELET COUNT, AUTOMATED 104 10^3/uL (150-450); RED BLOOD COUNT 4.39 10^6/uL (4.30-6.10)
[2021-10-30 05:56] LABS: ALBUMIN 2.8 GM/DL (3.2-5.2); ALT/SGPT 85 U/L (12-78); BILIRUBIN,TOTAL 1.6 MG/DL (0.2-1.0); BLOOD UREA NITROGEN 36 MG/DL (7-18); CALCIUM LEVEL 7.2 MG/DL (8.8-10.2); CARBON DIOXIDE LEVEL 35 MEQ/L (21-32); CHLORIDE LEVEL 94 MEQ/L (98-107); CREATININE FOR GFR 1.09 MG/DL (0.70-1.30); GLOMERULAR FILTRATION RATE > 60.0 (>42); GLUCOSE, FASTING 234 MG/DL (70-100); MAGNESIUM LEVEL 2.3 MG/DL (1.8-2.4); POTASSIUM SERUM 4.3 MEQ/L (3.5-5.1); SODIUM LEVEL 133 MEQ/L (136-145); TOTAL PROTEIN 5.4 GM/DL (6.4-8.2)
[2021-10-30] MEDS: MAGNESIUM OXIDE 400MG TAB (MAG-OX) PO SCH ×2 (08:50→21:16)
[2021-10-30] MEDS: POTASSIUM CHLORIDE 10MEQ SR TABLET PO SCH (08:50)
[2021-10-30] MEDS: HumaLOG INSULIN (NovoLOG) PER UNIT SC SCH ×4 (08:50→21:17)
[2021-10-30] MEDS: APIXABAN 5 MG TAB (ELIQUIS) PO SCH ×2 (08:50→21:15)
[2021-10-30] MEDS: predniSONE 20 MG TAB PO SCH (08:51)
[2021-10-30] MEDS: ASPIRIN 81MG ENTERIC TABLET PO SCH (08:51)
[2021-10-30] MEDS: cefTRIAXone SOD 2 GM in D5W MINI-BAG PLUS 50 ML IV SCH (08:52)
[2021-10-30] MEDS: SODIUM CHLORIDE NASAL 0.65% SPRAY BTL (OCEAN) SCH ×3 (08:52→21:20)
[2021-10-30] MEDS: SYMBICORT 160/4.5MCG INHALER 6GM INH SCH ×2 (09:02→20:03)
[2021-10-30] MEDS: TIOTROPIUM INHALER/CAPSULE (SPIRIVA) INH SCH (09:02)
[2021-10-30] MEDS ORDERED: HumaLOG INSULIN (NovoLOG) PER UNIT SC ONE (12:30)
[2021-10-30] MEDS: PANTOPRAZOLE 40MG TAB (PROTONIX) PO SCH (12:55)
[2021-10-30] MEDS: FUROSEMIDE 40 MG TAB PO SCH (17:32)
[2021-10-30] MEDS: SIMVASTATIN 40 MG TAB PO SCH (21:16)
[2021-10-30] MEDS: RAMELTEON 8 MG TAB (ROZEREM) PO PRN (21:16)
[2021-10-30] MEDS: LEVEMIR (INSULIN DETEMIR) 1 UNITS/0.01ML SC SCH (21:18)
[2021-10-30 22:05] LABS: BASO % 0.1 % (0.0-1.0); EOS # 0.2 10^3/uL (0.0-0.5); EOS % 1.9 % (0.0-3.0); HEMATOCRIT 37.1 % (42.0-52.0); HEMOGLOBIN 12.4 g/dl (13.5-17.5); LYMPH # 0.6 10^3/uL (1.5-5.0); LYMPH % 6.2 % (24.0-44.0); MEAN CORPUSCULAR HEMOGLOBIN 31.2 pg (27.0-33.0); MEAN CORPUSCULAR HGB CONC 33.4 g/dl (32.0-36.5); MEAN CORPUSCULAR VOLUME 93.2 fl (80.0-96.0); MONO # 0.3 10^3/uL (0.0-0.8); MONO % 2.6 % (2.0-8.0); NEUTROPHILS # 8.4 10^3/uL (1.5-8.5); NEUTROPHILS % 88.5 % (36.0-66.0); PLATELET COUNT, AUTOMATED 105 10^3/uL (150-450); RED BLOOD COUNT 3.98 10^6/uL (4.30-6.10); WHITE BLOOD COUNT 9.5 10^3/uL (4.0-10.0)
[2021-10-30 22:39] LABS: ALBUMIN 2.7 GM/DL (3.2-5.2); ALT/SGPT 72 U/L (12-78); BILIRUBIN,TOTAL 1.2 MG/DL (0.2-1.0); BLOOD UREA NITROGEN 35 MG/DL (7-18); CALCIUM LEVEL 7.4 MG/DL (8.8-10.2); CARBON DIOXIDE LEVEL 32 MEQ/L (21-32); CHLORIDE LEVEL 96 MEQ/L (98-107); CREATININE FOR GFR 1.11 MG/DL (0.70-1.30); GLOMERULAR FILTRATION RATE > 60.0 (>42); GLUCOSE, FASTING 294 MG/DL (70-100); POTASSIUM SERUM 4.5 MEQ/L (3.5-5.1); SODIUM LEVEL 132 MEQ/L (136-145); TOTAL PROTEIN 5.1 GM/DL (6.4-8.2)
[2021-10-30 22:49] LABS: HEPATITIS B SURFACE ANTIBODY NEGATIVE (POSITIVE)
[2021-10-30 22:59] LABS: HEPATITIS B SURFACE ANTIGEN NEGATIVE (NEGATIVE)
[2021-10-30 23:27] LABS: HEPATITIS C VIRUS ABY INDEX 0.1 INDEX (<0.8)
[2021-10-30 23:28] LABS: HEPATITIS B CORE ANTIBODY IGM NEGATIVE (NEGATIVE)
[2021-10-30 23:29] LABS: HIV SCREEN CENTAUR EXPOSED NEGATIVE (NEGATIVE)
[2021-10-31] VITALS (11 sets, daily range): BP systolic 101–126; BP diastolic 59–81
[2021-10-31] MEDS: SODIUM CHLORIDE 0.9% NASAL GEL 15GM (AYR) SCH ×6 (01:09→20:08)
[2021-10-31 05:12] LABS: HEMATOCRIT 37.2 % (42.0-52.0); HEMOGLOBIN 12.5 g/dl (13.5-17.5); MEAN CORPUSCULAR HEMOGLOBIN 30.9 pg (27.0-33.0); MEAN CORPUSCULAR HGB CONC 33.6 g/dl (32.0-36.5); MEAN CORPUSCULAR VOLUME 92.1 fl (80.0-96.0); PLATELET COUNT, AUTOMATED 105 10^3/uL (150-450); RED BLOOD COUNT 4.04 10^6/uL (4.30-6.10); WHITE BLOOD COUNT 8.7 10^3/uL (4.0-10.0)
[2021-10-31] MEDS: hydrOXYzine 25 MG TAB PO PRN (05:31)
[2021-10-31 05:33] LABS: BLOOD UREA NITROGEN 31 MG/DL (7-18); CALCIUM LEVEL 7.3 MG/DL (8.8-10.2); CARBON DIOXIDE LEVEL 35 MEQ/L (21-32); CHLORIDE LEVEL 97 MEQ/L (98-107); CREATININE FOR GFR 0.89 MG/DL (0.70-1.30); GLOMERULAR FILTRATION RATE > 60.0 (>42); GLUCOSE, FASTING 140 MG/DL (70-100); POTASSIUM SERUM 3.9 MEQ/L (3.5-5.1); SODIUM LEVEL 133 MEQ/L (136-145)
[2021-10-31] MEDS: SYMBICORT 160/4.5MCG INHALER 6GM INH SCH ×2 (07:41→19:19)
[2021-10-31] MEDS: TIOTROPIUM INHALER/CAPSULE (SPIRIVA) INH SCH (07:41)
[2021-10-31] MEDS: HumaLOG INSULIN (NovoLOG) PER UNIT SC SCH ×4 (09:09→20:07)
[2021-10-31] MEDS: cefTRIAXone SOD 2 GM in D5W MINI-BAG PLUS 50 ML IV SCH (09:09)
[2021-10-31] MEDS: POTASSIUM CHLORIDE 10MEQ SR TABLET PO SCH (09:10)
[2021-10-31] MEDS: ASPIRIN 81MG ENTERIC TABLET PO SCH (09:10)
[2021-10-31] MEDS: predniSONE 20 MG TAB PO SCH (09:10)
[2021-10-31] MEDS: PANTOPRAZOLE 40MG TAB (PROTONIX) PO SCH (09:10)
[2021-10-31] MEDS: APIXABAN 5 MG TAB (ELIQUIS) PO SCH ×2 (09:11→20:06)
[2021-10-31] MEDS: MAGNESIUM OXIDE 400MG TAB (MAG-OX) PO SCH ×2 (09:11→20:06)
[2021-10-31] MEDS: FUROSEMIDE 40 MG TAB PO SCH (09:11)
[2021-10-31] MEDS: SODIUM CHLORIDE NASAL 0.65% SPRAY BTL (OCEAN) SCH ×3 (09:12→20:08)
[2021-10-31] MEDS: NYSTATIN 500,000 U/5 ML SUSP UDC SS SCH ×4 (10:31→20:06)
[2021-10-31] MEDS: SIMVASTATIN 40 MG TAB PO SCH (20:06)
[2021-10-31] MEDS: LEVEMIR (INSULIN DETEMIR) 1 UNITS/0.01ML SC SCH (20:07)
[2021-11-01] MEDS: SODIUM CHLORIDE 0.9% NASAL GEL 15GM (AYR) SCH ×7 (00:11→23:31)
[2021-11-01 00:20] VITALS: BP 106/61
[2021-11-01 04:20] VITALS: BP 110/70
[2021-11-01 05:37] LABS: HEMATOCRIT 36.1 % (42.0-52.0); HEMOGLOBIN 12.3 g/dl (13.5-17.5); MEAN CORPUSCULAR HEMOGLOBIN 31.4 pg (27.0-33.0); MEAN CORPUSCULAR HGB CONC 34.1 g/dl (32.0-36.5); MEAN CORPUSCULAR VOLUME 92.1 fl (80.0-96.0); PLATELET COUNT, AUTOMATED 108 10^3/uL (150-450); RED BLOOD COUNT 3.92 10^6/uL (4.30-6.10)
[2021-11-01 06:05] LABS: BLOOD UREA NITROGEN 30 MG/DL (7-18); CALCIUM LEVEL 7.7 MG/DL (8.8-10.2); CARBON DIOXIDE LEVEL 32 MEQ/L (21-32); CHLORIDE LEVEL 101 MEQ/L (98-107); CREATININE FOR GFR 0.76 MG/DL (0.70-1.30); GLOMERULAR FILTRATION RATE > 60.0 (>42); GLUCOSE, FASTING 55 MG/DL (70-100); POTASSIUM SERUM 4.2 MEQ/L (3.5-5.1); SODIUM LEVEL 138 MEQ/L (136-145)
[2021-11-01] MEDS: TIOTROPIUM INHALER/CAPSULE (SPIRIVA) INH SCH (07:17)
[2021-11-01] MEDS: SYMBICORT 160/4.5MCG INHALER 6GM INH SCH ×2 (07:18→19:24)
[2021-11-01] MEDS: HumaLOG INSULIN (NovoLOG) PER UNIT SC SCH ×4 (07:30→19:59)
[2021-11-01 07:49] VITALS: BP 127/90
[2021-11-01] MEDS: FUROSEMIDE 40 MG TAB PO SCH (08:23)
[2021-11-01] MEDS: APIXABAN 5 MG TAB (ELIQUIS) PO SCH ×2 (08:23→19:48)
[2021-11-01] MEDS: predniSONE 10 MG TAB PO SCH (08:23)
[2021-11-01] MEDS: PANTOPRAZOLE 40MG TAB (PROTONIX) PO SCH (08:23)
[2021-11-01] MEDS: ASPIRIN 81MG ENTERIC TABLET PO SCH (08:23)
[2021-11-01] MEDS: SODIUM CHLORIDE NASAL 0.65% SPRAY BTL (OCEAN) SCH ×3 (08:24→19:50)
[2021-11-01] MEDS: cefTRIAXone SOD 2 GM in D5W MINI-BAG PLUS 50 ML IV SCH (08:24)
[2021-11-01] MEDS: MAGNESIUM OXIDE 400MG TAB (MAG-OX) PO SCH ×2 (08:24→19:49)
[2021-11-01] MEDS: POTASSIUM CHLORIDE 10MEQ SR TABLET PO SCH (08:25)
[2021-11-01] MEDS: NYSTATIN 500,000 U/5 ML SUSP UDC SS SCH ×4 (08:31→19:48)
[2021-11-01 12:26] VITALS: BP 108/66
[2021-11-01 15:56] VITALS: BP 114/72
[2021-11-01] MEDS: SIMVASTATIN 40 MG TAB PO SCH (19:49)
[2021-11-01] MEDS: LEVEMIR (INSULIN DETEMIR) 1 UNITS/0.01ML SC SCH (19:49)
[2021-11-01 20:00] VITALS: BP 101/59
[2021-11-02] VITALS: BP 112/72
[2021-11-02] MEDS: hydrOXYzine 25 MG TAB PO PRN (00:55)
[2021-11-02 04:00] VITALS: BP 106/65
[2021-11-02 05:10] LABS: HEMATOCRIT 37.4 % (42.0-52.0); HEMOGLOBIN 12.6 g/dl (13.5-17.5); MEAN CORPUSCULAR HEMOGLOBIN 30.8 pg (27.0-33.0); MEAN CORPUSCULAR HGB CONC 33.7 g/dl (32.0-36.5); MEAN CORPUSCULAR VOLUME 91.4 fl (80.0-96.0); PLATELET COUNT, AUTOMATED 128 10^3/uL (150-450); RED BLOOD COUNT 4.09 10^6/uL (4.30-6.10)
[2021-11-02 05:32] LABS: BLOOD UREA NITROGEN 29 MG/DL (7-18); CALCIUM LEVEL 7.3 MG/DL (8.8-10.2); CARBON DIOXIDE LEVEL 30 MEQ/L (21-32); CHLORIDE LEVEL 100 MEQ/L (98-107); GLOMERULAR FILTRATION RATE > 60.0 (>42); GLUCOSE, FASTING 161 MG/DL (70-100); POTASSIUM SERUM 4.4 MEQ/L (3.5-5.1); SODIUM LEVEL 135 MEQ/L (136-145)
[2021-11-02] MEDS: SODIUM CHLORIDE 0.9% NASAL GEL 15GM (AYR) SCH ×5 (05:32→21:17)
[2021-11-02] MEDS: SYMBICORT 160/4.5MCG INHALER 6GM INH SCH ×2 (07:16→18:56)
[2021-11-02] MEDS: TIOTROPIUM INHALER/CAPSULE (SPIRIVA) INH SCH (07:16)
[2021-11-02 08:25] VITALS: BP 114/68
[2021-11-02] MEDS: FUROSEMIDE 40 MG TAB PO SCH (09:24)
[2021-11-02] MEDS: APIXABAN 5 MG TAB (ELIQUIS) PO SCH ×2 (09:24→21:15)
[2021-11-02] MEDS: HumaLOG INSULIN (NovoLOG) PER UNIT SC SCH ×4 (09:24→21:15)
[2021-11-02] MEDS: ASPIRIN 81MG ENTERIC TABLET PO SCH (09:24)
[2021-11-02] MEDS: predniSONE 10 MG TAB PO SCH (09:24)
[2021-11-02] MEDS: MAGNESIUM OXIDE 400MG TAB (MAG-OX) PO SCH ×2 (09:24→21:16)
[2021-11-02] MEDS: PANTOPRAZOLE 40MG TAB (PROTONIX) PO SCH (09:24)
[2021-11-02] MEDS: SODIUM CHLORIDE NASAL 0.65% SPRAY BTL (OCEAN) SCH ×3 (09:25→21:17)
[2021-11-02] MEDS: NYSTATIN 500,000 U/5 ML SUSP UDC SS SCH ×4 (09:25→21:16)
[2021-11-02] MEDS: cefTRIAXone SOD 2 GM in D5W MINI-BAG PLUS 50 ML IV SCH (09:25)
[2021-11-02] MEDS: POTASSIUM CHLORIDE 10MEQ SR TABLET PO SCH (09:25)
[2021-11-02 12:00] VITALS: BP 106/57
[2021-11-02 16:00] VITALS: BP 108/66
[2021-11-02 20:00] VITALS: BP 98/56
[2021-11-02] MEDS: methylPREDNISolone 125MG 2ML VIAL IV SCH (21:14)
[2021-11-02] MEDS: LEVEMIR (INSULIN DETEMIR) 1 UNITS/0.01ML SC SCH (21:15)
[2021-11-02] MEDS: SIMVASTATIN 40 MG TAB PO SCH (21:16)
[2021-11-03] VITALS: BP 120/71
[2021-11-03] MEDS: SODIUM CHLORIDE 0.9% NASAL GEL 15GM (AYR) SCH ×7 (01:00→23:45)
[2021-11-03 04:00] VITALS: BP 110/56
[2021-11-03 07:01] LABS: HEMATOCRIT 37.1 % (42.0-52.0); HEMOGLOBIN 12.3 g/dl (13.5-17.5); MEAN CORPUSCULAR HGB CONC 33.2 g/dl (32.0-36.5); MEAN CORPUSCULAR VOLUME 93.5 fl (80.0-96.0); PLATELET COUNT, AUTOMATED 134 10^3/uL (150-450); RED BLOOD COUNT 3.97 10^6/uL (4.30-6.10); WHITE BLOOD COUNT 8.5 10^3/uL (4.0-10.0)
[2021-11-03 07:13] LABS: BLOOD UREA NITROGEN 29 MG/DL (7-18); CALCIUM LEVEL 7.5 MG/DL (8.8-10.2); CARBON DIOXIDE LEVEL 31 MEQ/L (21-32); CHLORIDE LEVEL 100 MEQ/L (98-107); CREATININE FOR GFR 0.94 MG/DL (0.70-1.30); GLOMERULAR FILTRATION RATE > 60.0 (>42); GLUCOSE, FASTING 330 MG/DL (70-100); POTASSIUM SERUM 4.8 MEQ/L (3.5-5.1); SODIUM LEVEL 134 MEQ/L (136-145)
[2021-11-03 08:00] VITALS: BP 112/68
[2021-11-03] MEDS: TIOTROPIUM INHALER/CAPSULE (SPIRIVA) INH SCH (08:06)
[2021-11-03] MEDS: SYMBICORT 160/4.5MCG INHALER 6GM INH SCH ×2 (08:07→19:12)
[2021-11-03] MEDS: ASPIRIN 81MG ENTERIC TABLET PO SCH (08:11)
[2021-11-03] MEDS: PANTOPRAZOLE 40MG TAB (PROTONIX) PO SCH (08:11)
[2021-11-03] MEDS: FUROSEMIDE 40 MG TAB PO SCH (08:12)
[2021-11-03] MEDS: APIXABAN 5 MG TAB (ELIQUIS) PO SCH ×2 (08:12→22:01)
[2021-11-03] MEDS: MAGNESIUM OXIDE 400MG TAB (MAG-OX) PO SCH ×2 (08:12→22:01)
[2021-11-03] MEDS: HumaLOG INSULIN (NovoLOG) PER UNIT SC SCH ×4 (08:13→22:02)
[2021-11-03] MEDS: SODIUM CHLORIDE NASAL 0.65% SPRAY BTL (OCEAN) SCH ×3 (08:13→22:00)
[2021-11-03] MEDS: NYSTATIN 500,000 U/5 ML SUSP UDC SS SCH ×4 (08:13→22:01)
[2021-11-03] MEDS: methylPREDNISolone 125MG 2ML VIAL IV SCH ×2 (08:13→22:00)
[2021-11-03 12:00] VITALS: BP 105/65
[2021-11-03 16:00] VITALS: BP 113/64
[2021-11-03 20:00] VITALS: BP 114/66
[2021-11-03] MEDS: SIMVASTATIN 40 MG TAB PO SCH (22:00)
[2021-11-03] MEDS: LEVEMIR (INSULIN DETEMIR) 1 UNITS/0.01ML SC SCH (22:01)
[2021-11-04] VITALS: BP 112/62
[2021-11-04 04:00] VITALS: BP 118/75
[2021-11-04] MEDS: SODIUM CHLORIDE 0.9% NASAL GEL 15GM (AYR) SCH ×5 (04:40→21:00)
[2021-11-04 06:04] LABS: HEMATOCRIT 40.5 % (42.0-52.0); HEMOGLOBIN 13.1 g/dl (13.5-17.5); MEAN CORPUSCULAR HEMOGLOBIN 30.7 pg (27.0-33.0); MEAN CORPUSCULAR HGB CONC 32.3 g/dl (32.0-36.5); MEAN CORPUSCULAR VOLUME 94.8 fl (80.0-96.0); PLATELET COUNT, AUTOMATED 145 10^3/uL (150-450); RED BLOOD COUNT 4.27 10^6/uL (4.30-6.10); WHITE BLOOD COUNT 11.4 10^3/uL (4.0-10.0)
[2021-11-04 06:21] LABS: BLOOD UREA NITROGEN 32 MG/DL (7-18); CARBON DIOXIDE LEVEL 34 MEQ/L (21-32); CHLORIDE LEVEL 100 MEQ/L (98-107); CREATININE FOR GFR 0.97 MG/DL (0.70-1.30); GLOMERULAR FILTRATION RATE > 60.0 (>42); GLUCOSE, FASTING 350 MG/DL (70-100); POTASSIUM SERUM 4.9 MEQ/L (3.5-5.1); SODIUM LEVEL 138 MEQ/L (136-145)
[2021-11-04 08:00] VITALS: BP 119/85
[2021-11-04] MEDS: methylPREDNISolone 125MG 2ML VIAL IV SCH ×2 (08:11→21:42)
[2021-11-04] MEDS: ASPIRIN 81MG ENTERIC TABLET PO SCH (08:11)
[2021-11-04] MEDS: APIXABAN 5 MG TAB (ELIQUIS) PO SCH ×2 (08:11→21:42)
[2021-11-04] MEDS: HumaLOG INSULIN (NovoLOG) PER UNIT SC SCH ×4 (08:11→21:43)
[2021-11-04] MEDS: PANTOPRAZOLE 40MG TAB (PROTONIX) PO SCH (08:11)
[2021-11-04] MEDS: FUROSEMIDE 40 MG TAB PO SCH (08:12)
[2021-11-04] MEDS: MAGNESIUM OXIDE 400MG TAB (MAG-OX) PO SCH ×2 (08:12→21:42)
[2021-11-04] MEDS: NYSTATIN 500,000 U/5 ML SUSP UDC SS SCH ×4 (08:12→21:42)
[2021-11-04] MEDS: SODIUM CHLORIDE NASAL 0.65% SPRAY BTL (OCEAN) SCH ×3 (08:14→21:43)
[2021-11-04] MEDS: SYMBICORT 160/4.5MCG INHALER 6GM INH SCH ×2 (08:33→20:07)
[2021-11-04] MEDS: TIOTROPIUM INHALER/CAPSULE (SPIRIVA) INH SCH (08:33)
[2021-11-04 12:00] VITALS: BP 145/85
[2021-11-04 16:00] VITALS: BP 113/74
[2021-11-04 20:00] VITALS: BP 115/76
[2021-11-04] MEDS: SIMVASTATIN 40 MG TAB PO SCH (21:42)
[2021-11-04] MEDS: LEVEMIR (INSULIN DETEMIR) 1 UNITS/0.01ML SC SCH (21:43)
[2021-11-05] VITALS: BP 129/82
[2021-11-05] MEDS: SODIUM CHLORIDE 0.9% NASAL GEL 15GM (AYR) SCH ×6 (01:00→20:19)
[2021-11-05 04:00] VITALS: BP 140/87
[2021-11-05] MEDS: TIOTROPIUM INHALER/CAPSULE (SPIRIVA) INH SCH (07:36)
[2021-11-05] MEDS: SYMBICORT 160/4.5MCG INHALER 6GM INH SCH ×2 (07:36→20:16)
[2021-11-05 08:00] VITALS: BP 121/71
[2021-11-05] MEDS: ASPIRIN 81MG ENTERIC TABLET PO SCH (08:19)
[2021-11-05] MEDS: MAGNESIUM OXIDE 400MG TAB (MAG-OX) PO SCH ×2 (08:19→20:18)
[2021-11-05] MEDS: FUROSEMIDE 40 MG TAB PO SCH (08:19)
[2021-11-05] MEDS: PANTOPRAZOLE 40MG TAB (PROTONIX) PO SCH (08:19)
[2021-11-05] MEDS: NYSTATIN 500,000 U/5 ML SUSP UDC SS SCH ×4 (08:19→20:18)
[2021-11-05] MEDS: APIXABAN 5 MG TAB (ELIQUIS) PO SCH ×2 (08:19→20:18)
[2021-11-05] MEDS: methylPREDNISolone 125MG 2ML VIAL IV SCH (08:20)
[2021-11-05] MEDS: SODIUM CHLORIDE NASAL 0.65% SPRAY BTL (OCEAN) SCH ×3 (08:20→20:19)
[2021-11-05] MEDS: HumaLOG INSULIN (NovoLOG) PER UNIT SC SCH ×4 (08:21→20:18)
[2021-11-05 09:52] LABS: HEMATOCRIT 41.3 % (42.0-52.0); HEMOGLOBIN 13.4 g/dl (13.5-17.5); MEAN CORPUSCULAR HEMOGLOBIN 30.9 pg (27.0-33.0); MEAN CORPUSCULAR HGB CONC 32.4 g/dl (32.0-36.5); MEAN CORPUSCULAR VOLUME 95.4 fl (80.0-96.0); PLATELET COUNT, AUTOMATED 170 10^3/uL (150-450); RED BLOOD COUNT 4.33 10^6/uL (4.30-6.10); WHITE BLOOD COUNT 12.4 10^3/uL (4.0-10.0)
[2021-11-05 10:45] LABS: BLOOD UREA NITROGEN 42 MG/DL (7-18); CARBON DIOXIDE LEVEL 33 MEQ/L (21-32); CHLORIDE LEVEL 97 MEQ/L (98-107); CREATININE FOR GFR 1.08 MG/DL (0.70-1.30); GLOMERULAR FILTRATION RATE > 60.0 (>42); GLUCOSE, FASTING 304 MG/DL (70-100); POTASSIUM SERUM 4.1 MEQ/L (3.5-5.1); SODIUM LEVEL 135 MEQ/L (136-145)
[2021-11-05 12:00] VITALS: BP 134/72
[2021-11-05] MEDS ORDERED: PRED10TA2 PO (14:55)
[2021-11-05] MEDS ORDERED: VENTAER INH (14:55)
[2021-11-05] MEDS ORDERED: PANT40TA29 PO (14:55)
[2021-11-05] MEDS ORDERED: FURO40TA2 PO ×2 (14:55→15:01)
[2021-11-05] MEDS ORDERED: METO25TA PO (14:55)
[2021-11-05] MEDS ORDERED: SPIR12.9 INH (14:55)
[2021-11-05] MEDS ORDERED: SYMB16INH INH (14:55)
[2021-11-05] MEDS: TAMSULOSIN 0.4 MG CAP PO SCH (16:46)
[2021-11-05 20:15] VITALS: BP 117/74
[2021-11-05] MEDS: LEVEMIR (INSULIN DETEMIR) 1 UNITS/0.01ML SC SCH (20:18)
[2021-11-05] MEDS: SIMVASTATIN 40 MG TAB PO SCH (20:18)
[2021-11-05] MEDS: methylPREDNISolone 40MG 1ML VIAL IV SCH (20:19)
[2021-11-06] VITALS: BP 129/98
[2021-11-06] MEDS: SODIUM CHLORIDE 0.9% NASAL GEL 15GM (AYR) SCH ×4 (01:21→12:56)
[2021-11-06 04:20] VITALS: BP 132/78
[2021-11-06 05:19] LABS: HEMATOCRIT 41.2 % (42.0-52.0); HEMOGLOBIN 13.6 g/dl (13.5-17.5); MEAN CORPUSCULAR HEMOGLOBIN 30.6 pg (27.0-33.0); MEAN CORPUSCULAR VOLUME 92.6 fl (80.0-96.0); PLATELET COUNT, AUTOMATED 177 10^3/uL (150-450); RED BLOOD COUNT 4.45 10^6/uL (4.30-6.10)
[2021-11-06 05:41] LABS: BLOOD UREA NITROGEN 46 MG/DL (7-18); CALCIUM LEVEL 7.9 MG/DL (8.8-10.2); CARBON DIOXIDE LEVEL 30 MEQ/L (21-32); CHLORIDE LEVEL 99 MEQ/L (98-107); CREATININE FOR GFR 1.08 MG/DL (0.70-1.30); GLOMERULAR FILTRATION RATE > 60.0 (>42); GLUCOSE, FASTING 359 MG/DL (70-100); POTASSIUM SERUM 4.5 MEQ/L (3.5-5.1); SODIUM LEVEL 135 MEQ/L (136-145)
[2021-11-06] MEDS: SYMBICORT 160/4.5MCG INHALER 6GM INH SCH (07:20)
[2021-11-06] MEDS: TIOTROPIUM INHALER/CAPSULE (SPIRIVA) INH SCH (07:20)
[2021-11-06] MEDS ORDERED: FLOM0.4C39 PO (07:34)
[2021-11-06] MEDS ORDERED: DOXY-350 PO (07:41)
[2021-11-06] MEDS ORDERED: BACITAB PO (07:41)
[2021-11-06] MEDS: TAMSULOSIN 0.4 MG CAP PO SCH (08:13)
[2021-11-06] MEDS: FUROSEMIDE 40 MG TAB PO SCH (08:13)
[2021-11-06] MEDS: MAGNESIUM OXIDE 400MG TAB (MAG-OX) PO SCH (08:13)
[2021-11-06] MEDS: ASPIRIN 81MG ENTERIC TABLET PO SCH (08:13)
[2021-11-06] MEDS: NYSTATIN 500,000 U/5 ML SUSP UDC SS SCH ×2 (08:13→12:56)
[2021-11-06] MEDS: methylPREDNISolone 40MG 1ML VIAL IV SCH (08:14)
[2021-11-06] MEDS: PANTOPRAZOLE 40MG TAB (PROTONIX) PO SCH (08:14)
[2021-11-06] MEDS: APIXABAN 5 MG TAB (ELIQUIS) PO SCH (08:14)
[2021-11-06] MEDS: HumaLOG INSULIN (NovoLOG) PER UNIT SC SCH ×2 (08:15→12:56)
[2021-11-06] MEDS: SODIUM CHLORIDE NASAL 0.65% SPRAY BTL (OCEAN) SCH (08:15)
[2021-11-06 08:20] VITALS: BP 132/76
[2021-11-06] MEDS ORDERED: LISINOPRIL *2.5 MG* TAB PO SCH (09:00)
[2021-11-06] MEDS ORDERED: CARVedilol 6.25 MG TAB PO SCH (09:00)
[2021-11-06] MEDS ORDERED: CORE6.25 PO (09:52)
[2021-11-06] MEDS ORDERED: LISI2.5T9 PO (09:52)
== END 2021-11-06 13:41 | disposition home health service (06) | DRG 177 ==
LOC: EDBD 12:57 → M ED 12:57 → M ED INP 12:58 → M MSPAV 18:38 → OBSVTOIN 10-18 07:22 → M PCU 10-25 21:13 → M ICU 10-27 01:40 → M PCU 10-31 19:30
PROVIDERS: ADMIT Internal Medicine; ATTEND General Practice
PROC: 0W993ZZ Drainage of Right Pleural Cavity, Percutaneous Approach (ICD-10-PCS; principal; 2021-10-24 16:00)
DX: J15.5 Pneumonia due to Escherichia coli (principal); J96.21 Acute and chronic respiratory failure with hypoxia; I50.23 Acute on chronic systolic (congestive) heart failure; J44.1 Chronic obstructive pulmonary disease with (acute) exacerbation; I48.20 Chronic atrial fibrillation, unspecified; J90 Pleural effusion, not elsewhere classified; J44.0 Chronic obstructive pulmonary disease with (acute) lower respiratory infection; I11.0 Hypertensive heart disease with heart failure; J15.0 Pneumonia due to Klebsiella pneumoniae; I25.10 Atherosclerotic heart disease of native coronary artery without angina pectoris; Z95.5 Presence of coronary angioplasty implant and graft; Z79.01 Long term (current) use of anticoagulants; Z99.81 Dependence on supplemental oxygen; G47.33 Obstructive sleep apnea (adult) (pediatric); Z95.0 Presence of cardiac pacemaker; F17.210 Nicotine dependence, cigarettes, uncomplicated; E78.5 Hyperlipidemia, unspecified; Z66 Do not resuscitate; Z79.82 Long term (current) use of aspirin; Z79.899 Other long term (current) drug therapy; I27.20 Pulmonary hypertension, unspecified; I25.5 Ischemic cardiomyopathy; E11.65 Type 2 diabetes mellitus with hyperglycemia; T38.0X5A Adverse effect of glucocorticoids and synthetic analogues, initial encounter; R33.9 Retention of urine, unspecified; I95.9 Hypotension, unspecified; D69.6 Thrombocytopenia, unspecified

== ENCOUNTER 2021-11-22 19:56 | Emergency (ER) | payer MEDICARE ==
[~2021-11-22] VITALS: Ht 172.7 cm; Wt 60.9 kg
[2021-11-22 19:56] VITALS: BP 93/63
[~2021-11-22 19:56] MED LIST changes: +ASPI81TA26 PO; +BACITAB PO; +CARV6.25 PO; +CORE6.25 PO; +DOXY-350 PO; +FLOM0.4C39 PO; +FURO40TA2 PO; +LISI2.5T9 PO; +METO25TA PO; +PANT40TA29 PO; +SPIR12.9 INH; +SYMB16INH INH; +VENTAER INH
== END 2021-11-22 20:21 | disposition left against medical advice (07) ==
LOC: M ED 19:56
DX: Z53.29 Procedure and treatment not carried out because of patient's decision for other reasons (principal)

== ENCOUNTER 2021-12-04 13:19 | Inpatient (IN) | payer MEDICARE ==
[~2021-12-04] VITALS: Ht 172.7 cm; Wt 66.5 kg
[2021-12-04] MEDS ORDERED: methylPREDNISolone 125MG 2ML VIAL IV ONE (14:20)
[2021-12-04] MEDS ORDERED: NS 500 ML IV ONE (14:20)
[2021-12-04] MEDS: IPRATROPIUM 0.5MG/ALBUTEROL 2.5MG INH SOL UD 3ML (DUONEB) NEB PRN ×2 (14:33→14:54)
[2021-12-04 14:55] LABS: ABG BASE EXCESS 2.6 (-2.0-2.0); ABG HCO3 23.8 MEQ/L (22.0-26.0); ABG O2 SATURATION 89.3 % (95.0-99.0); ABG PARTIAL PRESSURE CO2 26.6 mmHg (35.0-45.0); ABG PARTIAL PRESSURE O2 53.7 mmHg (75.0-100.0); ABG STANDARD HCO3 26.6 MEQ/L (22.0-26.0); ABG TOTAL CO2 24.6 MEQ/L (23.0-31.0)
[2021-12-04 15:13] LABS: BASO % 0.6 % (0.0-1.0); EOS % 0.6 % (0.0-3.0); HEMATOCRIT 32.1 % (42.0-52.0); HEMOGLOBIN 10.9 g/dl (13.5-17.5); LYMPH # 0.7 10^3/uL (1.5-5.0); LYMPH % 9.7 % (24.0-44.0); MEAN CORPUSCULAR HEMOGLOBIN 31.1 pg (27.0-33.0); MEAN CORPUSCULAR VOLUME 91.7 fl (80.0-96.0); MONO # 0.2 10^3/uL (0.0-0.8); MONO % 2.8 % (2.0-8.0); NEUTROPHILS # 6.1 10^3/uL (1.5-8.5); NEUTROPHILS % 84.2 % (36.0-66.0); PLATELET COUNT, AUTOMATED 221 10^3/uL (150-450); WHITE BLOOD COUNT 7.2 10^3/uL (4.0-10.0)
[2021-12-04 15:46] LABS: ALBUMIN 2.7 GM/DL (3.2-5.2); ALT/SGPT 20 U/L (12-78); BILIRUBIN,DIRECT 0.5 MG/DL (0.0-0.2); BILIRUBIN,TOTAL 1.2 MG/DL (0.2-1.0); BLOOD UREA NITROGEN 19 MG/DL (7-18); CALCIUM LEVEL 7.5 MG/DL (8.8-10.2); CARBON DIOXIDE LEVEL 26 MEQ/L (21-32); CHLORIDE LEVEL 99 MEQ/L (98-107); CREATININE FOR GFR 0.98 MG/DL (0.70-1.30); GLOMERULAR FILTRATION RATE > 60.0 (>42); GLUCOSE, FASTING 143 MG/DL (70-100); NT-PRO BNP 13523 PG/ML (<450); POTASSIUM SERUM 3.8 MEQ/L (3.5-5.1); SODIUM LEVEL 135 MEQ/L (136-145); TOTAL PROTEIN 5.7 GM/DL (6.4-8.2)
[2021-12-04] MEDS ORDERED: ACETAMINOPHEN TAB 650MG DOSE (2X325MG) PO PRN (16:35)
[2021-12-04] MEDS ORDERED: DEXTROSE 50% 50 ML SYRINGE IV PRN (16:35)
[2021-12-04] MEDS ORDERED: ALBUTEROL SULFATE 2.5 MG/0.5 ML INH NEB SOLN NEB PRN (16:35)
[2021-12-04] MEDS ORDERED: GLUCAGON INJ 1MG VIAL SC PRN (16:35)
[2021-12-04] MEDS ORDERED: GLUCOSE 4GM CHEW TABLET PO PRN (16:35)
[2021-12-04] MEDS ORDERED: FURO20TA2 PO (16:49)
[2021-12-04] MEDS ORDERED: FLOM0.4C39 PO (16:53)
[2021-12-04] MEDS ORDERED: JARD1TAB PO (16:55)
[2021-12-04] MEDS ORDERED: MIDO2.5T PO (16:55)
[2021-12-04] MEDS ORDERED: HOME MED LIST COMPLETE! XX SCH (17:00)
[2021-12-04] MEDS: HumaLOG INSULIN (NovoLOG) PER UNIT SC SCH ×3 (18:27→21:10)
[2021-12-04 19:10] VITALS: BP 100/65
[2021-12-04] MEDS: IPRATROPIUM 0.5MG/ALBUTEROL 2.5MG INH SOL UD 3ML (DUONEB) NEB SCH (19:57)
[2021-12-04] MEDS: SYMBICORT 160/4.5MCG INHALER 6GM INH SCH (19:57)
[2021-12-04 20:00] VITALS: BP 100/65
[2021-12-04] MEDS: SIMVASTATIN 40 MG TAB PO SCH (21:09)
[2021-12-04] MEDS: APIXABAN 5 MG TAB (ELIQUIS) PO SCH (21:09)
[2021-12-04] MEDS: DOXYCYCLINE HYCLATE 100MG TABLET PO SCH (21:09)
[2021-12-04] MEDS: TAMSULOSIN 0.4 MG CAP PO SCH (21:09)
[2021-12-04] MEDS: MIDODRINE 2.5 MG TAB PO SCH (21:09)
[2021-12-04] MEDS: methylPREDNISolone 125MG 2ML VIAL IV SCH (21:10)
[2021-12-05] VITALS (23 sets, daily range): BP systolic 79–94; BP diastolic 51–66; O2SAT 87–95
[2021-12-05] MEDS ORDERED: NS 1,000 ML IV ONE ×2 (00:50→02:40)
[2021-12-05] MEDS: IPRATROPIUM 0.5MG/ALBUTEROL 2.5MG INH SOL UD 3ML (DUONEB) NEB SCH ×4 (01:31→19:35)
[2021-12-05] MEDS: methylPREDNISolone 125MG 2ML VIAL IV SCH (05:45)
[2021-12-05 06:15] LABS: HEMATOCRIT 28.6 % (42.0-52.0); HEMOGLOBIN 9.8 g/dl (13.5-17.5); MEAN CORPUSCULAR HEMOGLOBIN 31.9 pg (27.0-33.0); MEAN CORPUSCULAR HGB CONC 34.3 g/dl (32.0-36.5); MEAN CORPUSCULAR VOLUME 93.2 fl (80.0-96.0); PLATELET COUNT, AUTOMATED 202 10^3/uL (150-450); RED BLOOD COUNT 3.07 10^6/uL (4.30-6.10); WHITE BLOOD COUNT 6.1 10^3/uL (4.0-10.0)
[2021-12-05 06:34] LABS: BLOOD UREA NITROGEN 21 MG/DL (7-18); CALCIUM LEVEL 7.2 MG/DL (8.8-10.2); CARBON DIOXIDE LEVEL 25 MEQ/L (21-32); CHLORIDE LEVEL 102 MEQ/L (98-107); GLOMERULAR FILTRATION RATE > 60.0 (>42); GLUCOSE, FASTING 199 MG/DL (70-100); MAGNESIUM LEVEL 1.1 MG/DL (1.8-2.4); POTASSIUM SERUM 3.3 MEQ/L (3.5-5.1); SODIUM LEVEL 136 MEQ/L (136-145)
[2021-12-05] MEDS: SYMBICORT 160/4.5MCG INHALER 6GM INH SCH ×2 (07:16→19:35)
[2021-12-05] MEDS: DOXYCYCLINE HYCLATE 100MG TABLET PO SCH ×2 (08:49→21:06)
[2021-12-05] MEDS: MIDODRINE 2.5 MG TAB PO SCH ×3 (08:49→15:43)
[2021-12-05] MEDS: MAG SULF 1GM/100ML (MAG RUN) 1 GM in IV 1 EA IV SCH ×2 (08:49→10:19)
[2021-12-05] MEDS: APIXABAN 5 MG TAB (ELIQUIS) PO SCH ×2 (08:49→21:06)
[2021-12-05] MEDS: ASPIRIN 81MG ENTERIC TABLET PO SCH (08:49)
[2021-12-05] MEDS: TAMSULOSIN 0.4 MG CAP PO SCH ×2 (08:49→21:06)
[2021-12-05] MEDS: POTASSIUM CHLORIDE 10MEQ SR TABLET PO SCH ×2 (08:50→21:06)
[2021-12-05] MEDS: FUROSEMIDE 20 MG TAB PO SCH (08:50)
[2021-12-05] MEDS: HumaLOG INSULIN (NovoLOG) PER UNIT SC SCH ×3 (12:34→21:00)
[2021-12-05] MEDS: SIMVASTATIN 40 MG TAB PO SCH (21:06)
[2021-12-06] VITALS (18 sets, daily range): BP systolic 92–106; BP diastolic 56–74; O2SAT 86–95
[2021-12-06] MEDS: IPRATROPIUM 0.5MG/ALBUTEROL 2.5MG INH SOL UD 3ML (DUONEB) NEB SCH ×4 (02:00→19:56)
[2021-12-06 05:26] LABS: HEMATOCRIT 28.8 % (42.0-52.0); HEMOGLOBIN 9.8 g/dl (13.5-17.5); MEAN CORPUSCULAR HEMOGLOBIN 31.9 pg (27.0-33.0); MEAN CORPUSCULAR VOLUME 93.8 fl (80.0-96.0); PLATELET COUNT, AUTOMATED 228 10^3/uL (150-450); RED BLOOD COUNT 3.07 10^6/uL (4.30-6.10); WHITE BLOOD COUNT 9.6 10^3/uL (4.0-10.0)
[2021-12-06 05:48] LABS: BLOOD UREA NITROGEN 20 MG/DL (7-18); CALCIUM LEVEL 7.9 MG/DL (8.8-10.2); CARBON DIOXIDE LEVEL 24 MEQ/L (21-32); CHLORIDE LEVEL 107 MEQ/L (98-107); CREATININE FOR GFR 0.82 MG/DL (0.70-1.30); GLOMERULAR FILTRATION RATE > 60.0 (>42); GLUCOSE, FASTING 107 MG/DL (70-100); MAGNESIUM LEVEL 1.8 MG/DL (1.8-2.4); POTASSIUM SERUM 3.9 MEQ/L (3.5-5.1); SODIUM LEVEL 138 MEQ/L (136-145)
[2021-12-06] MEDS: SYMBICORT 160/4.5MCG INHALER 6GM INH SCH ×2 (07:33→19:56)
[2021-12-06] MEDS ORDERED: FUROSEMIDE 20MG/2ML VIAL (J1940) IV ONE (07:45)
[2021-12-06] MEDS: DOXYCYCLINE HYCLATE 100MG TABLET PO SCH ×2 (08:08→20:35)
[2021-12-06] MEDS: HumaLOG INSULIN (NovoLOG) PER UNIT SC SCH ×4 (08:08→20:35)
[2021-12-06] MEDS: ASPIRIN 81MG ENTERIC TABLET PO SCH (08:08)
[2021-12-06] MEDS: MIDODRINE 2.5 MG TAB PO SCH ×3 (08:08→16:25)
[2021-12-06] MEDS: predniSONE 20 MG TAB PO SCH (08:08)
[2021-12-06] MEDS: POTASSIUM CHLORIDE 10MEQ SR TABLET PO SCH ×2 (08:08→20:35)
[2021-12-06] MEDS: APIXABAN 5 MG TAB (ELIQUIS) PO SCH ×2 (08:08→20:35)
[2021-12-06] MEDS: TAMSULOSIN 0.4 MG CAP PO SCH ×2 (08:09→20:35)
[2021-12-06] MEDS: SIMVASTATIN 40 MG TAB PO SCH (20:34)
[2021-12-07 00:08] VITALS: BP 95/58
[2021-12-07] MEDS: IPRATROPIUM 0.5MG/ALBUTEROL 2.5MG INH SOL UD 3ML (DUONEB) NEB SCH (00:51)
[2021-12-07 04:03] VITALS: BP 96/51
[2021-12-07 05:02] LABS: HEMATOCRIT 28.4 % (42.0-52.0); HEMOGLOBIN 9.5 g/dl (13.5-17.5); MEAN CORPUSCULAR HEMOGLOBIN 31.4 pg (27.0-33.0); MEAN CORPUSCULAR HGB CONC 33.5 g/dl (32.0-36.5); MEAN CORPUSCULAR VOLUME 93.7 fl (80.0-96.0); PLATELET COUNT, AUTOMATED 220 10^3/uL (150-450); RED BLOOD COUNT 3.03 10^6/uL (4.30-6.10); WHITE BLOOD COUNT 8.6 10^3/uL (4.0-10.0)
[2021-12-07 05:24] LABS: BLOOD UREA NITROGEN 21 MG/DL (7-18); CALCIUM LEVEL 7.8 MG/DL (8.8-10.2); CARBON DIOXIDE LEVEL 26 MEQ/L (21-32); CHLORIDE LEVEL 107 MEQ/L (98-107); CREATININE FOR GFR 0.84 MG/DL (0.70-1.30); GLOMERULAR FILTRATION RATE > 60.0 (>42); GLUCOSE, FASTING 159 MG/DL (70-100); MAGNESIUM LEVEL 1.6 MG/DL (1.8-2.4); POTASSIUM SERUM 4.8 MEQ/L (3.5-5.1); SODIUM LEVEL 137 MEQ/L (136-145)
[2021-12-07] MEDS ORDERED: MAGNESIUM OXIDE 400MG TAB (MAG-OX) PO ONE (07:05)
[2021-12-07] MEDS: SYMBICORT 160/4.5MCG INHALER 6GM INH SCH (07:21)
[2021-12-07 08:00] VITALS: BP 95/56
[2021-12-07] MEDS: FUROSEMIDE 20 MG TAB PO SCH (09:00)
[2021-12-07] MEDS: predniSONE 20 MG TAB PO SCH (09:04)
[2021-12-07] MEDS: ASPIRIN 81MG ENTERIC TABLET PO SCH (09:04)
[2021-12-07] MEDS: APIXABAN 5 MG TAB (ELIQUIS) PO SCH (09:04)
[2021-12-07] MEDS: HumaLOG INSULIN (NovoLOG) PER UNIT SC SCH ×2 (09:04→12:00)
[2021-12-07] MEDS: TAMSULOSIN 0.4 MG CAP PO SCH (09:05)
[2021-12-07] MEDS: MIDODRINE 2.5 MG TAB PO SCH ×2 (09:05→12:26)
[2021-12-07 12:00] VITALS: BP 96/66
== END 2021-12-07 13:00 | disposition home health service (06) | DRG 189 ==
LOC: EDBD 13:19 → M ED 13:19 → M ED INP 16:33 → M PCU 19:06
PROVIDERS: ADMIT Family Medicine; ATTEND Family Medicine
DX: J96.21 Acute and chronic respiratory failure with hypoxia (principal); I50.22 Chronic systolic (congestive) heart failure; J44.1 Chronic obstructive pulmonary disease with (acute) exacerbation; I95.9 Hypotension, unspecified; R33.9 Retention of urine, unspecified; E11.9 Type 2 diabetes mellitus without complications; I25.10 Atherosclerotic heart disease of native coronary artery without angina pectoris; I48.91 Unspecified atrial fibrillation; G47.33 Obstructive sleep apnea (adult) (pediatric); Z66 Do not resuscitate; I11.0 Hypertensive heart disease with heart failure; Z95.0 Presence of cardiac pacemaker; Z95.5 Presence of coronary angioplasty implant and graft; Z87.891 Personal history of nicotine dependence; Z79.82 Long term (current) use of aspirin; Z79.84 Long term (current) use of oral hypoglycemic drugs; Z79.01 Long term (current) use of anticoagulants; Z79.899 Other long term (current) drug therapy